=== PATIENT | male | born 1950 ===

== ENCOUNTER 2024-07-11 11:02 | Inpatient (IN) | payer MEDICARE, SELFPAY ==
--- NOTE | ~2024-07-11 | CT_ITS ---
CLINICAL HISTORY: dysarthria, gait disturbance CT angiography head and neck with contrast. 3D Postprocessing. Comparison: CT/SR - CT HEAD FOR STROKE - 07/11/24 18:49 EDT Findings: Aortic arch and cervical great vessels are patent with no aneurysm, dissection, hemodynamically significant stenoses, or occlusion. Intracranial arteries are patent. No aneurysm, dissection, hemodynamically significant stenoses, or occlusion. Incidental note of origin of both posterior cerebral arteries. Incidental note of absence of the left A1 segment. No abnormal intracranial enhancement. The visualized thyroid gland is unremarkable. No cervical mass or fluid collection. Lung apices clear. No lytic or blastic bone lesions. IMPRESSION: Patent head and neck CTA. This document has been electronically signed by: Jean Carlos West MD on 07/11/2024 19:40:57
--- NOTE | ~2024-07-11 | XR_ITS ---
CLINICAL HISTORY: difficulty ambulating Radiographs of the Pelvis and bilateral hips, 5 views Comparison: None Findings: No fracture or dislocation. Kdnt-lq-mqekzpmt degenerative change of the hips, jzgnk-sngymkm-znaa-left. Pubic symphysis and sacroiliac joint spaces are preserved without osteophytosis. Moderate to severe lower lumbar degenerative change. Bone mineralization is normal. Trace vascular calcifications. Prominent amount of stool in the rectum. No soft tissue swelling. Impression: No acute osseous abnormality. Ykmb-gy-cmnqjlsn degenerative change of the hips. Moderate to severe lower lumbar degenerative change. This document has been electronically signed by: Leyda Mckee MD on 07/11/2024 18:57:44
--- NOTE | ~2024-07-11 | XR_ITS ---
EXAMINATION: XR LUMBOSACRAL SPINE CLINICAL INFORMATION: mid lower back pain COMPARISON: None available. TECHNIQUE: Three views of the lumbosacral spine. FINDINGS: Normal bone mineralization. No scoliosis. Straightening of the normal lordosis. Normal sagittal alignment. No fracture, compression deformity, or suspicious bone lesion. Mild to moderate disc degeneration present confined to L4-5 and L5-S1. Discs above L4 appear grossly preserved with minimal degenerative change. Normal facet alignment. Early facet degeneration L4-S1. Imaged SI joints and hip joints demonstrate mild arthritic changes. Sacrum appears intact. Soft tissues demonstrate mild to moderate vascular calcification. XR/XR lumbar spine 2-3V IMPRESSION: 1. No acute bony abnormalities. 2. Mild to moderate spondylosis relatively confined to L4-S1. Electronically signed by: Tino Vera MD 07/11/2024 11:54 AM EDT
--- NOTE | ~2024-07-11 | MR_ITS ---
EXAMINATION: MR BRAIN WITHOUT IV CONTRAST HISTORY: ?CVA TECHNIQUE: Sagittal T1, and axial T1, FLAIR, T2, gradient echo, and diffusion weighted MR images of the brain were obtained. COMPARISON: Correlation is made with an unenhanced head CT dated the . FINDINGS: There is diffuse prominence of the ventricular system and cortical sulci, consistent with atrophy. Periventricular and subcortical white matter hyperintensities are noted on the FLAIR and T2-weighted images which are nonspecific, but often seen in the setting of small vessel ischemic disease. There is a small focus of restricted diffusion in the left coley radiata extending inferiorly to the basal ganglia consistent with an acute infarct. An additional small focus of restricted diffusion is seen in the anteromedial left temporal lobe. There is no mass effect or midline shift. No intra or extra-axial fluid collections are identified. Normal vascular flow voids are noted in the basilar and carotid arteries. The visualized paranasal sinuses are clear. 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 Electronically signed by: Manuel Eubanks MD 07/12/2024 03:24 PM EDT
--- NOTE | ~2024-07-11 | CT_ITS ---
CLINICAL HISTORY: dysarthria, gait disturbance CT head without contrast Comparison: None Findings: No intra-axial mass, midline shift, hydrocephalus, or acute hemorrhage. Cortical banuelos-white differentiation is preserved. Mild cerebral atrophy. Low attenuation in the periventricular white matter consistent with chronic small-vessel ischemic gliosis. Punctate old lacunar infarct in the left basal ganglia. Incidental note of a cavum septum pellucidum. Mucosal thickening of the ethmoid air cells and right frontal sinus. Paranasal sinuses are otherwise clear. The orbits are within normal limits. No skull fracture. IMPRESSION: 1. No acute intracranial findings. This document has been electronically signed by: Jean Carlos West MD on 07/11/2024 19:08:48
[2024-07-11 11:09] VITALS: BP 148/82; PULSE 86; O2SAT 96
--- NOTE | 2024-07-11 11:10 | ED.LOWEXIN ---
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 Reports the pain has been increasing, making it difficult for him to stand up or ambulate. He was diagnosed with sciatica a few years ago and was told to take Tylenol as needed. Denies any new injury/ trauma/ falls. He denies any numbness/tingling of the LEs. Denies headache, dizziness, or vision changes. Denies bowel/ bladder incontinence or retention. Denies dysuria or hematuria. His sister and nephew are at bedside. Patient recently moved here from [place] 3-4 months ago. He is currently residing with his two sisters and his nephew. His sister, Regina, whom is at bedside states that patient is at his baseline mentation. He has been complaining of right lower back pain since arriving at their house a few months ago however it is becoming more constant over the past week. They have been assisting him to ambulate upstairs at home. He ambulates with some physical assistance at baseline however has never required a cane or walker. She also states he's had increased urinary frequency. His family adds that upon leaving [place], he was prescribed a 3 month supply of all of his medications. He has since run out of these medications. It is unclear how long he has been off of them. Related Data Home Medications ?Medication ?Instructions ?Recorded ?Confirmed glimepiride 2 mg tablet 2 mg PO DAILY 07/11/24 metformin 500 mg tablet 500 mg PO DAILY 07/11/24 metoprolol succinate 25 mg 25 mg PO DAILY 07/11/24 tablet,extended release 24 hr rosuvastatin 10 mg tablet 10 mg PO DAILY 07/11/24 Allergies Allergy/AdvReac Type Severity Reaction Status Date / Time No Known Allergies Allergy Verified 07/11/24 11:17 Review of Systems Review of Systems: Yes all other systems are reviewed and are negative PMFSH Past Medical History Attestation statement: The following information was validated with the patient. Source: old records reviewed, obtained from family (sister, nephew) and nursing notes reviewed Social History Social History Advance Directives: No Advance Directives Information Provided: No Do you have a plan to hurt others: No Plan Physical Exam Vital Signs: Vital Signs: Last Vital Signs Temp 98.3 F 07/11/24 19:36 Pulse 71 07/11/24 19:36 Resp 21 H 07/11/24 19:36 BP 143/59 H 07/11/24 19:36 Pulse Ox 97 07/11/24 19:36 O2 Del Method Room Air 07/11/24 19:36 BMI result Body Mass Index 25.6 hypertensive, vitals otherwise wnl General: no acute distress. Skin: Warm, dry, intact. No rashes or lesions. Head: Normocephalic, atraumatic. EENT: Hearing is intact b/l. Conjunctiva clear. PERRLA. EOM intact. Moist mucous membranes.? Neck: Supple without LAD Cardiac: Chest wall symmetric. RRR. Lungs: Normal respiratory effort without accessory muscle use. CTA bilaterally. Abdomen: Soft, non-tender, non-distended. No rebound tenderness or guarding. Positive BS x4. No CVAT. Back: No midline spinous tenderness or step-off deformity. No paraspinal muscle tenderness to palpation. Ext: Upper and lower extremities atraumatic, without tenderness, deformity, swelling or erythema. Full ROM throughout. Neuro: AOx3. 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 NIH 0. Strength 4/5 intact throughout. No saddle anesthesia. Sensation intact to light touch. NV intact distally. Psych: intermittently emotional/ tearful - states this is his basleine. Responds appropriately to questions. NIH Stroke Scale Internal: Initial- Upon Arrival Time: 11:20 Level of Consciousness: Alert Level of Consciousness Questions: Answers both questions correctly Level of Consciousness Commands: Performs both tasks correctly Best Gaze: Normal Visual: No visual loss Facial Palsy: Normal Motor Arm (Right): No drift Motor Arm (Left): No drift Motor Leg (Right): No drift Motor Leg (Left): No drift Limb Ataxia: Absent Sensory: Normal Best Language: No aphasia Dysarthia: Normal Extinction and Inattention: No abnormality Score: 0 Course Course Course Narrative: 1338 -- CBC without leukocytosis or left shift. Normocytic anemia, H&H .5. No priors to compare to. Chemistry without acute electrolyte abnormality requiring intervention. No KARINA. Random glucose 184. total ck mildly elevated to 211. 1L IVF given. no concern for rhabdo. urine infected - will treat UTI w/ ceftin. utox negative. negative covid, flu, and rsv. xr lumbar spine without acute fracture or subluxation. chronic degenerative changes noted. > after discussion with patient and his family, will place consultation for PT/CM as they do not feel patient is safe for discharge home given his pain and difficulty with ambulation. both patient and family confirm that he is full code. he is alert and oriented and capable of making his own decisions. > patient placed in physician observation at this time 1845 -- Patient's niece is now at bedside. she tells me that patient is not at his baseline. she noticed he began to mumble last night prior to him going to bed around 2300. he has also had difficulty with grasping objects since that time as well. On arrival, I noticed some degree of dysarthria. I asked patient and both family members at bedside (sister and nephew) whom patient lives with if this is patient's baseline speech and all three of them reassured myself, and Norma RN at bedside, that this is his baseline speech. his exam was otherwise nonfocal on arrival. on repeat exam, NIH now 1 (with dysarthria). his exam is otherwise nonfocal. > I spoke with my attending, Dr. Cueto regarding new information. We have decided to order CT/ CTA head/ neck to rule out stroke. anticipate admission. 1948 -- CT/CTA head/neck unremarkable. Given reported dysarthria, patient will likely require admission for further work up/ MRI. I spoke with hospitalist, Dr. Carrillo. Patient will be admitted to medicine for further stroke workup. Medications Administered Generic Name Dose Route Start Last Admin Trade Name Freq PRN Reason Stop Dose Admin Cefuroxime Axetil 250 mg 07/11/24 13:45 07/11/24 20:43 Cefuroxime Axetil 250 Mg Tablet PO 250 mg BID JACIEL Administration Discontinued Medications Generic Name Dose Route Start Last Admin Trade Name Jayson PRN Reason Stop Dose Admin Acetaminophen 975 mg 07/11/24 13:39 07/11/24 13:51 Acetaminophen 325 Mg Tablet PO 07/11/24 13:40 975 mg ONCE ONE Administration Sodium Chloride 1,000 mls @ 999 mls/hr 07/11/24 12:30 07/11/24 15:17 Ns IV 07/11/24 13:30 Infused .Q1H1M JACIEL Infusion Iohexol 100 ml 07/11/24 18:53 07/11/24 18:54 Iohexol 350 Mg/Ml 100 Ml Infus..Btl IV 07/11/24 18:54 70 ml ONCE ONE Administration Medical Decision Making Medical Decision Making [facility] Narrative: 73 year old male with pmhx significant for HTN and DM presents to the ED today via EMS from home for evaluation of right lower back pain radiating to right lower extremity x5 years. hypertensive, vitals otherwise wnl. he is nontoxic appearing. please refer to physical exam portion for findings. Differential diagnosis includes compression fracture, msk sprain/strain, contusion, sciatica, arthritis, urinary tract infection. Lower suspicion for renal colic, nephrolithiasis. Unlikely cauda equina, Guillain-[place], epidural abscess, cord compression. Plan for basic labs, UA, imaging, pain control, and re-evaluation. Anticipate PT/CM for disposition. Differential Diagnosis Differential Diagnoses: The differential diagnosis associated with the presentation includes As above Admission/Observation Consideration of admission/observation: Escalation of care including admission/observation considered patient admitted to medicine for dysarthria Consult Healthcare Provider Management of the patient was discussed with: Hospitalist (de. carrillo) Lab Data [facility] Lab Attestation statement: I reviewed the patient's lab results. As above 07/11/24 11:52 07/11/24 11:52 Labs: Lab Results 07/11/24 07/11/24 07/11/24 Range/Units 11:52 12:18 19:34 WBC 9.1 (4.8-10.8) X10*3/uL RBC 4.80 (4.60-5.80) X10*6/uL Hgb 13.0 L (14.0-18.0) g/dl Hct 38.5 L (42.0-52.0) % MCV 80.2 (80.0-98.0) fL MCH 27.1 (27.0-33.0) pg MCHC 33.8 (31.0-36.0) g/dl RDW 12.8 (11.0-16.0) % Plt Count 233 (160-400) X10*3/uL MPV 10.5 (9.4-12.4) fL Immature Gran % (Auto) 0.2 (0.0-0.4) % Neut % (Auto) 73.0 (45-73) % Lymph % (Auto) 19.8 L (20-40) % [place] % (Auto) 6.4 (2-11) % Eos % (Auto) 0.1 (0-4) % Baso % (Auto) 0.5 (0-2) % Lymph # (Auto) 1.8 (1.2-4.9) X10*3/uL [place] # (Auto) 0.6 (0.1-1.2) X10*3/uL Eos # (Auto) 0.0 (0.0-0.4) X10*3/uL Baso # (Auto) 0.1 (0.0-0.2) X10*3/uL Abs Immat Gran (auto) 0.02 (0.00-0.03) X10*3/uL Absolute Neuts (auto) 6.7 (2.0-8.3) x10*3/uL Absolute Nucleated RBC 0.000 (0.0-0.012) X10*3/uL Nucleated RBC % (auto) 0.0 (0.0-0.2) /100WBC PT 15.1 H (10.9-12.4) SEC INR 1.3 H (0.9-1.1) APTT 30.1 (26.0-36.8) SEC Sodium 138 (135-145) mmol/L Potassium 4.0 (3.3-5.1) mmol/L Chloride 105 (96-108) mmol/L Carbon Dioxide 28 (22-29) mmol/L Anion Gap 9 L (12-20) BUN 6 L (9-16) mg/dL Creatinine 0.70 (0.5-1.4) mg/dL Estim Creat Clear Calc 81.0 Estimated GFR > 60 Random Glucose 184 H (60-115) mg/dL Calcium 8.7 (8.4-10.2) mg/dL Magnesium 1.7 (1.6-2.6) mg/dL Total Bilirubin 0.4 (0.0-1.0) mg/dL AST 24 (5-37) U/L ALT 13 (0-40) U/L Alkaline Phosphatase 61 (39-117) U/L Total Creatine Kinase 211 H (38-174) U/L Troponin I High Sens 19.2 (<3.5-35.0) ng/L Total Protein 6.9 (6.5-8.0) g/dL Albumin 3.8 (3.5-5.0) g/dL Lipase 22 (8-78) U/L Urine Color Yellow Urine Appearance Cloudy Urine pH 7.0 (5.0-9.0) Ur Specific [place] >= 1.030 H (1.005-1.025) Urine Protein Trace (Neg-Trace) mg/dL Urine Glucose (UA) >=1000 H (Negative) mg/dL Urine Ketones 40 (Negative) mg/dL Urine Blood Negative (Negative) Urine Nitrite Negative (Negative) Ur Leukocyte Esterase Small (1+) H (Negative) Urine RBC 0-2 (0-2) /HPF Urine WBC >50 H (0-5) /HPF Ur Squamous Epith Cells 0-2 (0-2) /HPF Urine Bacteria 1+ (None Seen) Hyaline Casts 0-2 (0-2) /LPF Urine Opiates Screen Not Detected (Not Detect) Ur Buprenorphine Scrn Not Detected (Not Detect) ng/mL Ur Oxycodone Screen Not Detected (Not Detect) ng/mL Urine Methadone Screen Not Detected (Not Detect) ng/mL Urine Fentanyl Screen Not Detected (Not Detect) Ur Barbiturates Screen Not Detected (Not Detect) Ur Phencyclidine Scrn Not Detected (Not Detect) Ur Amphetamines Screen Not Detected (Not Detect) U Benzodiazepines Scrn Not Detected (Not Detect) Urine Cocaine Screen Not Detected (Not Detect) U Marijuana (THC) Screen Not Detected (Not Detect) Influenza Type A (PCR) NEGATIVE (Negative) Influenza Type B (PCR) NEGATIVE (Negative) RSV RNA Qual (PCR) NEGATIVE (Negative) SARS-CoV-2 RNA (RT-PCR) NEGATIVE (Negative) Independent Interpretation I performed an independent interpretation of an: Plain X-Ray Interpretation: X-ray lumbar spine without acute fracture ekg showing nsr, without acute ischemic changes or st elevations ct head/brain without bleed or mass Radiology Impression Discussion of test interpretation with radiology: I have reviewed the radiologist's reading. Radiologist Impression: Procedure(s): XR lumbar spine 2-3V Accession Number(s): [id number] cc: Georgia Turner~ EXAMINATION: XR LUMBOSACRAL SPINE CLINICAL INFORMATION: mid lower back pain COMPARISON: None available. TECHNIQUE: Three views of the lumbosacral spine. FINDINGS: Normal bone mineralization. No scoliosis. Straightening of the normal lordosis. Normal sagittal alignment. No fracture, compression deformity, or suspicious bone lesion. Mild to moderate disc degeneration present confined to L4-5 and L5-S1. Discs above L4 appear grossly preserved with minimal degenerative change. Normal facet alignment. Early facet degeneration L4-S1. Imaged SI joints and hip joints demonstrate mild arthritic changes. Sacrum appears intact. Soft tissues demonstrate mild to moderate vascular calcification. XR/XR lumbar spine 2-3V IMPRESSION: 1. No acute bony abnormalities. 2. Mild to moderate spondylosis relatively confined to L4-S1. Electronically signed by: Tino Vera MD 07/11/2024 11:54 AM EDT RP Procedure(s): CT head for STROKE Accession Number(s): [id number] cc: Physician,None ; Georgia Turner~ Report Number: [id number]: Total DLP = 605.00 mGy-cm ADDENDUMThis document has been electronically signed by: Jean Carlos West MD on 07/11/2024 19:08:48 ADDENDUM: This report was discussed with Flor Cuevas RN on Jul 11, 2024 19:16:00 EDT. This document has been electronically signed by: Daija Angel on 07/11/2024 19:17:18 Addendum Dictated By: Jean Carlos West MD Addendum Signed By: <Electronically signed by Jean Carlos West MD in OV> 07/11/241917 Addendum Cosigned By: DD/ TD/TT: 07/11/24 CLINICAL HISTORY: dysarthria, gait disturbance CT head without contrast Comparison: None Findings: No intra-axial mass, midline shift, hydrocephalus, or acute hemorrhage. Cortical banuelos-white differentiation is preserved. Mild cerebral atrophy. Low attenuation in the periventricular white matter consistent with chronic small-vessel ischemic gliosis. Punctate old lacunar infarct in the left basal ganglia. Incidental note of a cavum septum pellucidum. Mucosal thickening of the ethmoid air cells and right frontal sinus. Paranasal sinuses are otherwise clear. The orbits are within normal limits. No skull fracture. IMPRESSION: 1. No acute intracranial findings. This document has been electronically signed by: Jean Carlos West MD on 07/11/2024 19:08:48 Procedure(s): CT angio head neck STROKE Accession Number(s): [id number] cc: Physician,None ; Georgia Turner~ Report Number: [id number]: Total DLP = 671.00 mGy-cm CLINICAL HISTORY: dysarthria, gait disturbance CT angiography head and neck with contrast. 3D Postprocessing. Comparison: CT/SR - CT HEAD FOR STROKE - 07/11/24 18:49 EDT Findings: Aortic arch and cervical great vessels are patent with no aneurysm, dissection, hemodynamically significant stenoses, or occlusion. Intracranial arteries are patent. No aneurysm, dissection, hemodynamically significant stenoses, or occlusion. Incidental note of origin of both posterior cerebral arteries. Incidental note of absence of the left A1 segment. No abnormal intracranial enhancement. The visualized thyroid gland is unremarkable. No cervical mass or fluid collection. Lung apices clear. No lytic or blastic bone lesions. IMPRESSION: Patent head and neck CTA. This document has been electronically signed by: Jean Carlos West MD on 07/11/2024 19:40:57 Independent Historian Clinical information obtained from an independent historian. History obtained from or confirmed by: Other (sister, nephew, niece) Prescription Management I considered prescription management with: Pain Medication and Antibiotic Chronic Conditions Patient?s care impacted by: Diabetes and Hypertension Social Determinants Patient?s care significantly limited by Social Determinants of Health including: Other Social Determinant of Health Critical Care Time Critical Care Time Critical Care Time: No Discharge Plan Discharge Clinical Impression: Urinary tract infection, Low back pain, Dysarthria Patient Disposition: Admitted As Inpatient Print Language: Micronesian
[2024-07-11 11:12] VITALS: BP 162/75; PULSE 74; RESP 16; TEMP 36.8; O2SAT 98
[2024-07-11 11:14] VITALS: BP 162/75; PULSE 74; RESP 14; TEMP 36.8; O2SAT 98; BMI 25.6
[2024-07-11 11:58] LABS: MANUAL DIFF FLAG NO
[2024-07-11 11:59] LABS: Basophils Absolute Auto 0.1 X10*3/uL (0.0-0.2); Basophils Percent Auto 0.5 % (0-2); Eosinophils Percent Auto 0.1 % (0-4); Hematocrit 38.5 % (42.0-52.0); Imm Gran Abs Auto 0.02 X10*3/uL (0.00-0.03); Imm Gran Pct Auto 0.2 % (0.0-0.4); Lymphocytes Absolute Auto 1.8 X10*3/uL (1.2-4.9); Lymphocytes Percent Auto 19.8 % (20-40); Mean Corpuscular HGB Conc 33.8 g/dl (31.0-36.0); Mean Corpuscular Hemoglobin 27.1 pg (27.0-33.0); Mean Corpuscular Volume 80.2 fL (80.0-98.0); Mean Platelet Volume 10.5 fL (9.4-12.4); Monocytes Absolute Auto 0.6 X10*3/uL (0.1-1.2); Monocytes Percent Auto 6.4 % (2-11); Neutrophils Absolute Auto 6.7 x10*3/uL (2.0-8.3); Platelet Count 233 X10*3/uL (160-400); Red Cell Distribution Width 12.8 % (11.0-16.0); White Blood Count 9.1 X10*3/uL (4.8-10.8)
[2024-07-11 12:15] LABS: Alanine Aminotransferase 13 U/L (0-40); Albumin Level 3.8 g/dL (3.5-5.0); Alkaline Phosphatase 61 U/L (39-117); Anion Gap 9 (12-20); Aspartate Amino Transferase 24 U/L (5-37); Bilirubin Total 0.4 mg/dL (0.0-1.0); Blood Urea Nitrogen 6 mg/dL (9-16); Calcium 8.7 mg/dL (8.4-10.2); Carbon Dioxide 28 mmol/L (22-29); Chloride 105 mmol/L (96-108); Estimated Glomerular Filt Rate > 60; Glucose Random 184 mg/dL (60-115); Lipase 22 U/L (8-78); Magnesium 1.7 mg/dL (1.6-2.6); Sodium 138 mmol/L (135-145); Total Protein 6.9 g/dL (6.5-8.0)
[2024-07-11 12:29] LABS: Appearance Urine Cloudy; Color Urine Yellow; Glucose Urine UA >=1000 mg/dL (Negative); Leukocyte Esterase Urine Small (1+) (Negative); Nitrite Urine Negative (Negative); Specific Gravity - Urine >= 1.030 (1.005-1.025); UMIC TRIGGER UACC YES; Urine Blood Negative (Negative); Urine Ketones 40 mg/dL (Negative); Urine Protein Trace mg/dL (Neg-Trace)
[2024-07-11 12:36] LABS: Influenza A PCR NEGATIVE (Negative); Influenza B PCR NEGATIVE (Negative); Resp Syncy Virus RNA Qual PCR NEGATIVE (Negative); SARS COV2 PCR INHOUSE NEGATIVE (Negative)
[2024-07-11 12:38] LABS: Amphetamine Screen Urine Not Detected (Not Detect); Barbiturates, Urine Not Detected (Not Detect); Benzodiazepines Screen Urine Not Detected (Not Detect); Buprenorphine Scr Not Detected (Not Detect); Cannabinoid Screen Urine Not Detected (Not Detect); Cocaine Screen Urine Not Detected (Not Detect); Fentanyl, urine Not Detected (Not Detect); Methadone Screen, Urine Not Detected (Not Detect); Opiate Screen Urine Not Detected (Not Detect); Oxycodone Screen Urine Not Detected (Not Detect); Phencyclidine Screen Urine Not Detected (Not Detect)
[2024-07-11] MEDS: 0.9 % Sodium Chloride 1,000 ML 999 ML IV (12:38)
[2024-07-11 12:41] LABS: Bacteria Urine 1+ (None Seen); Hyaline Casts Urine 0-2 /LPF (0-2); RBC Urine 0-2 /HPF (0-2); Squamous Epithelial Cell Urine 0-2 /HPF (0-2); UACC Culture Trigger YES; WBC Urine >50 /HPF (0-5)
[2024-07-11] MEDS: cefuroxime axetiL 250 MG TABLET PO ×2 (13:51→20:43)
[2024-07-11] MEDS: Acetaminophen 325 MG TABLET 975 MG PO (13:51)
[2024-07-11 14:21] VITALS: BP 162/75; PULSE 74; O2SAT 98
--- NOTE | 2024-07-11 14:23 | MHC.CM.ED ---
Received case management consult from Georgia PASCUAL. Patient came to the ER due to leg pain and difficulty ambulating. Physical therapy eval completed. Rehab is recommended. It does not appear patient has been inpatient any facility in the past 30 days. Referral will be made to all 3 acute rehab facilities. Continue to monitor for d/c needs.
--- NOTE | 2024-07-11 15:34 | MHC.CM.ED ---
Met with patient, 2 sisters and video specialist. Patient lives with 1 of his sisters, ambulates independently and had no services prior to coming to the ER. Patient does not have an established PCP yet Patient moved from [place] about 4 months ago. Patient's PCP provided 3 months worth of prescriptions. Patient ran out of those medications for DM and HTN. Patient and sisters aware [facility] unable to offer a bed. Waiting to hear if [facility] can offer a bed. If [facility] is not able to offer a bed, private pay SNF placement is not an option for patient and family. VNA will also not be able to be made because patient has not established care with a PCP. Patient has a new patient appointment on 07/30. Patient and sisters are aware patient will have to d/c home with family caring for patient. Continue to monitor for d/c needs.
--- NOTE | 2024-07-11 18:53 | ECG_ITS ---
Test Reason : stroke Blood Pressure : */* mmHG Vent. Rate : 69 BPM Atrial Rate : 69 BPM P-R Int : 136 ms QRS Dur : 74 ms QT Int : 394 ms P-R-T Axes : * 192 126 degrees QTcB Int : 422 ms Suspect limb lead reversal, interpretation assumes no reversal Normal sinus rhythm Right superior axis deviation Abnormal ECG No previous ECGs available Referred By: Georgia Turner Electronically Signed By: ALEKSANDAR BURNETT MD
[2024-07-11] MEDS: iohexoL 350 MG/ML 100 ML INFUS..BTL IV (18:54)
--- NOTE | 2024-07-11 19:16 | PC.NURSE ---
Phone call from [facility] notification from Daija Angel of No acute findings on CT SCAN w. contrast provider SAMARA Turner notified.
[2024-07-11 19:36] VITALS: BP 143/59; PULSE 71; RESP 21; TEMP 36.8; O2SAT 97
[2024-07-11 19:45] LABS: INTERNATIONAL NORM RATIO 1.3 (0.9-1.1); Prothrombin Time 15.1 SEC (10.9-12.4)
[2024-07-11 19:48] LABS: Partial Thromboplastin Time 30.1 SEC (26.0-36.8)
--- NOTE | 2024-07-11 19:49 | MHC.CM.ED ---
CM met with patient, sisters and niece. Pt and sisters are French speaking only. Niece speaks Romanian. language interpreter used. HCP reviewed, completed and signed. Uploaded into [facility]. Copies given to niece. HCP/niece Nick Pruett ). Family tells CM that patient uses a walker and furniture walks in the home . He can normally complete ADL's. Had great difficulty ambulating today, Could not get OOB. Had difficultly feeding himself and holding his utensils. Bedrooms are on the second floor. His sisters are unable to care for him at right now. They are requesting patient remain overnight. Provider aware. Pt was medically cleared. PT recommended rehab and acute referrals were made, as patient does not have a qualifying stay. Has Medicare. As noted, patient moved from [place] to be cared for by family. Pt has his first PCP appointment with Juan Alberto SINGH at [facility] adult Primary care on 07/30. Pt cannot have home services, as he does not have a PCP. There are also insurance concerns. Pt received no bed offers at acute rehab. Pt has a Medicare advantage program-[place]. He [place] medicaid, not [place]. Pt will have additional medical work up. Referral placed with [facility] financial for assistance with [employer] application. Pt will remain overnight, with possible admission. Daughter encouraged to complete application for (or convert [place] to [facility] [facility] [facility], as medicaid does not transfer from state to [facility]. CM will follow for safe discharge plan.
[2024-07-11 19:50] LABS: Troponin-I High Sensitivity 19.2 ng/L (<3.5-35.0)
--- NOTE | 2024-07-11 21:38 | PHA.MEDREC ---
Addendum entered by Nevaeh De Leon [facility] 07/12/24 14:41: Reviewed by [facility] Addendum entered by Namita Patel 07/12/24 14:21: Got list faxed from [facility] and Metformin and Glimperide that was filled over there vs what the family confirmed with us is. The patient family confirmed Metformin 500mg but on the list from [facility] it showed the patient had gotten a Metformin 850mg tab twice a day, the family also confirmed the Glimperide 2mg tab once a day and looking at the list faxed to us the patient had gotten Glimperide 4mg tab once daily 01/16; I called the patients family and they had bottles of Metformin 850mg tab twice a day and Glimperide 4mg tab once a day filled in January 2024 at home still. Original Note: Pharmacy Consult ? Medication Reconciliation Pharmacy has completed the medication reconciliation. Spoke with patient through an rn immunology, he was able to list some medication names but no directions. Called patients hermes [place]. She was able to get medication names from her mom reading his prescriptions at home: metoprolol 25 mg, glimepiride 2 mg, metformin 500 mg, and rosuvastatin 10 mg. Patient did list off more medications. Samanta gave me his pharmacy from [place]. Will have med [facility] call them tomorrow to follow up on med list. [facility] [phone].
[2024-07-11 22:31] VITALS: BP 163/71; PULSE 74; RESP 16; TEMP 36.9; O2SAT 97
[2024-07-12] VITALS (11 sets, daily range): BP systolic 138–163; BP diastolic 62–102; PULSE 66–99; RESP 15–20; TEMP 36.6–37.2; O2SAT 90–98
[2024-07-12 00:34] LABS: Cholesterol 92 mg/dL (<200); HDL Cholesterol 43 mg/dL (>40); LDL Cholesterol Calculated 39 mg/dL (<100); Triglycerides 54 mg/dL (<150)
[2024-07-12] MEDS: Aspirin 325 MG TABLET PO (00:42)
[2024-07-12] MEDS: Enoxaparin Sodium 40 MG/0.4 ML SYRINGE SUBCUT ×2 (00:43→22:32)
--- NOTE | 2024-07-12 02:32 | P.HPHOSP_ITS ---
History of Present Illness Date of Service: 07/11/24 Attending physician on admission: Darrel Carrillo Chief Complaint: back pain, weakness Patient is a 78-year-old Urdu-speaking male with a past medical history significant for HTN and type 2 diabetes, who presented to the ED due to chronic right lower back pain radiating to the lower extremities and weakness. Reports right-sided weakness today in inability to ambulate. He also reports dysarthria which was mentioned by a family member while in the ED, the patient agrees. Last known time prior to weakness and dysarthria is unknown. Patient also reports urinary frequency but denies any urgency, dysuria or hematuria. He denies any headache, fever, chills, numbness or tingling, change in vision, bowel or bladder incontinence. He recently moved here from [place], and has been without his medications for hypertension and diabetes for an unknown period of time. Review of Systems 2 Constitutional: Constitutional: Denies body ache(s), Denies chills, Denies fatigue, Denies fever(s) and Denies headache(s) Eyes: Eyes: Denies change in vision and Denies photophobia ENT: Denies dizziness, Denies headache(s), Denies nasal congestion, Denies nasal discharge and Denies sore throat Cardiovascular: Cardiovascular: Denies chest pain, Denies rapid heart rate, Denies leg edema, Denies lightheadedness and Denies dyspnea Respiratory: Respiratory: Denies chest congestion, Denies cough, Denies dyspnea and Denies wheezing Gastrointestinal: Gastrointestinal: Denies abdominal pain, Denies melena, Denies hematochezia, Denies diarrhea, Denies nausea and Denies vomiting Genitourinary: Genitourinary: Denies difficulty urinating, Denies dysuria, Reports urinary frequency and Denies urinary urgency Musculoskeletal: Musculoskeletal: Reports muscle weakness (right side), Denies numbness and Denies tingling Integumentary/Breasts: Skin/Breast: Denies rash Neurologic: Denies confusion, Denies dizziness, Denies headache(s), Reports focal weakness, Denies numbness and Denies tingling Psychiatric: Psychiatric: Denies confusion Endocrine: Endocrine: Denies fatigue Hematologic/Lymphatic: Hematologic/Lymphatic: Denies easy bleeding and Denies easy bruising Allergic/Immunologic: Allergic/Immunologic: Denies wheezing [facility] Medical History (Updated 07/12/24 @ 02:46 by Iraida Cardenas PA-C) Chronic back pain Type 2 diabetes mellitus without complications HTN (hypertension) Functional capacity: uses cane/walker Social History Advance Directives: No Advance Directives Information Provided: No Do you have a plan to hurt others: No Plan Narrative: History of smoking, no alcohol or drug use Meds Allergies Allergy/AdvReac Type Severity Reaction Status Date / Time No Known Allergies Allergy Verified 07/11/24 11:17 Active Medications: Current Medications Acetaminophen (Acetaminophen 325 Mg Tablet) 975 mg PO Q6H PRN PRN Reason: Pain, Mild 1-3,fever,headache Calcium Carbonate (Calcium Carbonate 750 Mg Tab.Chew) 750 mg PO Q4H PRN PRN Reason: Heartburn Cefuroxime Axetil (Cefuroxime Axetil 250 Mg Tablet) 250 mg PO BID [facility] Last Admin: 07/11/24 20:43 Dose: 250 mg Dextrose (Dextrose 50 % 25 Gm/50 Ml Syringe) 25 gm IVPUSH Q15M PRN; Protocol PRN Reason: per Hypoglycemia Standing Ord. Enoxaparin Sodium (Enoxaparin Sodium 40 Mg/0.4 Ml Syringe) 40 mg SUBCUT Q24H [facility] Last Admin: 07/12/24 00:43 Dose: 40 mg Glucose (Glucose Gel 15 Gm Gel..Gram.) 15 gm PO Q15M PRN; Protocol PRN Reason: per Hypoglycemia Standing Ord. Insulin Human Lispro (Insulin Lispro 100 Unit/Ml 3 Ml Vial) 0 unit SUBCUT QIDACHS [facility]; Protocol Magnesium Hydroxide (Milk Of Magnesia 30 Ml Oral.Susp) 30 ml PO DAILY PRN PRN Reason: Constipation Melatonin (Melatonin 3 Mg Tablet) 6 mg PO BEDTIME PRN PRN Reason: Insomnia Ondansetron HCl (Ondansetron Hcl 4 Mg/2 Ml Vial) 4 mg IVPUSH Q8H PRN PRN Reason: Nausea and Vomiting Oxycodone HCl (Oxycodone Hcl Immed Release 5 Mg Tablet) 5 mg PO Q6H PRN PRN Reason: Pain, Moderate(Pain Scale 4-6) Polyethylene Glycol (Polyethylene Glycol 3350 17 Gm Powd.Pack) 17 gm PO DAILY PRN PRN Reason: Constipation Sodium Chloride (0.9 % Sodium Chloride Flush 3 Ml Syringe) 3 ml IVFLUSH QSHIFT [facility] Last Admin: 07/12/24 00:43 Dose: Not Given Home Medications ?Medication ?Instructions ?Recorded ?Confirmed ?Last Taken ?Type glimepiride 2 mg tablet 2 mg PO DAILY 07/11/24 Unknown History metformin 500 mg tablet 500 mg PO DAILY 07/11/24 Unknown History metoprolol succinate 25 mg 25 mg PO DAILY 07/11/24 Unknown History tablet,extended release 24 hr rosuvastatin 10 mg tablet 10 mg PO DAILY 07/11/24 Unknown History Physical Exam 2 Vital Signs and Narrative: Vital Signs: Last Vital Signs Temp 98.9 F 07/12/24 01:42 Pulse 99 07/12/24 01:42 Resp 19 07/12/24 01:42 BP 147/76 H 07/12/24 01:42 Pulse Ox 95 07/12/24 01:42 O2 Del Method Room Air 07/12/24 01:42 BMI result Body Mass Index 25.6 General: AOx3, no acute distress. Seen with aerial photograph interpreter Resp: CTA bilaterally CVS: S1, S2, RRR GI: +BS, NT, no distention Skin: Warm, dry Neuro: Pupils equal round and reactive to light, EOMs intact, patient will sensation intact bilaterally. Tongue deviates to the left, slight facial droop to the left, dysarthria. Right upper extremity weakness, 3 to 4/5 right side, 4 to 5/5 left side. Mild asymmetry with strength in right lower extremity versus left lower extremity. Motor grossly intact bilaterally Extremities: No LE edema Psych: Appropriate affect Const: General: No confusion Orientation/consciousness: No confusion Eyes: Direct Ophthalmoscopy: No photophobia Neuro: General: No confusion Results Labs 07/11/24 11:52 07/11/24 11:52 Labs: Laboratory Results - last 24 hr 07/11/24 07/11/24 07/11/24 11:52 12:18 19:34 MCV 80.2 MCH 27.1 MCHC 33.8 RDW 12.8 Plt Count 233 MPV 10.5 Immature Gran % (Auto) 0.2 Neut % (Auto) 73.0 Lymph % (Auto) 19.8 L [place] % (Auto) 6.4 Eos % (Auto) 0.1 Baso % (Auto) 0.5 Lymph # (Auto) 1.8 [place] # (Auto) 0.6 Eos # (Auto) 0.0 Baso # (Auto) 0.1 Abs Immat Gran (auto) 0.02 Absolute Neuts (auto) 6.7 Absolute Nucleated RBC 0.000 Nucleated RBC % (auto) 0.0 PT 15.1 H INR 1.3 H APTT 30.1 Anion Gap 9 L Estim Creat Clear Calc 81.0 Estimated GFR > 60 Random Glucose 184 H Calcium 8.7 Magnesium 1.7 Total Bilirubin 0.4 AST 24 ALT 13 Alkaline Phosphatase 61 Total Creatine Kinase 211 H Total Protein 6.9 Albumin 3.8 Triglycerides 54 Cholesterol 92 LDL Cholesterol, Calc 39 HDL Cholesterol 43 Lipase 22 Urine Color Yellow Urine Appearance Cloudy Urine pH 7.0 Ur Specific [place] >= 1.030 H Urine Protein Trace Urine Glucose (UA) >=1000 H Urine Ketones 40 Urine Blood Negative Urine Nitrite Negative Ur Leukocyte Esterase Small (1+) H Urine RBC 0-2 Urine WBC >50 H Ur Squamous Epith Cells 0-2 Urine Bacteria 1+ Hyaline Casts 0-2 Urine Opiates Screen Not Detected Ur Buprenorphine Scrn Not Detected Ur Oxycodone Screen Not Detected Urine Methadone Screen Not Detected Urine Fentanyl Screen Not Detected Ur Barbiturates Screen Not Detected Ur Phencyclidine Scrn Not Detected Ur Amphetamines Screen Not Detected U Benzodiazepines Scrn Not Detected Urine Cocaine Screen Not Detected U Marijuana (THC) Screen Not Detected Influenza Type A (PCR) NEGATIVE Influenza Type B (PCR) NEGATIVE RSV RNA Qual (PCR) NEGATIVE SARS-CoV-2 RNA (RT-PCR) NEGATIVE Imaging Radiologist's Impressions: Impressions Lumbar Spine X-Ray 07/11/24 11:26 IMPRESSION: 1. No acute bony abnormalities. 2. Mild to moderate spondylosis relatively confined to L4-S1. Electronically signed by: Tino Vera MD 07/11/2024 11:54 AM EDT Assessment and Plan (1) Dysarthria: Status: Acute (2) Right sided weakness: Status: Acute (3) Urinary tract infection: Status: Acute (4) Chronic back pain: Status: Chronic Plan Patient is a 78-year-old male with a past medical history significant for HTN and type 2 diabetes, who presented to the ED due to chronic right lower back pain radiating to the lower extremities and weakness. Reports right-sided weakness today in inability to ambulate. Dysarthria and right-sided weakness, likely CVA - head CT and CTA head and neck negative - u tox negative - EKG with NSR - continued dysarthria and right upper extremity/right lower extremity weakness - last known prior to deficits unknown - MRI brain ordered - passed bedside swallow - PT/OT eval - neurology consult - monitor on telemetry - ASA 325 mg given - continue statin, await Neurology recommendation for possible increased dose - lipid panel within normal limits - neuro checks q.2h - stroke education Urinary tract infection - UA positive, culture pending - started on Ceftin in ED, continue pending culture Chronic back pain - lumbar spine x-ray with no acute bony abnormalities, [id number] spondylosis relatively confined to L4-S1 - bilateral hip/pelvis x-rays with no acute osseous abnormality. Mild to moderate degenerative change of the hips. Moderate to severe lower lumbar degenerative changes. HTN - BP okay at this time - resume metoprolol 25 mg daily when appropriate Type 2 diabetes - hold home glimepiride and metformin - sliding scale insulin - diabetic diet - A1C pending Full code VTE prophylaxis: Lovenox Patient with new onset dysarthria and right-sided weakness, likely CVA, complicated by urinary tract infection, requiring admission for at least 2 midnights stay for further neurologic evaluation and monitoring. Quality Stroke Does the patient have a stroke diagnosis?: Yes Reason for No Anti-thrombotic by Day Two: Drug treatment not indicated VTE Prior VTE?: No VTE Risk Level:: Medical - moderate - high VTE Device Contraindication: Treatment Not Indicated VTE Drug Contraindication: N/A - Med Ordered
[2024-07-12 04:23] LABS: Glucose, Whole Blood 158 mg/dL (60-115)
[2024-07-12 05:59] LABS: Estimated Average Glucose 203 mg/dL; Hemoglobin A1c % 8.7 % (<6.0); Total Hemoglobin (HGBA1C) 3447.9232 umol/L
[2024-07-12 06:12] LABS: Hematocrit 36.3 % (42.0-52.0); Hemoglobin 12.4 g/dl (14.0-18.0); Mean Corpuscular HGB Conc 34.2 g/dl (31.0-36.0); Mean Corpuscular Hemoglobin 27.5 pg (27.0-33.0); Mean Corpuscular Volume 80.5 fL (80.0-98.0); Platelet Count 200 X10*3/uL (160-400); Red Blood Count 4.51 X10*6/uL (4.60-5.80); White Blood Count 6.3 X10*3/uL (4.8-10.8)
[2024-07-12 06:29] LABS: Anion Gap 11 (12-20); Blood Urea Nitrogen 4 mg/dL (9-16); Calcium 8.3 mg/dL (8.4-10.2); Carbon Dioxide 26 mmol/L (22-29); Chloride 105 mmol/L (96-108); Creatinine Clr Calc Pharmacy 82.2; Estimated Glomerular Filt Rate > 60; Glucose Random 149 mg/dL (60-115); Potassium 3.9 mmol/L (3.3-5.1); Sodium 138 mmol/L (135-145)
[2024-07-12 08:10] LABS: Glucose, Whole Blood 152 mg/dL (60-115)
[2024-07-12] MEDS: cefuroxime axetiL 250 MG TABLET PO ×2 (08:40→22:34)
[2024-07-12] MEDS: 0.9 % Sodium Chloride Flush 3 ML SYRINGE IVFLUSH ×3 (08:40→22:34)
[2024-07-12] MEDS: Insulin Lispro 100 UNIT/ML 3 ML VIAL SUBCUT ×3 (08:40→22:34)
--- NOTE | 2024-07-12 08:48 | PC.NURSE ---
MRI screening sheet completed and faxed. Pt continues with right sided weakness, right facial droop and some garbled speech. Pt tolerated am medication with water without any cough.
--- NOTE | 2024-07-12 12:28 | P.CNNE_ITS ---
History of Present Illness Data of Consult Service Date: 07/12/24 Primary Care Provider: None Physician HPI Reason for consult: Dysarthria 73 years old man with hypertension who came to hospital for back pain but also reported difficulty with speaking. Onset of difficulties with speaking was unclear and for possibility of stroke this consultation was requested. There was no complaint of associated arm or leg weakness or any visual symptom. Review of Systems 2 Review of Systems: No recent cold or flu-like illness. [facility] Past Medical History Medical History Chronic back pain Type 2 diabetes mellitus without complications HTN (hypertension) Social History Social History Household Members: Family Housing: House Do you presently have visiting nurse or other home services: No Patient Tobacco Use Status: Never used Tobacco Use of substances other than those prescribed or required for medical reasons: No Have you been hit, kicked, punched, or otherwise hurt by someone within the past year? If so, by whom?: No Do you feel safe in your current relationship?: No Current Relationship Is there a partner from a previous relationship who is making you feel unsafe now?: No Are you made to feel afraid or neglected: No Advance Directives: No Advance Directives Information Provided: No Do you have a plan to hurt others: No Plan Recently lost weight without trying: No How much weight loss: Not applicable Eating poorly because of decreased appetite: No Nutrition screen score: 0 Nutrition Risks: No Nutritional Risk Poor oral hygiene: No Meds Allergies Allergy/AdvReac Type Severity Reaction Status Date / Time No Known Allergies Allergy Verified 07/11/24 11:17 Active Medications: Current Medications Acetaminophen (Acetaminophen 325 Mg Tablet) 975 mg PO Q6H PRN PRN Reason: Pain, Mild 1-3,fever,headache Calcium Carbonate (Calcium Carbonate 750 Mg Tab.Chew) 750 mg PO Q4H PRN PRN Reason: Heartburn Cefuroxime Axetil (Cefuroxime Axetil 250 Mg Tablet) 250 mg PO BID [facility] Last Admin: 07/12/24 08:40 Dose: 250 mg Dextrose (Dextrose 50 % 25 Gm/50 Ml Syringe) 25 gm IVPUSH Q15M PRN; Protocol PRN Reason: per Hypoglycemia Standing Ord. Enoxaparin Sodium (Enoxaparin Sodium 40 Mg/0.4 Ml Syringe) 40 mg SUBCUT Q24H [facility] Last Admin: 07/12/24 00:43 Dose: 40 mg Glucose (Glucose Gel 15 Gm Gel..Gram.) 15 gm PO Q15M PRN; Protocol PRN Reason: per Hypoglycemia Standing Ord. Insulin Human Lispro (Insulin Lispro 100 Unit/Ml 3 Ml Vial) 0 unit SUBCUT QIDACHS [facility]; Protocol Last Admin: 07/12/24 11:10 Dose: Not Given Magnesium Hydroxide (Milk Of Magnesia 30 Ml Oral.Susp) 30 ml PO DAILY PRN PRN Reason: Constipation Melatonin (Melatonin 3 Mg Tablet) 6 mg PO BEDTIME PRN PRN Reason: Insomnia Ondansetron HCl (Ondansetron Hcl 4 Mg/2 Ml Vial) 4 mg IVPUSH Q8H PRN PRN Reason: Nausea and Vomiting Oxycodone HCl (Oxycodone Hcl Immed Release 5 Mg Tablet) 5 mg PO Q6H PRN PRN Reason: Pain, Moderate(Pain Scale 4-6) Polyethylene Glycol (Polyethylene Glycol 3350 17 Gm Powd.Pack) 17 gm PO DAILY PRN PRN Reason: Constipation Sodium Chloride (0.9 % Sodium Chloride Flush 3 Ml Syringe) 3 ml IVFLUSH QSHIFT [facility] Last Admin: 07/12/24 08:40 Dose: 3 ml Home Medications ?Medication ?Instructions ?Recorded ?Confirmed ?Last Taken ?Type glimepiride 2 mg tablet 2 mg PO DAILY 07/11/24 Unknown History metformin 500 mg tablet 500 mg PO DAILY 07/11/24 Unknown History metoprolol succinate 25 mg 25 mg PO DAILY 07/11/24 Unknown History tablet,extended release 24 hr rosuvastatin 10 mg tablet 10 mg PO DAILY 07/11/24 Unknown History Physical Exam 2 Vital Signs: Vital Signs: Last Vital Signs Temp 98.0 F 07/12/24 11:20 Pulse 72 07/12/24 11:20 Resp 20 07/12/24 11:20 BP 154/79 H 07/12/24 11:20 Pulse Ox 98 07/12/24 11:20 O2 Del Method Room Air 07/12/24 11:20 O2 Flow Rate 2 07/12/24 04:54 BMI result Body Mass Index 25.6 Neuro: Other: He is alert and awake with normal spontaneity and fluency of speech. He is able to name and repeat. Speech is moderately slurred. There is moderate left-sided tongue deviation. Otherwise face is symmetrical. Visual galarza are full. There was mild bilateral [id number] tremor. No definite drift is noted. Right plantars extensor in left is equivocal. Deep tendon reflexes are trace to absent. There was no neglect. Results Labs 07/12/24 05:41 07/12/24 05:41 Labs: Short CBC 07/12/24 Range/Units 05:41 WBC 6.3 (4.8-10.8) X10*3/uL Hgb 12.4 L (14.0-18.0) g/dl Hct 36.3 L (42.0-52.0) % Plt Count 200 (160-400) X10*3/uL BMP 07/12/24 05:41 Sodium 138 Potassium 3.9 Chloride 105 Carbon Dioxide 26 BUN 4 L Creatinine 0.69 Calcium 8.3 L Urine 07/11/24 Range/Units 12:18 Urine Color Yellow Urine Appearance Cloudy Urine pH 7.0 (5.0-9.0) Ur Specific [place] >= 1.030 H (1.005-1.025) Urine Protein Trace (Neg-Trace) mg/dL Urine Glucose (UA) >=1000 H (Negative) mg/dL Head CT did not reveal any obvious acute abnormality. Moderate chronic microvascular disease and mild cerebral atrophy was noted. CTA of brain and neck did not reveal any stenosis. EKG was okay. Microbiology Microbiology Results: Microbiology 07/11/24 Unknown Urine Catheterized - Straight Catheter Urine Culture - Preliminary Enterococcus/Streptococcus sp Assessment and Plan (1) Dysarthria: Status: Acute 73 years old man with moderate dysarthria and left-sided tongue deviation. I recommend noncontrast MRI of brain to rule out brainstem infarct. Procedures Date of Service Date of Service: 07/12/24
[2024-07-12 12:51] LABS: Glucose, Whole Blood 156 mg/dL (60-115)
--- NOTE | 2024-07-12 13:22 | MHC.CM.PN ---
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 HCP is his niece, Nick, was confirmed. He does not have home health services or use DME. Family to can transport home at [place], although DCP may be to [place] or [place]. CM to follow for DC needs.
--- NOTE | 2024-07-12 13:42 | HO.PM.IMPN ---
Subjective Subjective Date of Service: 07/12/24 Interval History: seen and examined this morning follow up for weakness, difficulty with speech, concern for stroke pt awake alert no other complaints Review of Systems Review of Systems: Yes all other systems are reviewed and are negative Constitutional Constitutional: Denies chills and Denies fever(s) Cardiovascular Cardiovascular: Denies chest pain Gastrointestinal Gastrointestinal: Denies abdominal pain Physical Exam Vital Signs: Vital Signs: Last Vital Signs Temp 98.0 F 07/12/24 11:20 Pulse 72 07/12/24 11:20 Resp 20 07/12/24 11:20 BP 154/79 H 07/12/24 11:20 Pulse Ox 98 07/12/24 11:20 O2 Del Method Room Air 07/12/24 11:20 O2 Flow Rate 2 07/12/24 04:54 BMI result Body Mass Index 25.6 Const: Other: Tearful General: comfortable, alert and awake Nutritional Appearance: average body habitus Orientation/consciousness: oriented to person and oriented to place Resp: Effort & Inspection: normal respiratory effort, able to speak in complete sentences, no respiratory distress and no use of accessory muscles Cardio: Rate: regular rate GI: Inspection: No distended Palpation (GI): Soft to palpation Neuro: Other: left side tongue deviation, strength equal b/l; able to move all 4 extremities General: oriented to person and oriented to place Objective Data Active Medications Acetaminophen (Acetaminophen 325 Mg Tablet) 975 mg PO Q6H PRN PRN Reason: Pain, Mild 1-3,fever,headache Calcium Carbonate (Calcium Carbonate 750 Mg Tab.Chew) 750 mg PO Q4H PRN PRN Reason: Heartburn Cefuroxime Axetil (Cefuroxime Axetil 250 Mg Tablet) 250 mg PO BID [facility] Last Admin: 07/12/24 08:40 Dose: 250 mg Documented By: PABLO Dextrose (Dextrose 50 % 25 Gm/50 Ml Syringe) 25 gm IVPUSH Q15M PRN; Protocol PRN Reason: per Hypoglycemia Standing Ord. Enoxaparin Sodium (Enoxaparin Sodium 40 Mg/0.4 Ml Syringe) 40 mg SUBCUT Q24H [facility] Last Admin: 07/12/24 00:43 Dose: 40 mg Documented By: GENESIS Glucose (Glucose Gel 15 Gm Gel..Gram.) 15 gm PO Q15M PRN; Protocol PRN Reason: per Hypoglycemia Standing Ord. Insulin Human Lispro (Insulin Lispro 100 Unit/Ml 3 Ml Vial) 0 unit SUBCUT QIDACHPhil [facility]; Protocol Last Admin: 07/12/24 11:10 Dose: Not Given Documented By: BOBBY Non-Admin Reason: NPO Magnesium Hydroxide (Milk Of Magnesia 30 Ml Oral.Susp) 30 ml PO DAILY PRN PRN Reason: Constipation Melatonin (Melatonin 3 Mg Tablet) 6 mg PO BEDTIME PRN PRN Reason: Insomnia Ondansetron HCl (Ondansetron Hcl 4 Mg/2 Ml Vial) 4 mg IVPUSH Q8H PRN PRN Reason: Nausea and Vomiting Oxycodone HCl (Oxycodone Hcl Immed Release 5 Mg Tablet) 5 mg PO Q6H PRN PRN Reason: Pain, Moderate(Pain Scale 4-6) Polyethylene Glycol (Polyethylene Glycol 3350 17 Gm Powd.Pack) 17 gm PO DAILY PRN PRN Reason: Constipation Sodium Chloride (0.9 % Sodium Chloride Flush 3 Ml Syringe) 3 ml IVFLUSH [facility] Last Admin: 07/12/24 08:40 Dose: 3 ml Documented By: PABLO Labs 07/12/24 05:41 07/12/24 05:41 Labs: Laboratory Results - last 24 hr 07/11/24 07/11/24 07/11/24 11:52 18:12 19:34 MCV MCH MCHC RDW Plt Count MPV Absolute Nucleated RBC Nucleated RBC % (auto) PT 15.1 H INR 1.3 H APTT 30.1 Anion Gap Estim Creat Clear Calc Estimated GFR POC Glucose 158 H Random Glucose Estimat Average Glucose 203 Hemoglobin A1c % 8.7 H Calcium Triglycerides 54 Cholesterol 92 LDL Cholesterol, Calc 39 HDL Cholesterol 43 07/12/24 07/12/24 07/12/24 05:41 07:25 11:07 MCV 80.5 MCH 27.5 MCHC 34.2 RDW 13.0 Plt Count 200 MPV 11.0 Absolute Nucleated RBC 0.000 Nucleated RBC % (auto) 0.0 PT INR APTT Anion Gap 11 L Estim Creat Clear Calc 82.2 Estimated GFR > 60 POC Glucose 152 H 156 H Random Glucose 149 H Estimat Average Glucose Hemoglobin A1c % Calcium 8.3 L Triglycerides Cholesterol LDL Cholesterol, Calc HDL Cholesterol Microbiology Microbiology Results: Microbiology 07/11/24 Unknown Urine Culture - Preliminary Urine Catheterized - Straight Catheter Enterococcus/Streptococcus sp Assessment and Plan (1) Right sided weakness: Status: Acute Plan Patient is a 78-year-old male with a past medical history significant for HTN and type 2 diabetes, who presented to the ED due to chronic right lower back pain radiating to the lower extremities and weakness. Reports right-sided weakness today in inability to ambulate. Dysarthria and right-sided weakness, concern for acute CVA head CT and CTA head and neck negative last known prior to deficits unknown MRI brain pending passed bedside swallow PT/OT eval - rec STR/acute reahb seen by neurology recommend brain MRI Continue aspirin, start Lipitor 40 mg lipid panel within normal limits stroke education Urinary tract infection UA positive, culture pending started on Ceftin in ED, continue pending culture Chronic back pain lumbar spine x-ray with no acute bony abnormalities, [id number] spondylosis relatively confined to L4-S1 bilateral hip/pelvis x-rays with no acute osseous abnormality. Mild to moderate degenerative change of the hips. Moderate to severe lower lumbar degenerative changes. HTN BP okay at this time resume metoprolol 25 mg daily when appropriate Type 2 diabetes hold home glimepiride and metformin sliding scale insulin diabetic diet A1C 8.7 Full code VTE prophylaxis: Lovenox me drec pending Patient with new onset dysarthria and right-sided weakness, likely CVA, complicated by urinary tract infection, requiring admission for at least 2 midnights stay for further neurologic evaluation and monitoring. Quality Stroke Does the patient have a stroke diagnosis?: Yes Reason for No Anti-thrombotic by Day Two: Drug treatment not indicated VTE Prior VTE?: No VTE Risk Level:: Medical - moderate - high VTE Device Contraindication: Treatment Not Indicated VTE Drug Contraindication: N/A - Med Ordered
[2024-07-12 17:07] LABS: Glucose, Whole Blood 247 mg/dL (60-115)
--- NOTE | 2024-07-12 17:44 | MHC.SL.SWA ---
Speech Pathologist Impression: Risk of Aspiration Due to: Neurological Condition Dysphasia Diet Status: Liquid Consistency and Strategies for Safe Swallow: Liquid Intake Recommendation: [place] Thick Liquid Intake Strategies: Small Sips No Straws Solid Food Consistency: Dietary Recommendations: Chopped/Advanced (NDD3) Additional Modifications to Solid Foods: Patient was able to do some independent self feeding during this evaluation, however will need initially direct supervision with assistance as needed at meals. Oral Medication Intake: Crushed with Puree Please contact the pharmacy regarding appropriate crushable or liquid drug formulations that are available whenever modified delivery is recommended. Compensatory Strategies and Precautions to be Taken for Safe Swallow: Sitting Upright (90 deg) No Straw Liquids from Cup Liquids from Spoon Small Bites and Sips Alternate Liquids/Solids Supervision While Eating and Drinking for Safe Swallow: Total Supervision (1:1) Foods to Avoid: Tough, difficult to chew solids, mixed consistencies. Swallowing Recommended Treatments: Compens. Strategy Educat. Recommendation for Speech: Inpatient Speech Therapy Speech Therapy through A Speech Therapy through Rehab Facility Comment: Patient presents with mild oral pharyngeal dysphagia, unilateral right oral facial weakness, moderate dysarthria. Recommend START diet of Chopped/Advanced with NECTAR THICK liquids, pills crushed in puree. Patient will require full supervision at meals with assistance at meals as needed, monitor for aspiration signs/aspiration precautions. Recommend follow up Speech/Language/Cognitive assessment, ? mild baseline cognitive issues. MD notified of recommendation by secure text, RN in person. DIGITAL RETOUCHER will continue to follow. Frequency/Duration: Date Range for Service Req: Timeline to reassess: Public Health Microbiologist Clinican/Clinical Fellow: No Supervisory Statement: I have reviewed and agree with the student/clinical fellow's documentation: N/A Speech Language Pathologist: Kriss Judge M.A., [facility]DIGITAL RETOUCHER
[2024-07-12 21:58] LABS: Glucose, Whole Blood 240 mg/dL (60-115)
[2024-07-12] MEDS: Atorvastatin Calcium 40 MG TABLET PO (22:34)
[2024-07-13] VITALS (7 sets, daily range): BP systolic 131–168; BP diastolic 74–82; PULSE 67–82; RESP 14–20; TEMP 36–37.5; O2SAT 96–100
[2024-07-13 07:56] LABS: Hematocrit 40.7 % (42.0-52.0); Hemoglobin 13.6 g/dl (14.0-18.0); Mean Corpuscular HGB Conc 33.4 g/dl (31.0-36.0); Mean Corpuscular Hemoglobin 27.1 pg (27.0-33.0); Mean Corpuscular Volume 81.2 fL (80.0-98.0); Mean Platelet Volume 10.9 fL (9.4-12.4); Platelet Count 207 X10*3/uL (160-400); Red Blood Count 5.01 X10*6/uL (4.60-5.80); Red Cell Distribution Width 13.2 % (11.0-16.0); White Blood Count 8.1 X10*3/uL (4.8-10.8)
[2024-07-13 08:10] LABS: Anion Gap 13 (12-20); Blood Urea Nitrogen 7 mg/dL (9-16); Calcium 8.9 mg/dL (8.4-10.2); Carbon Dioxide 26 mmol/L (22-29); Chloride 103 mmol/L (96-108); Creatinine Clr Calc Pharmacy 73.6; Estimated Glomerular Filt Rate > 60; Glucose Random 175 mg/dL (60-115); Potassium 3.8 mmol/L (3.3-5.1); Sodium 138 mmol/L (135-145)
[2024-07-13 08:16] LABS: Glucose, Whole Blood 160 mg/dL (60-115)
[2024-07-13] MEDS: Insulin Lispro 100 UNIT/ML 3 ML VIAL SUBCUT ×4 (08:42→21:21)
[2024-07-13] MEDS: cefuroxime axetiL 250 MG TABLET PO (08:43)
[2024-07-13] MEDS: Aspirin Enteric Coated 81 MG TABLET.DR PO (08:43)
[2024-07-13] MEDS: Metoprolol Succinate ER 25 MG TAB.ER.24H PO (08:43)
[2024-07-13] MEDS: 0.9 % Sodium Chloride Flush 3 ML SYRINGE IVFLUSH ×2 (08:47→18:00)
--- NOTE | 2024-07-13 10:00 | CA_ITS ---
Transthoracic Echocardiogram Patient (Last, First, Middle): Mason Macario, Gender: Male Date of : 1950 Age: 73 Procedure Date: 07/13/2024 Procedure Type: Transthoracic Echocardiogram Location: [facility] [place] Height: 162.56 cm Weight: 67.59 kg BSA: 1.73 m2 Heart Rate: bpm BP: 150 / 80 mmHg Jointer Operator: TO Referring MD: Ysabel PASCUAL In Home Aide: Don Christiansen MD Symptoms: stroke protocol Study Quality: Fair/Contrast ECG Rhythm: Sinus Conclusions: - 1. Mildly reduced LV ejection fraction 45-50% with impaired relaxation filling pattern 2. No significant abnormalities of cardiac valvular Dopplers 3. No gross pericardial effusion Findings Procedure Information Contrast agent, definity, is being given per protocol without apparent complications. Left Ventricle Normal left ventricular cavity size. There is normal left ventricular wall thickness. The left ventricular systolic function is mildly decreased. The visually estimated ejection fraction is between 45-50%. Spectral Doppler is indicative of an impaired relaxation filling pattern. E/E prime ratio is between 8 and 15 consistent with indeterminate filling pressures. There is no evidence of a thrombus in the left ventricle. Right Ventricle The right ventricle was not well visualized. Atria The left atrium is normal in size. Interatrial shunt cannot be excluded. The right atrium was not well visualized. Aortic Valve There is mild calcification of the aortic valve. There is no aortic valve stenosis. There is no aortic valve regurgitation. Mitral Valve There is mild anterior and posterior mitral leaflet thickening. There is trace mitral valve regurgitation. There is no mitral valve stenosis. Pulmonic Valve The pulmonic valve was not well visualized. Tricuspid Valve The tricuspid valve was not well visualized. Tricuspid regurgitation envelope is inadequate for calculation of right ventricular systolic pressure. Normal right atrial pressure. Great Vessels All visible segments of the aorta are normal in size. The pulmonary artery was not well visualized. There is no dilatation of the ascending aorta measuring 3.10 cm. Small plaque is seen in the sino tubular ridge. Venous The inferior vena cava is normal in size and collapses greater than 50% with inspiration. Pericardium/Pleural There is no evidence of pericardial effusion. Prior Study Comparison No prior study available for comparison. Measurements 2D Linear Measurements IVSd: 0.95 0.6-0.9/0.6-1.0 cm LVIDd: 4.53 3.9-5.3/4.2-5.9 cm LVIDd Index: 2.62 2.4-3.2/2.2-3.1 cm/m2 LVIDs: 2.94 2.0-3.6 cm LVPWd: 0.80 0.7-1.1 cm LA Diam: 2.20 2.7-3.8/3.0-4.0 cm LAIDs Index: 1.27 1.5-2.3 cm/m2 LV Mass: 161.76 67-162/88-224 g LV Mass Index: 93.51 43-95/49-115 g/m2 LVOT Diam: 2.00 3.0+(-)1.3 cm 2D Systolic Function EF 4C: 49.60 >55% EF 2C: 42.80 >55% EF BiP: 46.40 >55% Mitral Valve MV Pk E: 0.45 MV PK A: 0.71 MV Decel Time: 183.00 E/A: 0.60 E'Lateral: 4.90 E'Medial: 3.81 E/E' Med: 11.70 E/E' Lat: 9.10 PHT: 54.00 MVA PHT: 4.07 Decel [place]: 2.43 Aortic Valve AoV Pk Blade: 0.99 AoV Mn Blade: 0.70 AoV VTI: 0.19 AoV Pk Grad: 4.00 Aov Mn Grad: 2.00 QUENTIN Cont.VTI: 2.28 LVOT LVOT Pk Blade: 0.65 LVOT Mn Blade: 0.41 LVOT VTI: 0.14 LVOT Pk Grad: 2.00 LVOT Mn Grad: 1.00 LVOT Diam: 2.00 LVOT Area: 3.14 Diastolic Function MV Pk E: 0.45 MV Pk A: 0.71 E/A: 0.60 E'Medial: 3.81 E/E' Med: 11.70 E' Laterial: 4.90 E/E' Lat: 9.10 Right Ventricle TAPSE (mm): 18.90 TVS' Blade: 10.60 Tricuspid Valve RA Press: 3.00 Great Vessels Aorta Sinus of Valsalva: 3.53 2.0-3.5 cm Ao Asc: 3.10 2.1-3.4 cm Updated in Other Vendor System with Status of Final Don Christiansen MD electronically signed on 07/13/2024 4:47:25 PM with status of Final
[2024-07-13 10:59] LABS: Glucose, Whole Blood 272 mg/dL (60-115)
[2024-07-13 12:47] LABS: Glucose, Whole Blood 158 mg/dL (60-115)
--- NOTE | 2024-07-13 14:44 | HO.PM.IMPN ---
Subjective Subjective Date of Service: 07/13/24 Interval History: Seen and examined this morning Follow-up for speech change, weakness. MRI positive for acute stroke History obtained with the assistance of a house shorer no overnight events Review of Systems Review of Systems: Yes all other systems are reviewed and are negative Constitutional Constitutional: Denies chills and Denies fever(s) Physical Exam Vital Signs: Vital Signs: Last Vital Signs Temp 96.8 F 07/13/24 11:09 Pulse 82 07/13/24 11:09 Resp 18 07/13/24 11:09 BP 131/79 07/13/24 11:09 Pulse Ox 96 07/13/24 11:09 O2 Del Method Room Air 07/13/24 11:09 O2 Flow Rate 2 07/12/24 04:54 BMI result Body Mass Index 25.6 Const: General: comfortable, alert and awake Nutritional Appearance: average body habitus Orientation/consciousness: oriented to person and oriented to place Resp: Effort & Inspection: normal respiratory effort, able to speak in complete sentences, no respiratory distress and no use of accessory muscles Cardio: Rate: regular rate GI: Inspection: No distended Palpation (GI): Soft to palpation Neuro: Other: left side tongue deviation, strength equal b/l; able to move all 4 extremities General: oriented to person and oriented to place Objective Data Active Medications Acetaminophen (Acetaminophen 325 Mg Tablet) 975 mg PO Q6H PRN PRN Reason: Pain, Mild 1-3,fever,headache Aspirin (Aspirin Enteric Coated 81 Mg Tablet.) 81 mg PO DAILY COUNTS INCLUDE 234 BEDS AT THE [facility] Last Admin: 07/13/24 08:43 Dose: 81 mg Documented By: CHAIM Atorvastatin Calcium (Atorvastatin Calcium 40 Mg Tablet) 40 mg PO BEDTIME COUNTS INCLUDE 234 BEDS AT THE [facility] Last Admin: 07/12/24 22:34 Dose: 40 mg Documented By: MARCELLA Calcium Carbonate (Calcium Carbonate 750 Mg Tab.Chew) 750 mg PO Q4H PRN PRN Reason: Heartburn Dextrose (Dextrose 50 % 25 Gm/50 Ml Syringe) 25 gm IVPUSH Q15M PRN; Protocol PRN Reason: per Hypoglycemia Standing Ord. Enoxaparin Sodium (Enoxaparin Sodium 40 Mg/0.4 Ml Syringe) 40 mg SUBCUT Q24H COUNTS INCLUDE 234 BEDS AT THE [facility] Last Admin: 07/12/24 22:32 Dose: 40 mg Documented By: MARCELLA Glucose (Glucose Gel 15 Gm Gel..Gram.) 15 gm PO Q15M PRN; Protocol PRN Reason: per Hypoglycemia Standing Ord. Insulin Human Lispro (Insulin Lispro 100 Unit/Ml 3 Ml Vial) 0 unit SUBCUT QIDACHS COUNTS INCLUDE 234 BEDS AT THE [facility]; Protocol Last Admin: 07/13/24 12:27 Dose: 6 unit Documented By: CATRACHO Levofloxacin (Levofloxacin 250 Mg Tablet) 250 mg PO Q24H COUNTS INCLUDE 234 BEDS AT THE [facility] Magnesium Hydroxide (Milk Of Magnesia 30 Ml Oral.Susp) 30 ml PO DAILY PRN PRN Reason: Constipation Melatonin (Melatonin 3 Mg Tablet) 6 mg PO BEDTIME PRN PRN Reason: Insomnia Metoprolol Succinate (Metoprolol Succinate Er 25 Mg Tab.Er.24h) 25 mg PO DAILY COUNTS INCLUDE 234 BEDS AT THE [facility]; Protocol Last Admin: 07/13/24 08:43 Dose: 25 mg Documented By: CHAIM Ondansetron HCl (Ondansetron Hcl 4 Mg/2 Ml Vial) 4 mg IVPUSH Q8H PRN PRN Reason: Nausea and Vomiting Oxycodone HCl (Oxycodone Hcl Immed Release 5 Mg Tablet) 5 mg PO Q6H PRN PRN Reason: Pain, Moderate(Pain Scale 4-6) Polyethylene Glycol (Polyethylene Glycol 3350 17 Gm Powd.Pack) 17 gm PO DAILY PRN PRN Reason: Constipation Sodium Chloride (0.9 % Sodium Chloride Flush 3 Ml Syringe) 3 ml IVFLUSH QSHIFT COUNTS INCLUDE 234 BEDS AT THE [facility] Last Admin: 07/13/24 08:47 Dose: 3 ml Documented By: CHAIM Labs 07/13/24 07:06 07/13/24 07:06 Labs: Laboratory Results - last 24 hr 07/11/24 07/12/24 07/12/24 19:05 16:50 21:24 MCV MCH MCHC RDW Plt Count MPV Absolute Nucleated RBC Nucleated RBC % (auto) Anion Gap Estim Creat Clear Calc Estimated GFR POC Glucose 158 H 247 H 240 H Random Glucose Calcium 07/13/24 07/13/24 07/13/24 06:55 07:06 10:43 MCV 81.2 MCH 27.1 MCHC 33.4 RDW 13.2 Plt Count 207 MPV 10.9 Absolute Nucleated RBC 0.000 Nucleated RBC % (auto) 0.0 Anion Gap 13 Estim Creat Clear Calc 73.6 Estimated GFR > 60 POC Glucose 160 H 272 H Random Glucose 175 H Calcium 8.9 D Microbiology Microbiology Results: Microbiology 07/11/24 Unknown Urine Culture - Final Urine Catheterized - Straight Catheter Enterococcus faecalis Assessment and Plan (1) Acute stroke due to ischemia: Status: Acute Plan Patient is a 78-year-old male with a past medical history significant for HTN and type 2 diabetes, who presented to the ED due to chronic right lower back pain radiating to the lower extremities and weakness. Reports right-sided weakness today in inability to ambulate. Dysarthria and right-sided weakness, concern for acute CVA head CT and CTA head and neck negative last known prior to deficits unknown MRI + for small acute infarcts of the left coley radiata/basal ganglia and anteromedial left temporal lobe speech therapy rec NDD3 diet , with supervision PT/OT eval - rec STR/acute rehab seen by neurology Continue aspirin, start Lipitor 40 mg lipid panel within normal limits stroke education echo pending Urinary tract infection UCx growing Enterococcus faecalis will change antibiotics to levofloxacin 07/13 Chronic back pain lumbar spine x-ray with no acute bony abnormalities, [id number] spondylosis relatively confined to L4-S1 bilateral hip/pelvis x-rays with no acute osseous abnormality. Mild to moderate degenerative change of the hips. Moderate to severe lower lumbar degenerative changes. HTN BP okay at this time resumed metoprolol Type 2 diabetes hold home glimepiride and metformin sliding scale insulin diabetic diet A1C 8.7 Full code VTE prophylaxis: Jaskaran attempted to call emergency contact to update - no answer dispo - STR vs acute rehab Patient with new onset dysarthria and right-sided weakness, likely CVA, complicated by urinary tract infection, requiring admission for at least 2 midnights stay for further neurologic evaluation and monitoring. Quality Stroke Does the patient have a stroke diagnosis?: Yes Reason for No Anti-thrombotic by Day Two: Drug treatment not indicated VTE Prior VTE?: No VTE Risk Level:: Medical - moderate - high VTE Device Contraindication: Treatment Not Indicated VTE Drug Contraindication: N/A - Med Ordered
--- NOTE | 2024-07-13 14:56 | MHC.SL.SWA ---
Speech Pathologist Impression: Risk of Aspiration, Oropharyngeal Dysphagia Risk of Aspiration Due to: Neurological Condition Dysphasia Diet Status: No Change Liquid Consistency and Strategies for Safe Swallow: Liquid Intake Recommendation: [place] Thick Liquid Intake Strategies: Small Sips No Straws Solid Food Consistency: Dietary Recommendations: Chopped/Advanced (NDD3) Additional Modifications to Solid Foods: Patient was able to do some independent self feeding during this evaluation, however will need initially direct supervision with assistance as needed at meals. Oral Medication Intake: Crushed with Puree Please contact the pharmacy regarding appropriate crushable or liquid drug formulations that are available whenever modified delivery is recommended. Compensatory Strategies and Precautions to be Taken for Safe Swallow: Sitting Upright (90 deg) No Straw Small Bites and Sips Alternate Liquids/Solids Rate of Ingestion Change Avoid Specific Foods Supervision While Eating and Drinking for Safe Swallow: Total Assistance (1:1) Foods to Avoid: Tough, difficult to chew solids, mixed consistencies. Swallowing Recommended Treatments: Compens. Strategy Educat. Recommendation for Speech: Inpatient Speech Therapy Comment: Patient presents with mild oral pharyngeal dysphagia, unilateral right oral facial weakness, moderate dysarthria. Recommend diet of Chopped/Advanced with NECTAR THICK liquids, pills crushed in puree. Patient will require full supervision at meals with assistance at meals as needed, monitor for aspiration signs/aspiration precautions. Recommend follow up Speech/Language/Cognitive assessment, ? mild baseline cognitive issues. CASINO GAMING WORKER will continue to follow. Frequency/Duration: Date Range for Service Req: Timeline to reassess: Nursing Education Consultant Clinican/Clinical Fellow: No Supervisory Statement: I have reviewed and agree with the student/clinical fellow's documentation: N/A Speech Language Pathologist: Dixie Johnson M.A., CCC-CASINO GAMING WORKER
[2024-07-13 16:11] LABS: Prothrombin Time Whole Bld POC 15.9 sec (11.1-13.5); ~PT, ~INR - Anti Coag Clinic 1.3 (0.9-1.1)
--- NOTE | 2024-07-13 16:19 | MHC.CM.PN ---
Addendum entered by Conchis Genao 07/13/24 16:21: CORRECTION: RHONA [phone] Original Note: CM MET WITH PT AND NIECE THEY ARE AWARE PTS INSURANCE WILL NEED TO BE CHANGED TO GO TO REHAB HERE REFERRAL S[place] [facility] [place], THEY WILL CONTACT HELDER MELGOZA [phone]
--- NOTE | 2024-07-13 18:01 | PC.NURSE ---
this nurse called pharmacy approx [phone] on 07/13 , requested levaquin dose, not delivered by pharm as of 1800
[2024-07-13] MEDS: Atorvastatin Calcium 40 MG TABLET PO (20:54)
[2024-07-14] VITALS (7 sets, daily range): BP systolic 137–152; BP diastolic 73–82; PULSE 68–83; RESP 14–19; TEMP 36.1–37.1; O2SAT 94–96
[2024-07-14] MEDS: Enoxaparin Sodium 40 MG/0.4 ML SYRINGE SUBCUT (00:30)
[2024-07-14] MEDS: 0.9 % Sodium Chloride Flush 3 ML SYRINGE IVFLUSH ×4 (00:31→21:19)
[2024-07-14 02:01] LABS: Glucose, Whole Blood 215 mg/dL (60-115)
[2024-07-14 02:02] LABS: Glucose, Whole Blood 163 mg/dL (60-115)
[2024-07-14 08:03] LABS: Hematocrit 41.3 % (42.0-52.0); Hemoglobin 13.7 g/dl (14.0-18.0); Mean Corpuscular HGB Conc 33.2 g/dl (31.0-36.0); Mean Corpuscular Hemoglobin 27.1 pg (27.0-33.0); Mean Corpuscular Volume 81.6 fL (80.0-98.0); Mean Platelet Volume 11.1 fL (9.4-12.4); Platelet Count 205 X10*3/uL (160-400); Red Blood Count 5.06 X10*6/uL (4.60-5.80); Red Cell Distribution Width 13.4 % (11.0-16.0); White Blood Count 6.2 X10*3/uL (4.8-10.8)
[2024-07-14 08:14] LABS: Anion Gap 11 (12-20); Blood Urea Nitrogen 4 mg/dL (9-16); Calcium 8.7 mg/dL (8.4-10.2); Carbon Dioxide 29 mmol/L (22-29); Chloride 102 mmol/L (96-108); Creatinine Clr Calc Pharmacy 74.6; Estimated Glomerular Filt Rate > 60; Glucose Random 164 mg/dL (60-115); Potassium 3.8 mmol/L (3.3-5.1); Sodium 138 mmol/L (135-145)
[2024-07-14 08:36] LABS: Glucose, Whole Blood 170 mg/dL (60-115)
[2024-07-14] MEDS: Metoprolol Succinate ER 25 MG TAB.ER.24H PO (09:52)
[2024-07-14] MEDS: Aspirin Enteric Coated 81 MG TABLET.DR PO (09:52)
[2024-07-14] MEDS: Insulin Lispro 100 UNIT/ML 3 ML VIAL SUBCUT ×4 (09:53→21:19)
[2024-07-14 11:39] LABS: Glucose, Whole Blood 218 mg/dL (60-115)
--- NOTE | 2024-07-14 11:41 | HO.PM.IMPN ---
Subjective Subjective Date of Service: 07/14/24 Interval History: Seen and examined this morning Follow-up for speech change, weakness. MRI positive for acute stroke no overnight events Review of Systems Review of Systems: Yes all other systems are reviewed and are negative Constitutional Constitutional: Denies chills and Denies fever(s) Physical Exam Vital Signs: Vital Signs: Last Vital Signs Temp 96.9 F 07/14/24 07:24 Pulse 69 07/14/24 11:28 Resp 18 07/14/24 07:24 BP 152/75 H 07/14/24 11:28 Pulse Ox 96 07/14/24 11:28 O2 Del Method Room Air 07/14/24 07:24 O2 Flow Rate 2 07/12/24 04:54 BMI result Body Mass Index 25.6 Appearing in no acute distress lung sounds are clear to auscultation heart regular rate rhythm, clear S1, S2 positive bowel sounds, abdomen is soft, nontender neuro patient is alert, mild right sided weakness with some mild thick speech Objective Data Active Medications Acetaminophen (Acetaminophen 325 Mg Tablet) 975 mg PO Q6H PRN PRN Reason: Pain, Mild 1-3,fever,headache Aspirin (Aspirin Enteric Coated 81 Mg Tablet.) 81 mg PO DAILY [facility] Last Admin: 07/14/24 09:52 Dose: 81 mg Documented By: LEATHA Atorvastatin Calcium (Atorvastatin Calcium 40 Mg Tablet) 40 mg PO BEDTIME [facility] Last Admin: 07/13/24 20:54 Dose: 40 mg Documented By: MARCELLA Calcium Carbonate (Calcium Carbonate 750 Mg Tab.Chew) 750 mg PO Q4H PRN PRN Reason: Heartburn Dextrose (Dextrose 50 % 25 Gm/50 Ml Syringe) 25 gm IVPUSH Q15M PRN; Protocol PRN Reason: per Hypoglycemia Standing Ord. Enoxaparin Sodium (Enoxaparin Sodium 40 Mg/0.4 Ml Syringe) 40 mg SUBCUT Q24H [facility] Last Admin: 07/14/24 00:30 Dose: 40 mg Documented By: KITTY Glucose (Glucose Gel 15 Gm Gel..Gram.) 15 gm PO Q15M PRN; Protocol PRN Reason: per Hypoglycemia Standing Ord. Insulin Human Lispro (Insulin Lispro 100 Unit/Ml 3 Ml Vial) 0 unit SUBCUT QIDACHS [facility]; Protocol Last Admin: 07/14/24 09:53 Dose: 2 unit Documented By: LEATHA Levofloxacin (Levofloxacin 250 Mg Tablet) 250 mg PO Q24H [facility] Last Admin: 07/13/24 18:01 Dose: Not Given Documented By: CATRACHO Non-Admin Reason: Med Not Available Magnesium Hydroxide (Milk Of Magnesia 30 Ml Oral.Susp) 30 ml PO DAILY PRN PRN Reason: Constipation Melatonin (Melatonin 3 Mg Tablet) 6 mg PO BEDTIME PRN PRN Reason: Insomnia Metoprolol Succinate (Metoprolol Succinate Er 25 Mg Tab.Er.24h) 25 mg PO DAILY [facility]; Protocol Last Admin: 07/14/24 09:52 Dose: 25 mg Documented By: LEATHA Ondansetron HCl (Ondansetron Hcl 4 Mg/2 Ml Vial) 4 mg IVPUSH Q8H PRN PRN Reason: Nausea and Vomiting Oxycodone HCl (Oxycodone Hcl Immed Release 5 Mg Tablet) 5 mg PO Q6H PRN PRN Reason: Pain, Moderate(Pain Scale 4-6) Polyethylene Glycol (Polyethylene Glycol 3350 17 Gm Powd.Pack) 17 gm PO DAILY PRN PRN Reason: Constipation Sodium Chloride (0.9 % Sodium Chloride Flush 3 Ml Syringe) 3 ml IVFLUSH QSHIFT [facility] Last Admin: 07/14/24 09:53 Dose: 3 ml Documented By: LEATHA Labs 07/14/24 07:32 07/14/24 07:32 Labs: Laboratory Results - last 24 hr 07/11/24 07/13/24 07/13/24 19:05 16:32 21:16 MCV MCH MCHC RDW Plt Count MPV Absolute Nucleated RBC Nucleated RBC % (auto) Whole Blood PT 15.9 H Whole Blood INR 1.3 H Anion Gap Estim Creat Clear Calc Estimated GFR POC Glucose 158 H 215 H 163 H Random Glucose Calcium 07/14/24 07/14/24 07/14/24 07:19 07:32 11:27 MCV 81.6 MCH 27.1 MCHC 33.2 RDW 13.4 Plt Count 205 MPV 11.1 Absolute Nucleated RBC 0.000 Nucleated RBC % (auto) 0.0 Whole Blood PT Whole Blood INR Anion Gap 11 L Estim Creat Clear Calc 74.6 Estimated GFR > 60 POC Glucose 170 H 218 H Random Glucose 164 H Calcium 8.7 Assessment and Plan (1) Acute stroke due to ischemia: Status: Acute Plan Patient is a 78-year-old male with a past medical history significant for HTN and type 2 diabetes, who presented to the ED due to chronic right lower back pain radiating to the lower extremities and weakness. Reports right-sided weakness today in inability to ambulate. Acute CVA Dysarthria and right-sided weakness head CT and CTA head and neck negative MRI + for small acute infarcts of the left coley radiata/basal ganglia and anteromedial left temporal lobe speech therapy rec NDD3 diet , with supervision PT/OT eval - rec STR/acute rehab seen by neurology Continue aspirin, Lipitor 40 mg lipid panel within normal limits stroke education echo EF 45-50%, no significant valvular abnormalities Enterococcus faecalis UTI Continue Levaquin Chronic back pain lumbar spine x-ray with no acute bony abnormalities, [id number] spondylosis relatively confined to L4-S1, Moderate to severe lower lumbar degenerative changes. HTN BP okay at this time Continue metoprolol Type 2 diabetes hold home glimepiride and metformin sliding scale insulin diabetic diet A1C 8.7 Full code VTE prophylaxis: Lovenox dispo - STR vs acute rehab Quality Stroke Does the patient have a stroke diagnosis?: Yes Reason for No Anti-thrombotic by Day Two: Drug treatment not indicated VTE Prior VTE?: No VTE Risk Level:: Medical - moderate - high VTE Device Contraindication: Treatment Not Indicated VTE Drug Contraindication: N/A - Med Ordered
--- NOTE | 2024-07-14 12:20 | MHC.CM.PN ---
PT is recommending Acute Rehab; all 3 area Acutes have denied. A broad SNF search has been initiated and CM will follow.
[2024-07-14 17:37] LABS: Glucose, Whole Blood 153 mg/dL (60-115)
[2024-07-14] MEDS: levoFLOXacin 250 MG TABLET PO (17:50)
[2024-07-14] MEDS: Atorvastatin Calcium 40 MG TABLET PO (21:19)
[2024-07-14 21:47] LABS: Glucose, Whole Blood 255 mg/dL (60-115)
[2024-07-15] MEDS: Enoxaparin Sodium 40 MG/0.4 ML SYRINGE SUBCUT (00:59)
[2024-07-15 03:30] VITALS: BP 128/78; PULSE 72; RESP 16; TEMP 36; O2SAT 95
[2024-07-15 07:19] VITALS: BP 140/76; PULSE 71; RESP 18; TEMP 36.2; O2SAT 96
[2024-07-15 07:39] LABS: Glucose, Whole Blood 150 mg/dL (60-115)
[2024-07-15] MEDS: Metoprolol Succinate ER 25 MG TAB.ER.24H PO (08:16)
[2024-07-15] MEDS: Aspirin Enteric Coated 81 MG TABLET.DR PO (08:16)
[2024-07-15] MEDS: 0.9 % Sodium Chloride Flush 3 ML SYRINGE IVFLUSH ×3 (08:16→20:45)
--- NOTE | 2024-07-15 10:29 | P.PNIM_ITS ---
Subjective Subjective Date of Service: 07/15/24 Interval History: Seen and examined this morning Follow-up for speech change, weakness. MRI positive for acute stroke no overnight events Review of Systems Review of Systems: Yes all other systems are reviewed and are negative Constitutional Constitutional: Denies chills and Denies fever(s) Physical Exam 2 Vital Signs: Vital Signs: Last Vital Signs Temp 97.2 F 07/15/24 07:19 Pulse 71 07/15/24 07:19 Resp 18 07/15/24 07:19 BP 140/76 H 07/15/24 07:19 Pulse Ox 96 07/15/24 07:19 O2 Del Method Room Air 07/15/24 07:19 O2 Flow Rate 2 07/12/24 04:54 BMI result Body Mass Index 25.6 Objective Data Active Medications Acetaminophen (Acetaminophen 325 Mg Tablet) 975 mg PO Q6H PRN PRN Reason: Pain, Mild 1-3,fever,headache Aspirin (Aspirin Enteric Coated 81 Mg Tablet.) 81 mg PO DAILY [facility] Last Admin: 07/15/24 08:16 Dose: 81 mg Documented By: LEATHA Atorvastatin Calcium (Atorvastatin Calcium 40 Mg Tablet) 40 mg PO BEDTIME [facility] Last Admin: 07/14/24 21:19 Dose: 40 mg Documented By: JOSELINE Calcium Carbonate (Calcium Carbonate 750 Mg Tab.Chew) 750 mg PO Q4H PRN PRN Reason: Heartburn Dextrose (Dextrose 50 % 25 Gm/50 Ml Syringe) 25 gm IVPUSH Q15M PRN; Protocol PRN Reason: per Hypoglycemia Standing Ord. Enoxaparin Sodium (Enoxaparin Sodium 40 Mg/0.4 Ml Syringe) 40 mg SUBCUT Q24H [facility] Last Admin: 07/15/24 00:59 Dose: 40 mg Documented By: JOSELINE Glucose (Glucose Gel 15 Gm Gel..Gram.) 15 gm PO Q15M PRN; Protocol PRN Reason: per Hypoglycemia Standing Ord. Insulin Human Lispro (Insulin Lispro 100 Unit/Ml 3 Ml Vial) 0 unit SUBCUT QIDACHS [facility]; Protocol Last Admin: 07/15/24 07:41 Dose: Not Given Documented By: LEATHA Non-Admin Reason: No Insulin Coverage Levofloxacin (Levofloxacin 250 Mg Tablet) 250 mg PO Q24H [facility] Last Admin: 07/14/24 17:50 Dose: 250 mg Documented By: LEATHA Magnesium Hydroxide (Milk Of Magnesia 30 Ml Oral.Susp) 30 ml PO DAILY PRN PRN Reason: Constipation Melatonin (Melatonin 3 Mg Tablet) 6 mg PO BEDTIME PRN PRN Reason: Insomnia Metoprolol Succinate (Metoprolol Succinate Er 25 Mg Tab.Er.24h) 25 mg PO DAILY [facility]; Protocol Last Admin: 07/15/24 08:16 Dose: 25 mg Documented By: LEATHA Ondansetron HCl (Ondansetron Hcl 4 Mg/2 Ml Vial) 4 mg IVPUSH Q8H PRN PRN Reason: Nausea and Vomiting Oxycodone HCl (Oxycodone Hcl Immed Release 5 Mg Tablet) 5 mg PO Q6H PRN PRN Reason: Pain, Moderate(Pain Scale 4-6) Polyethylene Glycol (Polyethylene Glycol 3350 17 Gm Powd.Pack) 17 gm PO DAILY PRN PRN Reason: Constipation Sodium Chloride (0.9 % Sodium Chloride Flush 3 Ml Syringe) 3 ml IVFLUSH QSHIFT [facility] Last Admin: 07/15/24 08:16 Dose: 3 ml Documented By: LEATHA Labs 07/14/24 07:32 07/14/24 07:32 Labs: Laboratory Results - last 24 hr 07/14/24 07/14/24 07/14/24 11:27 16:29 20:18 POC Glucose 218 H 153 H 255 H 07/15/24 07:21 POC Glucose 150 H Assessment and Plan (1) Acute stroke due to ischemia: Status: Acute Plan 78-year-old male with a past medical history significant for HTN and type 2 diabetes, who presented to the ED due to chronic right lower back pain radiating to the lower extremities and weakness. Reports right-sided weakness today in inability to ambulate. Acute CVA Dysarthria and right-sided weakness head CT and CTA head and neck negative MRI + for small acute infarcts of the left coley radiata/basal ganglia and anteromedial left temporal lobe speech therapy rec NDD3 diet , with supervision PT/OT eval - rec STR/acute rehab seen by neurology Continue aspirin, Lipitor 40 mg lipid panel within normal limits stroke education echo EF 45-50%, no significant valvular abnormalities Enterococcus faecalis UTI Continue Levaquin Chronic back pain lumbar spine x-ray with no acute bony abnormalities, [id number] spondylosis relatively confined to L4-S1, Moderate to severe lower lumbar degenerative changes. HTN BP okay at this time Continue metoprolol Type 2 diabetes hold home glimepiride and metformin sliding scale insulin diabetic diet A1C 8.7 Full code VTE prophylaxis: Lovenox dispo - STR vs acute rehab Quality Stroke Does the patient have a stroke diagnosis?: Yes Reason for No Anti-thrombotic by Day Two: Drug treatment not indicated VTE Prior VTE?: No VTE Risk Level:: Medical - moderate - high VTE Device Contraindication: Treatment Not Indicated VTE Drug Contraindication: N/A - Med Ordered
[2024-07-15 11:37] VITALS: BP 150/75; PULSE 71; RESP 19; TEMP 36.4; O2SAT 97
[2024-07-15 11:38] LABS: Glucose, Whole Blood 279 mg/dL (60-115)
[2024-07-15] MEDS: Milk of Magnesia 30 ML ORAL.SUSP PO (12:12)
[2024-07-15] MEDS: Insulin Lispro 100 UNIT/ML 3 ML VIAL SUBCUT ×3 (12:14→20:45)
[2024-07-15 15:22] VITALS: BP 140/67; PULSE 84; RESP 17; TEMP 36.5; O2SAT 96
[2024-07-15] MEDS: levoFLOXacin 250 MG TABLET PO (16:29)
[2024-07-15 20:00] VITALS: BP 143/68; PULSE 80; RESP 18; TEMP 37.1; O2SAT 97
[2024-07-15] MEDS: Atorvastatin Calcium 40 MG TABLET PO (20:45)
[2024-07-15] MEDS: Melatonin 3 MG TABLET 6 MG PO (20:45)
[2024-07-15 21:05] LABS: Glucose, Whole Blood 286 mg/dL (60-115)
[2024-07-15 21:06] LABS: Glucose, Whole Blood 212 mg/dL (60-115)
[2024-07-15 23:38] VITALS: BP 109/59; PULSE 75; RESP 18; TEMP 36.7; O2SAT 98
[2024-07-16] VITALS (7 sets, daily range): BP systolic 118–147; BP diastolic 63–71; PULSE 71–86; RESP 17–20; TEMP 36.4–37.2; O2SAT 94–98
[2024-07-16] MEDS: Enoxaparin Sodium 40 MG/0.4 ML SYRINGE SUBCUT (00:08)
[2024-07-16 08:12] LABS: Glucose, Whole Blood 169 mg/dL (60-115)
[2024-07-16] MEDS: Insulin Lispro 100 UNIT/ML 3 ML VIAL SUBCUT ×4 (08:34→21:38)
[2024-07-16] MEDS: Aspirin Enteric Coated 81 MG TABLET.DR PO (08:34)
[2024-07-16] MEDS: Metoprolol Succinate ER 25 MG TAB.ER.24H PO (08:34)
[2024-07-16] MEDS: 0.9 % Sodium Chloride Flush 3 ML SYRINGE IVFLUSH ×3 (08:36→21:38)
[2024-07-16 11:48] LABS: Glucose, Whole Blood 234 mg/dL (60-115)
--- NOTE | 2024-07-16 12:12 | P.PNIM_ITS ---
Subjective Subjective Date of Service: 07/16/24 Interval History: Seen and examined this morning Follow-up for speech change, weakness. MRI positive for acute stroke no overnight events Review of Systems Review of Systems: Yes all other systems are reviewed and are negative Constitutional Constitutional: Denies chills and Denies fever(s) Physical Exam 2 Vital Signs: Vital Signs: Last Vital Signs Temp 98.0 F 07/16/24 11:44 Pulse 75 07/16/24 11:44 Resp 17 07/16/24 11:44 BP 139/71 07/16/24 11:44 Pulse Ox 96 07/16/24 11:44 O2 Del Method Room Air 07/16/24 11:44 O2 Flow Rate 2 07/12/24 04:54 BMI result Body Mass Index 25.6 Objective Data Active Medications Acetaminophen (Acetaminophen 325 Mg Tablet) 975 mg PO Q6H PRN PRN Reason: Pain, Mild 1-3,fever,headache Aspirin (Aspirin Enteric Coated 81 Mg Tablet.) 81 mg PO DAILY [facility] Last Admin: 07/16/24 08:34 Dose: 81 mg Documented By: LEATHA Atorvastatin Calcium (Atorvastatin Calcium 40 Mg Tablet) 40 mg PO BEDTIME [facility] Last Admin: 07/15/24 20:45 Dose: 40 mg Documented By: JOSELINE Calcium Carbonate (Calcium Carbonate 750 Mg Tab.Chew) 750 mg PO Q4H PRN PRN Reason: Heartburn Dextrose (Dextrose 50 % 25 Gm/50 Ml Syringe) 25 gm IVPUSH Q15M PRN; Protocol PRN Reason: per Hypoglycemia Standing Ord. Enoxaparin Sodium (Enoxaparin Sodium 40 Mg/0.4 Ml Syringe) 40 mg SUBCUT Q24H [facility] Last Admin: 07/16/24 00:08 Dose: 40 mg Documented By: JOSELINE Glucose (Glucose Gel 15 Gm Gel..Gram.) 15 gm PO Q15M PRN; Protocol PRN Reason: per Hypoglycemia Standing Ord. Insulin Human Lispro (Insulin Lispro 100 Unit/Ml 3 Ml Vial) 0 unit SUBCUT QIDACHS [facility]; Protocol Last Admin: 07/16/24 11:51 Dose: 4 unit Documented By: LEATHA Levofloxacin (Levofloxacin 250 Mg Tablet) 250 mg PO Q24H [facility] Last Admin: 07/15/24 16:29 Dose: 250 mg Documented By: LEATHA Magnesium Hydroxide (Milk Of Magnesia 30 Ml Oral.Susp) 30 ml PO DAILY PRN PRN Reason: Constipation Last Admin: 07/15/24 12:12 Dose: 30 ml Documented By: LEATHA Melatonin (Melatonin 3 Mg Tablet) 6 mg PO BEDTIME PRN PRN Reason: Insomnia Last Admin: 07/15/24 20:45 Dose: 6 mg Documented By: JOSELINE Metoprolol Succinate (Metoprolol Succinate Er 25 Mg Tab.Er.24h) 25 mg PO DAILY [facility]; Protocol Last Admin: 07/16/24 08:34 Dose: 25 mg Documented By: LEATHA Ondansetron HCl (Ondansetron Hcl 4 Mg/2 Ml Vial) 4 mg IVPUSH Q8H PRN PRN Reason: Nausea and Vomiting Oxycodone HCl (Oxycodone Hcl Immed Release 5 Mg Tablet) 5 mg PO Q6H PRN PRN Reason: Pain, Moderate(Pain Scale 4-6) Polyethylene Glycol (Polyethylene Glycol 3350 17 Gm Powd.Pack) 17 gm PO DAILY PRN PRN Reason: Constipation Sodium Chloride (0.9 % Sodium Chloride Flush 3 Ml Syringe) 3 ml IVFLUSH QSHIFT [facility] Last Admin: 07/16/24 08:36 Dose: 3 ml Documented By: LEATHA Labs 07/14/24 07:32 07/14/24 07:32 Labs: Laboratory Results - last 24 hr 07/15/24 07/15/24 07/16/24 16:02 20:12 06:59 POC Glucose 286 H 212 H 169 H 07/16/24 11:17 POC Glucose 234 H Assessment and Plan (1) Acute stroke due to ischemia: Status: Acute Plan 78-year-old male with a past medical history significant for HTN and type 2 diabetes, who presented to the ED due to chronic right lower back pain radiating to the lower extremities and weakness. Reports right-sided weakness today in inability to ambulate. Acute CVA Dysarthria and right-sided weakness head CT and CTA head and neck negative MRI + for small acute infarcts of the left coley radiata/basal ganglia and anteromedial left temporal lobe speech therapy rec NDD3 diet , with supervision PT/OT eval - rec STR/acute rehab seen by neurology Continue aspirin, Lipitor 40 mg lipid panel within normal limits stroke education echo EF 45-50%, no significant valvular abnormalities Enterococcus faecalis UTI Continue Levaquin Chronic back pain lumbar spine x-ray with no acute bony abnormalities, [id number] spondylosis relatively confined to L4-S1, Moderate to severe lower lumbar degenerative changes. HTN BP okay at this time Continue metoprolol Type 2 diabetes hold home glimepiride and metformin sliding scale insulin diabetic diet A1C 8.7 DISPO plan for STR, [employer] application in process Full code VTE prophylaxis: Lovenox dispo - STR vs acute rehab Quality Stroke Does the patient have a stroke diagnosis?: Yes Reason for No Anti-thrombotic by Day Two: Drug treatment not indicated VTE Prior VTE?: No VTE Risk Level:: Medical - moderate - high VTE Device Contraindication: Treatment Not Indicated VTE Drug Contraindication: N/A - Med Ordered
--- NOTE | 2024-07-16 13:17 | MHC.CM.PN ---
Per rounds and EMR record review, Pt. has not been medically cleared. PT rec rehab, none accepting due to insurance from [place]. Referral into [facility] to assist with changing ins. to [place] [employer]. CM to follow for DC needs.
--- NOTE | 2024-07-16 15:25 | MHC.SLORD ---
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
[2024-07-16] MEDS: levoFLOXacin 250 MG TABLET PO (17:39)
[2024-07-16 18:01] LABS: Glucose, Whole Blood 232 mg/dL (60-115)
[2024-07-16 21:22] LABS: Glucose, Whole Blood 228 mg/dL (60-115)
[2024-07-16] MEDS: Atorvastatin Calcium 40 MG TABLET PO (21:38)
[2024-07-17] VITALS (7 sets, daily range): BP systolic 114–142; BP diastolic 60–72; PULSE 74–89; RESP 16–18; TEMP 36.3–36.7; O2SAT 95–97
[2024-07-17] MEDS: Enoxaparin Sodium 40 MG/0.4 ML SYRINGE SUBCUT ×2 (01:09→21:47)
[2024-07-17 07:57] LABS: Glucose, Whole Blood 190 mg/dL (60-115)
--- NOTE | 2024-07-17 09:56 | P.PNIM_ITS ---
Subjective Subjective Date of Service: 07/17/24 Interval History: Follow-up for Stroke, speech change, weakness. no overnight events Review of Systems Review of Systems: Yes all other systems are reviewed and are negative Constitutional Constitutional: Denies chills and Denies fever(s) Physical Exam 2 Vital Signs: Vital Signs: Last Vital Signs Temp 97.6 F 07/17/24 07:47 Pulse 74 07/17/24 09:18 Resp 17 07/17/24 07:47 BP 141/72 H 07/17/24 09:18 Pulse Ox 95 07/17/24 09:18 O2 Del Method Room Air 07/17/24 07:47 O2 Flow Rate 2 07/12/24 04:54 BMI result Body Mass Index 25.6 Appearing in no acute distress, speech abnormal lung sounds are clear to auscultation heart regular rate rhythm, clear S1, S2 positive bowel sounds, abdomen is soft, nontender neuro patient is alert x3, no focal deficits 4/5 strength to upper and lower extremities Objective Data Active Medications Acetaminophen (Acetaminophen 325 Mg Tablet) 975 mg PO Q6H PRN PRN Reason: Pain, Mild 1-3,fever,headache Aspirin (Aspirin Enteric Coated 81 Mg Tablet.) 81 mg PO DAILY [facility] Last Admin: 07/16/24 08:34 Dose: 81 mg Documented By: LEATHA Atorvastatin Calcium (Atorvastatin Calcium 40 Mg Tablet) 40 mg PO BEDTIME [facility] Last Admin: 07/16/24 21:38 Dose: 40 mg Documented By: ELLIE Calcium Carbonate (Calcium Carbonate 750 Mg Tab.Chew) 750 mg PO Q4H PRN PRN Reason: Heartburn Dextrose (Dextrose 50 % 25 Gm/50 Ml Syringe) 25 gm IVPUSH Q15M PRN; Protocol PRN Reason: per Hypoglycemia Standing Ord. Enoxaparin Sodium (Enoxaparin Sodium 40 Mg/0.4 Ml Syringe) 40 mg SUBCUT Q24H [facility] Last Admin: 07/17/24 01:09 Dose: 40 mg Documented By: ELLIE Glucose (Glucose Gel 15 Gm Gel..Gram.) 15 gm PO Q15M PRN; Protocol PRN Reason: per Hypoglycemia Standing Ord. Insulin Human Lispro (Insulin Lispro 100 Unit/Ml 3 Ml Vial) 0 unit SUBCUT QIDACHS [facility]; Protocol Last Admin: 07/16/24 21:38 Dose: 4 unit Documented By: ELLIE Levofloxacin (Levofloxacin 250 Mg Tablet) 250 mg PO Q24H [facility] Last Admin: 07/16/24 17:39 Dose: 250 mg Documented By: LEATHA Magnesium Hydroxide (Milk Of Magnesia 30 Ml Oral.Susp) 30 ml PO DAILY PRN PRN Reason: Constipation Last Admin: 07/15/24 12:12 Dose: 30 ml Documented By: LEATHA Melatonin (Melatonin 3 Mg Tablet) 6 mg PO BEDTIME PRN PRN Reason: Insomnia Last Admin: 07/15/24 20:45 Dose: 6 mg Documented By: KENTRELLTYALEXANDRA Metoprolol Succinate (Metoprolol Succinate Er 25 Mg Tab.Er.24h) 25 mg PO DAILY [facility]; Protocol Last Admin: 07/16/24 08:34 Dose: 25 mg Documented By: LEATHA Ondansetron HCl (Ondansetron Hcl 4 Mg/2 Ml Vial) 4 mg IVPUSH Q8H PRN PRN Reason: Nausea and Vomiting Polyethylene Glycol (Polyethylene Glycol 3350 17 Gm Powd.Pack) 17 gm PO DAILY PRN PRN Reason: Constipation Sodium Chloride (0.9 % Sodium Chloride Flush 3 Ml Syringe) 3 ml IVFLUSH QSHIFT [facility] Last Admin: 07/16/24 21:38 Dose: 3 ml Documented By: ELLIE Labs 07/14/24 07:32 07/14/24 07:32 Labs: Laboratory Results - last 24 hr 07/16/24 07/16/24 07/16/24 11:17 16:14 20:45 POC Glucose 234 H 232 H 228 H 07/17/24 07:12 POC Glucose 190 H Assessment and Plan (1) Acute stroke due to ischemia: Status: Acute Plan 78-year-old male with a past medical history significant for HTN and type 2 diabetes, who presented to the ED due to chronic right lower back pain radiating to the lower extremities and weakness. Reports right-sided weakness today in inability to ambulate. Acute CVA Dysarthria and right-sided weakness head CT and CTA head and neck negative MRI + for small acute infarcts of the left coley radiata/basal ganglia and anteromedial left temporal lobe speech therapy rec NDD3 diet , with supervision PT/OT eval - rec STR/acute rehab seen by neurology Continue aspirin, Lipitor 40 mg lipid panel within normal limits stroke education echo EF 45-50%, no significant valvular abnormalities Enterococcus faecalis UTI Continue Levaquin (day 4) Chronic back pain lumbar spine x-ray with no acute bony abnormalities, [id number] spondylosis relatively confined to L4-S1, Moderate to severe lower lumbar degenerative changes. HTN BP okay at this time Continue metoprolol Type 2 diabetes hold home glimepiride and metformin sliding scale insulin diabetic diet A1C 8.7 DISPO plan for STR, [employer] application in process Full code VTE prophylaxis: Lovenox dispo - STR vs acute rehab Quality Stroke Does the patient have a stroke diagnosis?: Yes Reason for No Anti-thrombotic by Day Two: Drug treatment not indicated VTE Prior VTE?: No VTE Risk Level:: Medical - moderate - high VTE Device Contraindication: Treatment Not Indicated VTE Drug Contraindication: N/A - Med Ordered
[2024-07-17] MEDS: Aspirin Enteric Coated 81 MG TABLET.DR PO (10:36)
[2024-07-17] MEDS: Insulin Lispro 100 UNIT/ML 3 ML VIAL SUBCUT ×4 (10:36→21:44)
[2024-07-17] MEDS: 0.9 % Sodium Chloride Flush 3 ML SYRINGE IVFLUSH ×3 (10:36→21:45)
[2024-07-17] MEDS: Metoprolol Succinate ER 25 MG TAB.ER.24H PO (10:36)
[2024-07-17 11:22] LABS: Glucose, Whole Blood 333 mg/dL (60-115)
--- NOTE | 2024-07-17 13:46 | P.DS_ITS ---
DS: Providers Provider Date of Service: 07/17/24 Date of admission: 07/11/24 23:48 Date of discharge: 07/17/24 Primary care physician: None Physician Consults: 07/11/24 13:38 Consult to Case Management Stat Comment: 07/11/24 23:51 Consult to Neurology Routine Consulting Provider: [facility] Reason for consultation: ?CVA Has provider been notified: No DS: Diagnosis Discharge Diagnosis (1) Acute stroke due to ischemia: Status: Acute DS: Summary Hospital Course Hospital Course: History and physical as per admitting provider. Patient is a 78-year-old Citizen Of [place]-speaking male with a past medical history significant for HTN and type 2 diabetes, who presented to the ED due to chronic right lower back pain radiating to the lower extremities and weakness. Reports right-sided weakness today in inability to ambulate. He also reports dysarthria which was mentioned by a family member while in the ED, the patient agrees. Last known time prior to wea kness and dysarthria is unknown. Patient also reports urinary frequency but denies any urgency, dysuria or hematuria. He denies any headache, fever, chills, numbness or tingling, change in vision, bowel or bladder incontinence. He recently moved here from [place], and has been without his medications for hypertension and diabetes for an unknown period of time. 73-year-old man treated for acute CVA with dysarthria and right-sided weakness. Head and neck CTA negative, MRI showing small acute infarcts of the left coley radiata/basal ganglia and anteromedial left temporal lobe. Echocardiogram with EF of 45-50% with no significant valvular abnormalities. Speech therapy recommended NDD 3 diet with supervision. PT OT recommended acute rehab, plan is to transfer to [facility]. Patient is to continue aspirin, statin. He was noted to have UTI with culture showing Enterococcus faecalis. He was treated with po Levaquin. Patient lives with family at home and goal is home after acute rehab. Chronic back pain. Chronic findings on lumbar x-ray. Hypertension. Stable blood pressure during hospitalization. Continue metoprolol Diabetes mellitus. Continue home glimepiride and metformin. A1c 8.7 Time Attestation Discharge Coordination Time (in mins): 42 Quality: Safe Use of Opioids Does Pt have an Active Cancer Diagnosis on the Problem List?: No Quality: Stroke Does the patient have a stroke diagnosis?: No Physical Exam Vital Signs: Vital Signs: Last Vital Signs Temp 97.7 F 07/17/24 11:39 Pulse 74 07/17/24 11:39 Resp 17 07/17/24 11:39 BP 124/60 07/17/24 11:39 Pulse Ox 97 07/17/24 11:39 O2 Del Method Room Air 07/17/24 11:39 O2 Flow Rate 2 07/12/24 04:54 BMI result Body Mass Index 25.6 Appearing in no acute distress head is normocephalic atraumatic eyes pupils are PERRLA sclera is anicteric mouth throat mucous membranes are intact and moist neck is supple no lymphadenopathy, no JVD noted lung sounds are clear to auscultation heart regular rate rhythm, clear S1, S2 positive bowel sounds, abdomen is soft, nontender neuro patient is alert x3, no focal deficits DS: Data Data Completed and Pending Labs on day of discharge: Laboratory Results - last 24 hr 07/16/24 07/16/24 07/17/24 16:14 20:45 07:12 POC Glucose 232 H 228 H 190 H 07/17/24 11:08 POC Glucose 333 H Discharge Plan Discharge Anticipated Discharge Date/Time: 07/17/24 13:37 Patient Disposition: Xfer Inpatient Rehab Fac Discharge Diagnosis: Acute CVA Enterococcus faecalis UTI Discharge Medications: New atorvastatin 40 mg Tablet 40 mg PO BEDTIME Qty: 30 0RF levofloxacin 250 mg Tablet 250 mg PO Q24H Qty: 1 0RF aspirin 81 mg Tablet,Delayed Release (Dr/Ec) 81 mg PO DAILY Qty: 30 0RF Continued metoprolol succinate 25 mg Tablet Extended Release 24 Hr 25 mg PO DAILY rosuvastatin 10 mg Tablet 10 mg PO DAILY metformin 850 mg Tablet 850 mg PO BID valsartan 80 mg Tablet 80 mg PO DAILY glimepiride 4 mg Tablet 4 mg PO DAILY Januvia 25 mg Tablet 25 mg PO DAILY Jardiance 10 mg Tablet 10 mg PO DAILY Diet: Advance to usual diet Activity on Discharge: As tolerated Stand Alone Forms: Patient Portal Discharge page Print Language: Citizen Of [place] Care Plan Goals: Transfer to acute rehab for physical therapy Health Concerns: Acute CVA Enterococcus faecalis UTI Plan of Treatment: Follow up with primary care provider as needed Take all medications as prescribed Assessment: See discharge summary
--- NOTE | 2024-07-17 14:02 | MHC.SL.SWA ---
Risk of Aspiration Due to: Neurological Condition s/p CVA Dysphasia Diet Status: UPGRADE Liquid Consistency and Strategies for Safe Swallow: Liquid Intake Recommendation: Thin Liquid Intake Strategies: Small Sips Solid Food Consistency: Dietary Recommendations: Chopped/Advanced (NDD3) Oral Medication Intake: Whole with Puree Please contact the pharmacy regarding appropriate crushable or liquid drug formulations that are available whenever modified delivery is recommended. Compensatory Strategies and Precautions to be Taken for Safe Swallow: Sitting Upright (90 deg) Small Bites and Sips Alternate Liquids/Solids Rate of Ingestion Change Avoid Specific Foods Supervision While Eating and Drinking for Safe Swallow: Total Supervision (1:1) Foods to Avoid: Tough, difficult to chew solids, mixed consistencies. Swallowing Recommended Treatments: Compens. Strategy Educat. Recommendation for Speech: Inpatient Speech Therapy Speech Therapy through [facility] Speech Therapy through Rehab Facility Pt seen for re-evaluation of swallow. Recommend UPGRADE to thin liquids. Continue w/ pills whole in puree and chopped solids d/t decreased lingual function. SUPPORT ENGINEER to continue to monitor swallow and speech. Dry Cell Battery Assembler Clinican/Clinical Fellow: No Supervisory Statement: I have reviewed and agree with the student/clinical fellow's documentation: N/A Speech Language Pathologist: Rabia Abrams M.A., [facility]-SUPPORT ENGINEER
[2024-07-17 15:34] LABS: Glucose, Whole Blood 243 mg/dL (60-115)
[2024-07-17] MEDS: levoFLOXacin 250 MG TABLET PO (16:56)
[2024-07-17 20:36] LABS: Glucose, Whole Blood 206 mg/dL (60-115)
[2024-07-17] MEDS: Atorvastatin Calcium 40 MG TABLET PO (21:44)
[2024-07-18] VITALS: BP 142/75; PULSE 77; RESP 16; TEMP 36.6; O2SAT 97
[2024-07-18 04:00] VITALS: BP 130/67; PULSE 67; RESP 16; TEMP 36.3; O2SAT 95
[2024-07-18 07:09] VITALS: BP 152/82; PULSE 87; RESP 18; TEMP 36.8; O2SAT 97
[2024-07-18 07:37] LABS: Glucose, Whole Blood 159 mg/dL (60-115)
[2024-07-18 08:30] VITALS: BP 152/82; PULSE 87
[2024-07-18] MEDS: Aspirin Enteric Coated 81 MG TABLET.DR PO (08:30)
[2024-07-18] MEDS: Metoprolol Succinate ER 25 MG TAB.ER.24H PO (08:30)
[2024-07-18] MEDS: Insulin Lispro 100 UNIT/ML 3 ML VIAL SUBCUT ×2 (08:30→12:48)
[2024-07-18] MEDS: 0.9 % Sodium Chloride Flush 3 ML SYRINGE IVFLUSH (08:31)
[2024-07-18 08:56] VITALS: BP 152/82; PULSE 87
[2024-07-18 11:09] VITALS: BP 119/65; PULSE 83; RESP 18; TEMP 36.8; O2SAT 97
[2024-07-18 11:20] LABS: Glucose, Whole Blood 290 mg/dL (60-115)
--- NOTE | 2024-07-18 13:54 | MHC.SL.SWA ---
Speech Pathologist Impression: Mild oropharyngeal dysphagia d/t R sided facial droop/weakness Risk of Aspiration Due to: Neurological Condition R sided weakness of orofacial musculature Dysphasia Diet Status: Pt seen for re-evaluation of swallow. Recommend UPGRADE to thin liquids. Continue w/ pills whole in puree and chopped solids d/t decreased lingual function. WOODWORK TEACHER to continue to monitor swallow and speech. Liquid Consistency and Strategies for Safe Swallow: Liquid Intake Recommendation: Thin Liquid Intake Strategies: Small Sips No Straws Solid Food Consistency: Dietary Recommendations: Chopped/Advanced (NDD3) Additional Modifications to Solid Foods: Patient was able to do some independent self feeding during this evaluation, however will need initially direct supervision with assistance as needed at meals. WOODWORK TEACHER reviewed POC with pt niece, who noted pt was coughing with straws. WOODWORK TEACHER recc no straws d/t nature of orofacial deficits s/p CVA. Oral Medication Intake: Whole with Puree Please contact the pharmacy regarding appropriate crushable or liquid drug formulations that are available whenever modified delivery is recommended. Compensatory Strategies and Precautions to be Taken for Safe Swallow: Sitting Upright (90 deg) Small Bites and Sips Alternate Liquids/Solids Rate of Ingestion Change Avoid Specific Foods Supervision While Eating and Drinking for Safe Swallow: Total Supervision (1:1) Foods to Avoid: Hard to chew solids (pt experiencing moderate oral phase dysphgia secondary to chewing his R cheek) Swallowing Recommended Treatments: Compens. Strategy Educat. Recommendation for Speech: Inpatient Speech Therapy Speech Therapy through [facility] Speech Therapy through Rehab Facility Comment: Pt recently upgraded to thin liquids, recc NO STRAWS. Continue w/ pills whole in puree and chopped solids d/t decreased lingual ROM to R side. Pt remains mildly dysarthric, recc direct tx at post acute setting to address motor speech production. WOODWORK TEACHER reviewed recommendations with pt and pt HCP re swallow safety, diet modification and characteristics/prognosis for improved motor speech upon formal assessment and tx of dysarthria at rehab. Frequency/Duration: Date Range for Service Req: Timeline to reassess: Mortgage Accounting Clerk Clinican/Clinical Fellow: No Supervisory Statement: I have reviewed and agree with the student/clinical fellow's documentation: N/A Speech Language Pathologist: Jacque Buenrostro M.S., [facility]-WOODWORK TEACHER
--- NOTE | 2024-07-18 14:57 | MHC.CM.PN ---
Pt has been medically cleared to go to Acute rehab at [place], he will go this afternoon via BLS.
== END 2024-07-18 15:30 | DRG 65 ==
LOC: HO.ED 21:43 → HO.EDOVER 07-12 00:08 → HO.IMC 07-12 07:54
PROVIDERS: Physician Assistant Medical; Admitting Provider Physician Assistant; Emergency Provider Emergency Medicine; Visit Provider Nurse Practitioner Acute Care
DX: I63.9 Cerebral infarction, unspecified (principal); G81.91 Hemiplegia, unspecified affecting right dominant side; N39.0 Urinary tract infection, site not specified; R47.1 Dysarthria and anarthria; M47.817 Spondylosis without myelopathy or radiculopathy, lumbosacral region; E11.9 Type 2 diabetes mellitus without complications; I10 Essential (primary) hypertension; G31.9 Degenerative disease of nervous system, unspecified; M54.9 Dorsalgia, unspecified; G89.29 Other chronic pain; B95.2 Enterococcus as the cause of diseases classified elsewhere; R29.700 NIHSS score 0; Z20.822 Contact with and (suspected) exposure to COVID-19; Z79.84 Long term (current) use of oral hypoglycemic drugs; Z79.899 Other long term (current) drug therapy
CPT/HCPCS: 0241U; 36415; 70450; 70496; 70498; 70551; 72100; 73521; 80048; 80053; 80061; 80307; 81001; 82550; 82947; 83036; 83690; 83735; 84484; 85025; 85027; 85610; 85730; 87086; 87088; 87186; 92526; 92610; 93005; 93306; 97110; 97116; 97162; 97166; 97530; 97535; 99285; J1650; Q9957; Q9967

== ENCOUNTER → 2024-07-11 11:26 | Outpatient (BNV) | payer MEDICARE, SELFPAY | PROVIDERS: Emergency Provider Emergency Medicine; Visit Provider Radiology Diagnostic Radiology | DX: R47.1 Dysarthria and anarthria (principal); R26.0 Ataxic gait; M54.50 Low back pain, unspecified; M16.0 Bilateral primary osteoarthritis of hip; M51.369 Other intervertebral disc degeneration, lumbar region without mention of lumbar back pain or lower extremity pain | CPT/HCPCS: 72100 ==

== ENCOUNTER → 2024-07-11 18:53 | Outpatient (BNV) | payer MEDICARE, SELFPAY | PROVIDERS: Admitting Provider Physician Assistant; Emergency Provider Emergency Medicine; Visit Provider Internal Medicine Cardiovascular Disease | DX: R94.31 Abnormal electrocardiogram [ECG] [EKG] (principal); I63.9 Cerebral infarction, unspecified | CPT/HCPCS: 93010 ==

== ENCOUNTER 2024-07-11 23:48 | Outpatient (BNV) | payer MEDICARE, SELFPAY | END 2024-07-13 10:00 | PROVIDERS: Admitting Provider Physician Assistant; Emergency Provider Emergency Medicine; Visit Provider Internal Medicine Cardiovascular Disease | DX: I35.8 Other nonrheumatic aortic valve disorders (principal); I70.0 Atherosclerosis of aorta | CPT/HCPCS: 93306 ==

== ENCOUNTER 2024-07-11 23:48 | Outpatient (BNV) | payer MEDICARE, SELFPAY | END 2024-07-12 14:51 | PROVIDERS: Admitting Provider Physician Assistant; Emergency Provider Emergency Medicine; Visit Provider Radiology Diagnostic Radiology | DX: I63.9 Cerebral infarction, unspecified (principal) | CPT/HCPCS: 70551 ==

== ENCOUNTER → 2024-07-11 23:48 | Outpatient (BNV) | payer MEDICARE, SELFPAY | PROVIDERS: Admitting Provider Physician Assistant; Emergency Provider Emergency Medicine; Visit Provider Psychiatry & Neurology Neurology | DX: R47.1 Dysarthria and anarthria (principal) | CPT/HCPCS: 99222 ==

== ENCOUNTER → 2024-07-11 23:48 | Outpatient (BNV) | payer MEDICARE, SELFPAY | PROVIDERS: Admitting Provider Physician Assistant; Emergency Provider Emergency Medicine; Visit Provider Physician Assistant Medical | DX: I63.9 Cerebral infarction, unspecified (principal) | CPT/HCPCS: 99232; 99233 ==

== ENCOUNTER 2024-08-06 05:53 | Outpatient (REF) | payer MEDICARE, SELFPAY ==
[2024-08-06 05:56] LABS: MANUAL DIFF FLAG NO
[2024-08-06 06:24] LABS: Basophils Percent Auto 0.5 % (0-2); Eosinophils Absolute Auto 0.1 X10*3/uL (0.0-0.4); Hematocrit 34.4 % (42.0-52.0); Hemoglobin 11.1 g/dl (14.0-18.0); Imm Gran Abs Auto 0.02 X10*3/uL (0.00-0.03); Imm Gran Pct Auto 0.4 % (0.0-0.4); Lymphocytes Percent Auto 34.9 % (20-40); Mean Corpuscular HGB Conc 32.3 g/dl (31.0-36.0); Mean Corpuscular Hemoglobin 27.3 pg (27.0-33.0); Mean Corpuscular Volume 84.7 fL (80.0-98.0); Mean Platelet Volume 11.3 fL (9.4-12.4); Monocytes Absolute Auto 0.6 X10*3/uL (0.1-1.2); Monocytes Percent Auto 9.8 % (2-11); Neutrophils Percent Auto 52.4 % (45-73); Platelet Count 168 X10*3/uL (160-400); Red Blood Count 4.06 X10*6/uL (4.60-5.80); Red Cell Distribution Width 13.2 % (11.0-16.0); White Blood Count 5.6 X10*3/uL (4.8-10.8)
[2024-08-06 06:32] LABS: Alanine Aminotransferase 11 U/L (0-40); Albumin Level 3.5 g/dL (3.5-5.0); Alkaline Phosphatase 44 U/L (39-117); Anion Gap 13 (12-20); Aspartate Amino Transferase 19 U/L (5-37); Bilirubin Total 0.4 mg/dL (0.0-1.0); Blood Urea Nitrogen 11 mg/dL (9-16); Calcium 8.5 mg/dL (8.4-10.2); Carbon Dioxide 26 mmol/L (22-29); Chloride 107 mmol/L (96-108); Estimated Glomerular Filt Rate > 60; Glucose Random 116 mg/dL (60-115); Potassium 3.8 mmol/L (3.3-5.1); Sodium 142 mmol/L (135-145); Total Protein 5.9 g/dL (6.5-8.0)
== END 2024-08-06 05:54 | disposition home or self-care (01) ==
LOC: HO.MMNH1L 05:53
PROVIDERS: Visit Provider Student in an Organized Health Care Education/Training Program
DX: I10 Essential (primary) hypertension (principal); E11.9 Type 2 diabetes mellitus without complications; M54.30 Sciatica, unspecified side
CPT/HCPCS: 36415; 80053; 85025

== ENCOUNTER 2024-08-13 05:49 | Outpatient (REF) | payer MEDICARE, SELFPAY ==
[2024-08-13 05:48] LABS: MANUAL DIFF FLAG NO
[2024-08-13 06:10] LABS: Basophils Percent Auto 0.6 % (0-2); Eosinophils Absolute Auto 0.1 X10*3/uL (0.0-0.4); Eosinophils Percent Auto 2.1 % (0-4); Hematocrit 35.6 % (42.0-52.0); Hemoglobin 11.4 g/dl (14.0-18.0); Imm Gran Abs Auto 0.02 X10*3/uL (0.00-0.03); Imm Gran Pct Auto 0.3 % (0.0-0.4); Lymphocytes Absolute Auto 2.5 X10*3/uL (1.2-4.9); Lymphocytes Percent Auto 41.2 % (20-40); Mean Corpuscular Volume 84.2 fL (80.0-98.0); Mean Platelet Volume 10.9 fL (9.4-12.4); Monocytes Absolute Auto 0.6 X10*3/uL (0.1-1.2); Monocytes Percent Auto 10.2 % (2-11); Neutrophils Absolute Auto 2.8 x10*3/uL (2.0-8.3); Neutrophils Percent Auto 45.6 % (45-73); Platelet Count 167 X10*3/uL (160-400); Red Blood Count 4.23 X10*6/uL (4.60-5.80); Red Cell Distribution Width 13.3 % (11.0-16.0); White Blood Count 6.2 X10*3/uL (4.8-10.8)
[2024-08-13 06:37] LABS: Anion Gap 14 (12-20); Blood Urea Nitrogen 7 mg/dL (9-16); Calcium 8.5 mg/dL (8.4-10.2); Carbon Dioxide 25 mmol/L (22-29); Chloride 106 mmol/L (96-108); Estimated Glomerular Filt Rate > 60; Glucose Random 107 mg/dL (60-115); Potassium 3.8 mmol/L (3.3-5.1); Sodium 141 mmol/L (135-145)
== END 2024-08-13 05:50 | disposition home or self-care (01) ==
LOC: HO.MMNH1L 05:49
PROVIDERS: Visit Provider Student in an Organized Health Care Education/Training Program
DX: I10 Essential (primary) hypertension (principal); E11.9 Type 2 diabetes mellitus without complications; M54.30 Sciatica, unspecified side
CPT/HCPCS: 36415; 80048; 85025

== ENCOUNTER 2024-08-20 06:42 | Outpatient (REF) | payer MEDICARE, SELFPAY ==
[2024-08-20 06:04] LABS: MANUAL DIFF FLAG NO
[2024-08-20 06:47] LABS: Anion Gap 13 (12-20); Blood Urea Nitrogen 9 mg/dL (9-16); Calcium 8.7 mg/dL (8.4-10.2); Carbon Dioxide 29 mmol/L (22-29); Chloride 103 mmol/L (96-108); Estimated Glomerular Filt Rate > 60; Glucose Random 128 mg/dL (60-115); Potassium 3.5 mmol/L (3.3-5.1); Sodium 141 mmol/L (135-145)
[2024-08-20 07:08] LABS: Basophils Percent Auto 0.3 % (0-2); Eosinophils Absolute Auto 0.1 X10*3/uL (0.0-0.4); Eosinophils Percent Auto 1.6 % (0-4); Hematocrit 37.7 % (42.0-52.0); Hemoglobin 12.3 g/dl (14.0-18.0); Imm Gran Abs Auto 0.03 X10*3/uL (0.00-0.03); Imm Gran Pct Auto 0.5 % (0.0-0.4); Lymphocytes Absolute Auto 2.2 X10*3/uL (1.2-4.9); Lymphocytes Percent Auto 36.2 % (20-40); Mean Corpuscular HGB Conc 32.6 g/dl (31.0-36.0); Mean Corpuscular Hemoglobin 27.3 pg (27.0-33.0); Mean Corpuscular Volume 83.6 fL (80.0-98.0); Mean Platelet Volume 10.5 fL (9.4-12.4); Monocytes Absolute Auto 0.7 X10*3/uL (0.1-1.2); Monocytes Percent Auto 11.1 % (2-11); NRBC Pct Auto 0.5 /100WBC (0.0-0.2); Neutrophils Absolute Auto 3.1 x10*3/uL (2.0-8.3); Neutrophils Percent Auto 50.3 % (45-73); Platelet Count 153 X10*3/uL (160-400); Red Blood Count 4.51 X10*6/uL (4.60-5.80); Red Cell Distribution Width 13.6 % (11.0-16.0); White Blood Count 6.1 X10*3/uL (4.8-10.8)
== END 2024-08-20 06:43 | disposition home or self-care (01) ==
LOC: HO.MMNH1L 06:42
PROVIDERS: Visit Provider Student in an Organized Health Care Education/Training Program
DX: I10 Essential (primary) hypertension (principal); E11.9 Type 2 diabetes mellitus without complications; M54.30 Sciatica, unspecified side
CPT/HCPCS: 36415; 80048; 85025

== ENCOUNTER 2024-08-27 06:12 | Outpatient (REF) | payer SELFPAY ==
[2024-08-27 06:11] LABS: MANUAL DIFF FLAG NO
[2024-08-27 06:56] LABS: Basophils Percent Auto 0.6 % (0-2); Eosinophils Absolute Auto 0.1 X10*3/uL (0.0-0.4); Eosinophils Percent Auto 1.9 % (0-4); Hematocrit 35.5 % (42.0-52.0); Hemoglobin 11.5 g/dl (14.0-18.0); Imm Gran Abs Auto 0.02 X10*3/uL (0.00-0.03); Imm Gran Pct Auto 0.3 % (0.0-0.4); Lymphocytes Absolute Auto 2.6 X10*3/uL (1.2-4.9); Lymphocytes Percent Auto 38.7 % (20-40); Mean Corpuscular HGB Conc 32.4 g/dl (31.0-36.0); Mean Corpuscular Hemoglobin 27.3 pg (27.0-33.0); Mean Corpuscular Volume 84.3 fL (80.0-98.0); Mean Platelet Volume 10.8 fL (9.4-12.4); Monocytes Absolute Auto 0.7 X10*3/uL (0.1-1.2); Monocytes Percent Auto 10.1 % (2-11); Neutrophils Absolute Auto 3.3 x10*3/uL (2.0-8.3); Neutrophils Percent Auto 48.4 % (45-73); Platelet Count 160 X10*3/uL (160-400); Red Blood Count 4.21 X10*6/uL (4.60-5.80); Red Cell Distribution Width 13.7 % (11.0-16.0); White Blood Count 6.8 X10*3/uL (4.8-10.8)
[2024-08-27 07:08] LABS: Anion Gap 12 (12-20); Blood Urea Nitrogen 11 mg/dL (9-16); Calcium 8.7 mg/dL (8.4-10.2); Carbon Dioxide 27 mmol/L (22-29); Chloride 106 mmol/L (96-108); Estimated Glomerular Filt Rate > 60; Glucose Random 126 mg/dL (60-115); Potassium 3.8 mmol/L (3.3-5.1); Sodium 141 mmol/L (135-145)
== END 2024-08-27 06:13 | disposition home or self-care (01) ==
LOC: HO.MMNH1L 06:12
PROVIDERS: Visit Provider Student in an Organized Health Care Education/Training Program
DX: I10 Essential (primary) hypertension (principal); E11.9 Type 2 diabetes mellitus without complications; M54.30 Sciatica, unspecified side
CPT/HCPCS: 36415; 80048; 85025

== ENCOUNTER 2024-09-03 05:37 | Outpatient (REF) | payer MEDICARE, SELFPAY ==
[2024-09-03 05:33] LABS: MANUAL DIFF FLAG NO
[2024-09-03 06:22] LABS: Basophils Percent Auto 0.4 % (0-2); Eosinophils Absolute Auto 0.1 X10*3/uL (0.0-0.4); Eosinophils Percent Auto 1.7 % (0-4); Hematocrit 34.5 % (42.0-52.0); Hemoglobin 11.3 g/dl (14.0-18.0); Imm Gran Abs Auto 0.01 X10*3/uL (0.00-0.03); Imm Gran Pct Auto 0.1 % (0.0-0.4); Lymphocytes Absolute Auto 2.5 X10*3/uL (1.2-4.9); Lymphocytes Percent Auto 35.4 % (20-40); Mean Corpuscular HGB Conc 32.8 g/dl (31.0-36.0); Mean Corpuscular Hemoglobin 27.5 pg (27.0-33.0); Mean Corpuscular Volume 83.9 fL (80.0-98.0); Mean Platelet Volume 10.6 fL (9.4-12.4); Monocytes Absolute Auto 0.7 X10*3/uL (0.1-1.2); Monocytes Percent Auto 9.7 % (2-11); Neutrophils Absolute Auto 3.7 x10*3/uL (2.0-8.3); Neutrophils Percent Auto 52.7 % (45-73); Platelet Count 171 X10*3/uL (160-400); Red Blood Count 4.11 X10*6/uL (4.60-5.80); Red Cell Distribution Width 13.7 % (11.0-16.0); White Blood Count 6.9 X10*3/uL (4.8-10.8)
[2024-09-03 06:33] LABS: Anion Gap 12 (12-20); Blood Urea Nitrogen 11 mg/dL (9-16); Calcium 8.5 mg/dL (8.4-10.2); Carbon Dioxide 26 mmol/L (22-29); Chloride 105 mmol/L (96-108); Estimated Glomerular Filt Rate > 60; Glucose Random 143 mg/dL (60-115); Potassium 3.8 mmol/L (3.3-5.1); Sodium 139 mmol/L (135-145)
== END 2024-09-03 05:38 | disposition home or self-care (01) ==
LOC: HO.MMNH1L 05:37
PROVIDERS: Visit Provider Student in an Organized Health Care Education/Training Program
DX: I10 Essential (primary) hypertension (principal); E11.9 Type 2 diabetes mellitus without complications; M54.30 Sciatica, unspecified side
CPT/HCPCS: 36415; 80048; 85025

== ENCOUNTER 2024-09-11 06:41 | Outpatient (REF) | payer MEDICARE, SELFPAY ==
[2024-09-11 05:59] LABS: MANUAL DIFF FLAG NO
[2024-09-11 06:29] LABS: Basophils Absolute Auto 0.1 X10*3/uL (0.0-0.2); Basophils Percent Auto 0.8 % (0-2); Eosinophils Absolute Auto 0.2 X10*3/uL (0.0-0.4); Eosinophils Percent Auto 2.9 % (0-4); Hematocrit 33.4 % (42.0-52.0); Hemoglobin 11.2 g/dl (14.0-18.0); Imm Gran Abs Auto 0.02 X10*3/uL (0.00-0.03); Imm Gran Pct Auto 0.3 % (0.0-0.4); Lymphocytes Absolute Auto 2.5 X10*3/uL (1.2-4.9); Lymphocytes Percent Auto 39.2 % (20-40); Mean Corpuscular HGB Conc 33.5 g/dl (31.0-36.0); Mean Corpuscular Hemoglobin 27.6 pg (27.0-33.0); Mean Corpuscular Volume 82.3 fL (80.0-98.0); Mean Platelet Volume 10.5 fL (9.4-12.4); Monocytes Absolute Auto 0.7 X10*3/uL (0.1-1.2); Monocytes Percent Auto 11.1 % (2-11); Neutrophils Absolute Auto 2.9 x10*3/uL (2.0-8.3); Neutrophils Percent Auto 45.7 % (45-73); Platelet Count 165 X10*3/uL (160-400); Red Blood Count 4.06 X10*6/uL (4.60-5.80); Red Cell Distribution Width 13.9 % (11.0-16.0); White Blood Count 6.3 X10*3/uL (4.8-10.8)
[2024-09-11 06:57] LABS: Anion Gap 12 (12-20); Blood Urea Nitrogen 11 mg/dL (9-16); Calcium 8.5 mg/dL (8.4-10.2); Carbon Dioxide 26 mmol/L (22-29); Chloride 107 mmol/L (96-108); Estimated Glomerular Filt Rate > 60; Glucose Random 135 mg/dL (60-115); Potassium 4.2 mmol/L (3.3-5.1); Sodium 141 mmol/L (135-145)
== END 2024-09-11 06:42 | disposition home or self-care (01) ==
LOC: HO.MMNH1L 06:41
PROVIDERS: Visit Provider Student in an Organized Health Care Education/Training Program
DX: I10 Essential (primary) hypertension (principal); E11.9 Type 2 diabetes mellitus without complications; M54.30 Sciatica, unspecified side
CPT/HCPCS: 36415; 80048; 85025

== ENCOUNTER 2024-10-26 11:22 | Inpatient (IN) | payer MEDICARE, OTHER, SELFPAY ==
[2024-10-26] VITALS (8 sets, daily range): BP systolic 111–156; BP diastolic 48–83; PULSE 76–115; RESP 15–23; TEMP 36.4–39.3; O2SAT 92–98; BMI 25.2
--- NOTE | 2024-10-26 | ECG_ITS ---
Test Reason : abdominal pain/stroke Blood Pressure : */* mmHG Vent. Rate : 76 BPM Atrial Rate : 76 BPM P-R Int : 130 ms QRS Dur : 72 ms QT Int : 380 ms P-R-T Axes : 42 2 43 degrees QTcB Int : 427 ms Normal sinus rhythm Normal ECG When compared with ECG of 11-Jul-2024 19:16, QRS axis Shifted right Referred By: Quentin Mesa Electronically Signed By: Amos Dickey
--- NOTE | ~2024-10-26 | CT_ITS ---
CLINICAL HISTORY: diverticulitis, worsening pain, anorexia- bandemia CT abdomen and pelvis with contrast Comparison: CT/SR - CT ABDOMEN PELVIS W IV CON - 10/26/24 20:07 EDT Findings: Trace bilateral pleural effusions with adjacent compressive atelectasis, increased. Motion versus wall thickening of the gallbladder. No gallstones visible on CT. Dependent increased attenuation in the gallbladder could be vicarious excretion of previously administered contrast or sludge. There is contrast in the bladder. The bladder is thick-walled, unchanged calcifications in the left renal pelvis are vascular. No hydronephrosis or nephrolithiasis. No focal decreased enhancement of the kidneys the other solid organs are unremarkable. Small hiatal hernia. Wall thickening versus underdistention of portions of the small bowel and colon. The rectum is distended with stool, measuring 6.4 cm in transverse dimension. A normal appendix is identified. Colonic diverticulosis. No definitive inflamed diverticula or focal pericolonic stranding. No aneurysm. Moderate calcified atherosclerotic disease. No lymphadenopathy. Trace ascites, new. No acute osseous abnormality. Impression: Erosion versus wall thickening of the gallbladder. No gallstones visible on CT. If there is clinical concern for acute cholecystitis consider further evaluation with right upper quadrant ultrasound. Gallbladder wall thickening may also be secondary to systemic pathology such as liver pathology. There is periportal edema which can be seen in the setting of acute liver pathology or be secondary to hydration status. Trace bilateral pleural effusions and ascites, increased. No definitive acute diverticulitis. Wall thickening versus underdistention of portions of the small bowel and colon. Enterocolitis of an infectious or inflammatory etiology could be considered. Distention of the rectum with stool may indicate fecal impaction. This document has been electronically signed by: Leyda Mckee MD on 10/27/2024 13:07:49
--- NOTE | ~2024-10-26 | XR_ITS ---
CLINICAL HISTORY: Fever 1 view chest x-ray Comparison: 10/26/2024 Findings: Lung inflation is normal. Cardiac and mediastinal silhouettes are normal. Pulmonary venous vasculature is prominent. Bilateral peribronchovascular opacities are present. There is no pneumothorax. There is no pleural effusion. No consolidative opacities. Osseous structures are normal. IMPRESSION: 1. Mild pulmonary interstitial edema, sequelae of inflammation, or viral or atypical infection This document has been electronically signed by: Robert Virk III, MD PHD on 10/26/2024 21:37:10
--- NOTE | ~2024-10-26 | MR_ITS ---
CLINICAL HISTORY: Poss worsening stroke sympt, rob speech MR of the brain without contrast Comparison: CT/SR - CT HEAD FOR ICH - 10/26/24 11:55 EDT MR/FL/SR - MR HEAD/BRAIN WO CON - 07/12/24 14:[address]/SR - CT ANGIO HEAD NECK STROKE - 07/11/24 18:[address] - CT HEAD FOR STROKE - 07/11/24 18:[address]/SR - CT HEAD FOR STROKE - 07/11/24 18:49 EDT Findings: No acute infarction, hemorrhage, mass-effect or herniation. There is susceptibility on the SWI images within of the globus pallidus bilaterally, greater on the right, also present on the prior study. On the right there is associated decreased signal on the FLAIR/T2 weighted and T1 weighted images, which was also present on the prior study and indicates chronic hemorrhage. 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 Cavum septum pellucidum et vergae, a normal variant. Increased signal intensity is seen in the deep and periventricular white matter on the T2/FLAIR sequences, which most likely represents the sequela of moderate chronic small vessel ischemic disease. Chronic lacunar infarctions in the per, midbrain and in the bilateral basal ganglia, thalami and coley radiata. No extra-axial fluid collection or mass. Unremarkable sella. Intact flow voids. Normal orbits. Mild mucosal thickening in the right frontal sinus and ethmoid air cells. Otherwise clear paranasal sinuses and mastoid air cells. Unremarkable osseous structures. Impression: No acute infarction or other findings to explain the patient's presentation. This document has been electronically signed by: Leyda Mckee MD on 10/26/2024 17:52:27
--- NOTE | ~2024-10-26 | CT_ITS ---
EXAMINATION: CT HEAD WITHOUT CONTRAST CLINICAL INFORMATION: dizziness, worsening speech difficulty COMPARISON: July 11, 2024. Correlated to MRI dated July 12, 2024 demonstrated acute stroke/ischemia. TECHNIQUE: Contiguous axial imaging was performed from the skull base to vertex without intravenous administration of contrast. This CT examination was performed using dose optimization techniques as appropriate, variously including the following: *Automated exposure control *Adjustment of mA and/or kV according to patient size (this includes techniques or standardized protocols for targeted exams where dose is matched to indication/reason for exam; i.e. extremities or head) *Use of iterative reconstruction technique DLP: 550 mGy-cm FINDINGS: No acute intracranial hemorrhage, mass effect, midline shift, hydrocephalus or herniation. Bilateral multifocal patchy and confluent deep periventricular white matter hypodensities involving centrum semiovale and coley radiata. Old lacunar infarct, posterior limb left internal capsule. Old lacunar infarcts, basal ganglia and extracapsular. Posterior cranial fossa contents demonstrated no acute hemorrhage or gross mass effect. Calcified plaques in the cavernous supracavernous segments both ICAs. Prominence of the extra-axial CSF spaces cerebral sulci and ventricles. Cavum septum pellucidum and cavum vergae, congenital. CT/CT Head for ICH IMPRESSION: No acute hemorrhage. Small vessel occlusive disease. Electronically signed by: Codey Lindsay MD 10/26/2024 12:25 PM EDT
--- NOTE | ~2024-10-26 | CT_ITS ---
CLINICAL HISTORY: vomiting CT abdomen and pelvis with contrast Comparison: CT - CT ABDOMEN PELVIS W IV CON - 10/26/24 20:05 EDT Findings: The lung bases are clear. No pleural effusion. Mild cardiomegaly. No pericardial effusion. Hepatic parenchyma is normal. The gallbladder is normal. Portal venous enhancement is normal. Pancreas is normal. No pancreatic ductal dilatation. Spleen is normal. The stomach is partially distended. There is a small amount of fat stranding adjacent to the stomach without evidence for free air. Duodenum is normal. Adrenal glands are normal. Kidneys demonstrate nonobstructing renal lithiasis. Perinephric fat stranding is present. No hydroureter or ureteral lithiasis ureterovesicular junctions are normal. Bladder is partially distended. There is prostatic hypertrophy. Small bowel is normal. No focal small bowel dilatation or wall thickening is present. Terminal ileum is normal. Cecum is normal. The partially gas-filled appendix is retrocecal and normal. The transverse colon demonstrates a moderate stool burden at the splenic flexure. Descending colon is decompressed. There is fat stranding adjacent to decompressed proximal sigmoid colon with scattered sigmoid diverticuli and wall thickening. The distal sigmoid colon and rectum demonstrate a profuse stool burden extending to the rectum. No mesenteric adenopathy. No pneumoperitoneum, or pneumatosis. Vascular calcifications are present in the abdominal aorta and at the origins of the mesenteric vessels and renal arteries. Vascular calcifications are present within the bilateral internal iliac arteries. There is at least moderate stenosis at the origin of the SMA. Atherosclerotic plaque results in 30% stenosis of the infrarenal abdominal aorta. Multilevel degenerative disc disease is present throughout the thoracic and lumbar spine. Bridging syndesmophytes results in fusion at T8 through T11. Bilateral sacroiliac degenerative changes with left partial ankylosis. No acute lumbar vertebral body height loss. Articular facets are normally aligned. Spinous processes are intact. Transverse processes are intact. There is mild spinal canal narrowing at L3/L4. Moderate spinal canal stenosis at L4/L5 secondary to symmetric disc bulge, facet hypertrophy, ligamentum flavum. Mild spinal canal stenosis at L5/S1. No displaced rib fractures. No acute fracture. IMPRESSION: Proximal sigmoid diverticulitis without free air or peridiverticular abscess. Wall thickening and adjacent fat stranding of the proximal sigmoid. Profuse stool burden in the rectum and distal sigmoid. No evidence of appendicitis. This document has been electronically signed by: Robert Virk III, MD PHD on 10/26/2024 21:49:43
--- NOTE | 2024-10-26 11:24 | ED.GENADULT ---
HPI - General Adult General Chief complaint: Abdominal Pain Stated complaint: Abdominal pain and dizziness Time Seen by Provider: 10/26/24 11:24 History of Present Illness ED Provider: Bonita ARMSTRONG narrative: The patient is a 74-year-old male. He has a history of type 2 diabetes and hypertension. He was recently hospitalized in June 2024. On MRI he had small acute infarcts in his left coley radiata/basal ganglia and in the anterior medial left temporal lobe. He was briefly hospitalized and was discharged on a baby aspirin daily and atorvastatin. He was continued on metoprolol, rosuvastatin, metformin, valsartan, glimepiride, Januvia, and Jardiance. He was also discharged on levofloxacin because his urine had grown Enterococcus faecalis. At discharge she went to the [facility] rehab facility for acute rehab. He then went to the [facility] for awhile after that and returned home about 6 weeks ago. He has been receiving at home physical therapy. According to his niece who was his power of state attorney his speech has never recovered that well since the stroke. He is often hard to understand. The patient presents by ambulance today because yesterday afternoon at around 04:00 he experienced dizziness, nausea, and vomiting. Possibly also some mild abdominal discomfort. He vomited a few times yesterday. He says he slept well during the night last night but this morning he again felt dizzy and nauseated. He did not eat anything and ultimately his family felt something was wrong and called an ambulance and he was brought to the hospital. Here in the emergency room the patient says he may have some minimal abdominal pain but no severe abdominal pain. He has some nausea and some dizziness. No significant headache. He has not had a fever. Related Data Home Medications ?Medication ?Instructions ?Recorded ?Confirmed metoprolol succinate 25 mg 25 mg PO DAILY 07/11/24 07/12/24 tablet,extended release 24 hr rosuvastatin 10 mg tablet 10 mg PO DAILY 07/11/24 07/12/24 empagliflozin 10 mg tablet 10 mg PO DAILY 07/12/24 07/12/24 (Jardiance) glimepiride 4 mg tablet 4 mg PO DAILY 07/12/24 07/12/24 metformin 850 mg tablet 850 mg PO BID 07/12/24 07/12/24 sitagliptin phosphate 25 mg tablet 25 mg PO DAILY 07/12/24 07/12/24 (Januvia) valsartan 80 mg tablet 80 mg PO DAILY 07/12/24 07/12/24 Previous Rx's ?Medication ?Instructions ?Recorded aspirin 81 mg tablet,delayed 81 mg PO DAILY #30 tabs 07/17/24 release atorvastatin 40 mg tablet 40 mg PO BEDTIME #30 tabs 07/17/24 levofloxacin 250 mg tablet 250 mg PO Q24H #1 tab 07/17/24 Allergies Allergy/AdvReac Type Severity Reaction Status Date / Time No Known Allergies Allergy Verified 10/26/24 11:34 Review of Systems Review of Systems: Yes all other systems are reviewed and are negative [facility] Past Medical History Medical History Acute stroke due to ischemia Chronic back pain Type 2 diabetes mellitus without complications HTN (hypertension) Social History Social History Household Members: Family Housing: House Do you presently have visiting nurse or other home services: No Patient Tobacco Use Status: Never used Tobacco Advance Directives: No Advance Directives Information Provided: Yes Do you have a plan to hurt others: No Plan service: No Physical Exam ED Vital Signs: Vital Signs - 24 hr 10/26/24 11:29 10/26/24 14:06 10/26/24 16:09 Temperature 97.6 F 97.5 F Pulse Rate 79 76 78 Respiratory Rate 17 18 18 Blood Pressure 156/75 H 134/48 L 143/71 H Pulse Oximetry 96 98 98 Oxygen Delivery Method Room Air Room Air Room Air 10/26/24 18:32 10/26/24 20:36 Temperature 102.8 F H Pulse Rate 91 115 H Respiratory Rate 16 20 Blood Pressure 147/52 H 130/53 L Pulse Oximetry 96 92 Oxygen Delivery Method Room Air Room Air BMI result Body Mass Index 25.2 Const Other: The patient is a somewhat chronically ill-appearing 74-year-old male. He is awake and alert. He has a pleasant demeanor. He did not seem in distress. His speech was difficult to understand. HENMT Other: The face is symmetrical. The tongue deviates to the left. Mucous membranes are moist. Eyes Other: Pupils are round equal, conjunctivae are clear, extraocular movements intact. Lateral gaze is intact bilaterally. Visual galarza are intact to confrontation. General: appearance normal, both eyes and all related structures Neck Neck: Yes normal visual inspection, Yes full ROM, Yes no lymphadenopathy and Yes no JVD Resp Effort & Inspection: normal respiratory effort Auscultation: clear to auscultation bilaterally Cardio Rate: regular rate Rhythm: regular rhythm Heart sounds: S1 normal heart sound present and S2 normal heart sound present GI Other: Abdomen was soft and nontender Skin Other: The skin is dry and unremarkable General skin exam: no rashes or lesions noted Neuro Other: The patient is awake and alert. He seems reasonably well oriented. His speech is difficult to understand and I believe this is a consequence of his stroke in June. However he does not seem to have emma dysarthria or aphasia. Pupils are round equal and eye movements are intact. Visual galarza are intact to confrontation. His tongue deviates to the left when he protrudes his tongue. He has symmetrical strength in his extremities. No focal weakness. Cerebellar testing is normal. Sensation is intact. His NIH stroke scale is 0. Extrem Other: There is no calf swelling or tenderness. No asymmetry. No peripheral edema. Medications Administered Generic Name Dose Route Start Last Admin Trade Name Freq PRN Reason Stop Dose Admin Piperacillin Sod/Tazobactam 100 mls @ 200 mls/hr 10/26/24 23:00 10/27/24 00:14 Sod 4.5 gm/ Sodium Chloride IV Infused Q6H JACIEL Infusion Lactated Ringer's 1,000 mls @ 125 mls/hr 10/26/24 23:00 10/26/24 23:29 Lr IVCONT 10/27/24 06:59 125 mls/hr .Q8H JACIEL Administration Insulin Human Lispro 0 unit 10/27/24 00:00 10/26/24 23:59 Insulin Lispro 100 Unit/Ml 3 Ml Vial SUBCUT 4 unit Q6H JACIEL Administration Protocol Sodium Chloride 3 ml 10/27/24 00:00 10/27/24 01:23 0.9 % Sodium Chloride Flush 3 Ml Syringe IVFLUSH Not Given QSHIFT JACIEL Discontinued Medications Generic Name Dose Route Start Last Admin Trade Name Freq PRN Reason Stop Dose Admin Sodium Chloride 1,000 mls @ 999 mls/hr 10/26/24 12:45 10/26/24 15:30 Ns IV 07/11/25 13:45 Infused .Q1H1M JACIEL Infusion Lactated Ringer's 1,000 mls @ 999 mls/hr 10/26/24 20:45 10/26/24 22:08 Lr IV 10/26/24 21:45 Infused .Q1H1M JACIEL Infusion Acetaminophen 1,000 mg in 100 mls @ 400 mls/hr 10/26/24 20:43 10/26/24 21:21 Ofirmev IV 10/26/24 20:57 Infused ONCE ONE Infusion Metronidazole 500 mg in 100 mls @ 100 mls/hr 10/26/24 22:02 10/26/24 23:13 Flagyl IV 10/26/24 23:01 Infused ONCE ONE Infusion Lactated Ringer's 1,000 mls @ 999 mls/hr 10/26/24 22:15 10/26/24 23:21 Lr IV 10/26/24 23:15 Infused .Q1H1M JACIEL Infusion Magnesium Sulfate 2 gm in 50 mls @ 25 mls/hr 10/26/24 22:55 10/26/24 23:27 Magnesium Sulfate/H2o IV 10/27/24 00:54 25 mls/hr ONCE ONE Administration Vancomycin HCl 1,250 mg/ 250 mls @ 166.667 mls/hr 10/26/24 22:56 10/27/24 01:22 Sodium Chloride IV 10/27/24 00:25 Not Given ONCE ONE Vancomycin HCl 1,000 mg/ 535 mls @ 267.5 mls/hr 10/26/24 23:15 10/27/24 01:08 Vancomycin HCl 750 mg/ Sodium IV 10/27/24 01:14 267.5 mls/hr Chloride ONCE ONE Administration Iohexol 100 ml 10/26/24 20:21 10/26/24 20:22 Iohexol 350 Mg/Ml 100 Ml Infus..Btl IV 10/26/24 20:22 85 ml ONCE ONE Administration Levofloxacin 250 mg 10/26/24 18:28 10/26/24 18:46 Levofloxacin 250 Mg Tablet PO 10/26/24 18:29 250 mg ONCE ONE Administration Ondansetron HCl 4 mg 10/26/24 19:33 10/26/24 19:40 Ondansetron Hcl 4 Mg/2 Ml Vial IVPUSH 10/26/24 19:34 4 mg ONCE ONE Administration Medical Decision Making Medical Decision Making [facility] Narrative: The patient is a 74-year-old male who had strokes in his left brain 4 months ago. He has been left with some difficulty ambulating and his speech has been harder to understand since the stroke. He has been living at home with his family since returning from rehab about 6 weeks ago. He comes to the emergency room today because he started to feel unwell yesterday at around 16:00. He had some mild abdominal discomfort, nausea, and vomiting. He also complained of feeling dizzy. On arrival in the emergency room the patient was not having any significant abdominal pain. He complained primarily of dizziness. He did not seem obviously toxic. Vital signs were unremarkable. I found his speech difficult to understand although he did not have emma aphasia or dysarthria. My initial impression was that perhaps he was having additional stroke symptoms rather than an acute intra-abdominal process. He was not febrile or tachycardic initially. He has a normal white count. Only a slight left shift. CRP was normal at 0.46. The patient is niece arrived and felt that the patient's speech might has been worse than it has been a few days ago. This raised my concern about the possibility of a recurrent or worsening stroke syndrome. An initial head CT has been negative. An MRI was repeated. There are no new MRI findings. Given that the patient has MRI findings were unremarkable and his laboratory testing was unremarkable in his clinical appearance seems fairly benign and since he did not have significant ongoing symptoms in the emergency room my impression was we could probably discharge him. He had tolerated food well and seemed happy and cheerful. He had an abnormal urinalysis. Previous urine culture from June had grown Enterococcus faecalis. He was given a dose of oral Levaquin. Again it was my impression he could probably be discharged. However before he was discharged he had another episode of vomiting so a CT scan of the abdomen and pelvis was ordered. While waiting for the results of the CT scan of the abdomen and pelvis he was found to have a temperature of 102.8 degrees with a heart rate of 115. Therefore blood cultures and a lactate were ordered. An IV dose of levofloxacin was ordered as well. The patient's lactate came back surprisingly elevated at 4.8. This does not seem consistent with the entirety of the patient's clinical presentation. At no point has been hypotensive or seemed acutely ill. The CT scan of the abdomen and pelvis came back positive for acute diverticulitis without abscess or other complication. With this result I also ordered a dose of 500 mg of IV metronidazole. I discussed the case with the hospitalist and the patient will be admitted to the hospitalist service. The patient was given additional IV fluids. In total I had ordered 3 L of crystalloid, 1 L of normal saline and 2 L of lactated Ringer's. These IV fluids had been initiated before the patient was found to be febrile but I believe these are sufficient fluids for the patient. A repeat lactate was done 2 hours after the initial lactate. The lactate remains significantly elevated at 4.3. The patient remains normotensive and not tachycardic. It is my clinical impression therefore the the patient is not in septic shock of any kind. I suspect that his elevated lactates are more likely related to his use of metformin than severe sepsis. In any event I performed a focused sepsis exam at 23:59 10/26/2024. as the patient has a remained hemodynamically stable I think he may continue with the plan to be admitted to the hospitalist service. Lab Data 10/26/24 11:55 10/26/24 11:55 Labs: Lab Results 10/26/24 10/26/24 10/26/24 Range/Units 11:55 12:49 15:12 WBC 9.0 (4.8-10.8) X10*3/uL RBC 4.24 L (4.60-5.80) X10*6/uL Hgb 11.6 L (14.0-18.0) g/dl Hct 34.5 L (42.0-52.0) % MCV 81.4 (80.0-98.0) fL MCH 27.4 (27.0-33.0) pg MCHC 33.6 (31.0-36.0) g/dl RDW 13.7 (11.0-16.0) % Plt Count 204 (160-400) X10*3/uL MPV 10.6 (9.4-12.4) fL Immature Gran % (Auto) 0.3 (0.0-0.4) % Neut % (Auto) 79.1 H (45-73) % Lymph % (Auto) 14.2 L (20-40) % [place]ill % (Auto) 6.1 (2-11) % Eos % (Auto) 0.1 (0-4) % Baso % (Auto) 0.2 (0-2) % Lymph # (Auto) 1.3 (1.2-4.9) X10*3/uL [place] # (Auto) 0.6 (0.1-1.2) X10*3/uL Eos # (Auto) 0.0 (0.0-0.4) X10*3/uL Baso # (Auto) 0.0 (0.0-0.2) X10*3/uL Abs Immat Gran (auto) 0.03 (0.00-0.03) X10*3/uL Absolute Neuts (auto) 7.2 (2.0-8.3) x10*3/uL Absolute Nucleated RBC 0.000 (0.0-0.012) X10*3/uL Nucleated RBC % (auto) 0.0 (0.0-0.2) /100WBC PT 14.8 H (10.9-12.4) SEC INR 1.3 H (0.9-1.1) Sodium 142 (135-145) mmol/L Potassium 3.6 (3.3-5.1) mmol/L Chloride 102 (96-108) mmol/L Carbon Dioxide 30 H (22-29) mmol/L Anion Gap 14 (12-20) BUN 11 (9-16) mg/dL Creatinine 0.63 (0.5-1.4) mg/dL Estim Creat Clear Calc 88.7 Estimated GFR > 60 Random Glucose 201 H (60-115) mg/dL Lactic Acid (0.5-2.0) mmol/L Calcium 8.5 (8.4-10.2) mg/dL Magnesium 1.5 L (1.6-2.6) mg/dL Total Bilirubin 0.5 (0.0-1.0) mg/dL Direct Bilirubin 0.2 (0.0-0.5) mg/dL AST 18 (5-37) U/L ALT < 6 (0-40) U/L Alkaline Phosphatase 57 (39-117) U/L Troponin I High Sens < 2.7 D (<3.5-35.0) ng/L C-Reactive Protein 0.46 (< or = 0.50) mg/dL B-Natriuretic Peptide 94 (<100) pg/mL Total Protein 6.8 (6.5-8.0) g/dL Albumin 4.1 (3.5-5.0) g/dL Procalcitonin 0.02 ng/mL Urine Color Yellow Urine Appearance Cloudy Urine pH 7.5 (5.0-9.0) Ur Specific [place] 1.020 (1.005-1.025) Urine Protein 30 (1+) H (Neg-Trace) mg/dL Urine Glucose (UA) 100 H (Negative) mg/dL Urine Ketones 80 (Negative) mg/dL Urine Blood Large (3+) H (Negative) Urine Nitrite Negative (Negative) Ur Leukocyte Esterase Moderate (2+) H (Negative) Urine RBC >20 H (0-2) /HPF Urine WBC >50 H (0-5) /HPF Ur Squamous Epith Cells 0-2 (0-2) /HPF Urine Bacteria 4+ (None Seen) Hyaline Casts 0-2 (0-2) /LPF Ethyl Alcohol < 10 mg/dL Influenza Type A (PCR) NEGATIVE (Negative) Influenza Type B (PCR) NEGATIVE (Negative) RSV RNA Qual (PCR) NEGATIVE (Negative) SARS-CoV-2 RNA (RT-PCR) NEGATIVE (Negative) 10/26/24 Range/Units 20:59 WBC (4.8-10.8) X10*3/uL RBC (4.60-5.80) X10*6/uL Hgb (14.0-18.0) g/dl Hct (42.0-52.0) % MCV (80.0-98.0) fL MCH (27.0-33.0) pg MCHC (31.0-36.0) g/dl RDW (11.0-16.0) % Plt Count (160-400) X10*3/uL MPV (9.4-12.4) fL Immature Gran % (Auto) (0.0-0.4) % Neut % (Auto) (45-73) % Lymph % (Auto) (20-40) % [place] % (Auto) (2-11) % Eos % (Auto) (0-4) % Baso % (Auto) (0-2) % Lymph # (Auto) (1.2-4.9) X10*3/uL [place] # (Auto) (0.1-1.2) X10*3/uL Eos # (Auto) (0.0-0.4) X10*3/uL Baso # (Auto) (0.0-0.2) X10*3/uL Abs Immat Gran (auto) (0.00-0.03) X10*3/uL Absolute Neuts (auto) (2.0-8.3) x10*3/uL Absolute Nucleated RBC (0.0-0.012) X10*3/uL Nucleated RBC % (auto) (0.0-0.2) /100WBC PT (10.9-12.4) SEC INR (0.9-1.1) Sodium (135-145) mmol/L Potassium (3.3-5.1) mmol/L Chloride (96-108) mmol/L Carbon Dioxide (22-29) mmol/L Anion Gap (12-20) BUN (9-16) mg/dL Creatinine (0.5-1.4) mg/dL Estim Creat Clear Calc Estimated GFR Random Glucose (60-115) mg/dL Lactic Acid 4.8 H* (0.5-2.0) mmol/L Calcium (8.4-10.2) mg/dL Magnesium (1.6-2.6) mg/dL Total Bilirubin (0.0-1.0) mg/dL Direct Bilirubin (0.0-0.5) mg/dL AST (5-37) U/L ALT (0-40) U/L Alkaline Phosphatase (39-117) U/L Troponin I High Sens (<3.5-35.0) ng/L C-Reactive Protein (< or = 0.50) mg/dL B-Natriuretic Peptide (<100) pg/mL Total Protein (6.5-8.0) g/dL Albumin (3.5-5.0) g/dL Procalcitonin ng/mL Urine Color Urine Appearance Urine pH (5.0-9.0) Ur Specific [place] (1.005-1.025) Urine Protein (Neg-Trace) mg/dL Urine Glucose (UA) (Negative) mg/dL Urine Ketones (Negative) mg/dL Urine Blood (Negative) Urine Nitrite (Negative) Ur Leukocyte Esterase (Negative) Urine RBC (0-2) /HPF Urine WBC (0-5) /HPF Ur Squamous Epith Cells (0-2) /HPF Urine Bacteria (None Seen) Hyaline Casts (0-2) /LPF Ethyl Alcohol mg/dL Influenza Type A (PCR) (Negative) Influenza Type B (PCR) (Negative) RSV RNA Qual (PCR) (Negative) SARS-CoV-2 RNA (RT-PCR) (Negative) Critical Care Time Critical Care Time Critical Care Time: Yes Total Critical Care Time: 35 Attestation: The patient was critically ill with a high probability of imminent or life-threatening deterioration. I spent greater than 30 minutes of discontinuous time evaluating the patient, delivering critical care at the bedside, discussing evaluating data with consultants. Critical care time does not include time spent performing separately billable procedures or teaching. Time spent performing critical care with 35 minutes. Discharge Plan Discharge Clinical Impression: Diverticulitis, Vomiting Patient Disposition: Admitted As Inpatient
[2024-10-26 12:03] LABS: MANUAL DIFF FLAG NO
[2024-10-26 12:08] LABS: INTERNATIONAL NORM RATIO 1.3 (0.9-1.1); Prothrombin Time 14.8 SEC (10.9-12.4)
[2024-10-26 12:14] LABS: Hematocrit 34.5 % (42.0-52.0); Hemoglobin 11.6 g/dl (14.0-18.0); Imm Gran Abs Auto 0.03 X10*3/uL (0.00-0.03); Imm Gran Pct Auto 0.3 % (0.0-0.4); Lymphocytes Absolute Auto 1.3 X10*3/uL (1.2-4.9); Mean Corpuscular HGB Conc 33.6 g/dl (31.0-36.0); Mean Corpuscular Hemoglobin 27.4 pg (27.0-33.0); Mean Corpuscular Volume 81.4 fL (80.0-98.0); NRBC Abs Auto 0.000 X10*3/uL (0.0-0.012); NRBC Pct Auto 0.0 /100WBC (0.0-0.2); Platelet Count 204 X10*3/uL (160-400); Red Blood Count 4.24 X10*6/uL (4.60-5.80); White Blood Count 9.0 X10*3/uL (4.8-10.8)
[2024-10-26 12:22] LABS: Alanine Aminotransferase < 6 U/L (0-40); Albumin Level 4.1 g/dL (3.5-5.0); Alkaline Phosphatase 57 U/L (39-117); Anion Gap 14 (12-20); Aspartate Amino Transferase 18 U/L (5-37); Blood Urea Nitrogen 11 mg/dL (9-16); Calcium 8.5 mg/dL (8.4-10.2); Carbon Dioxide 30 mmol/L (22-29); Chloride 102 mmol/L (96-108); Creatinine Clr Calc Pharmacy 88.7; Estimated Glomerular Filt Rate > 60; Magnesium 1.5 mg/dL (1.6-2.6); Potassium 3.6 mmol/L (3.3-5.1); Sodium 142 mmol/L (135-145); Total Protein 6.8 g/dL (6.5-8.0)
[2024-10-26 12:23] LABS: B Type Natriuretic Peptide 94 pg/mL (<100)
[2024-10-26 12:26] LABS: Troponin-I High Sensitivity < 2.7 ng/L (<3.5-35.0)
[2024-10-26 13:31] LABS: Resp Syncy Virus RNA Qual PCR NEGATIVE (Negative); SARS COV2 PCR INHOUSE NEGATIVE (Negative)
--- NOTE | 2024-10-26 13:39 | MHC.EDTECH ---
Patient was changed and repositioned. Bladder scanned the pt and it was 187 RN aware
[2024-10-26 15:21] LABS: Appearance Urine Cloudy; Glucose Urine UA 100 mg/dL (Negative); PH 7.5 (5.0-9.0); Specific Gravity - Urine 1.020 (1.005-1.025); UMIC TRIGGER UACC YES
[2024-10-26 15:26] LABS: UACC Culture Trigger YES
--- NOTE | 2024-10-26 19:24 | PC.NURSE ---
Pt c/o of nausea and vomitted
[2024-10-26] MEDS: iohexoL 350 MG/ML 100 ML INFUS..BTL IV (20:22)
[2024-10-26] MEDS: Lactated Ringers 1,000 ML 999 ML IV ×2 (21:06→22:20)
[2024-10-26] MEDS: metroNIDAZOLE/NS 500 MG/100 ML PIGGYBACK 100 MG IV (22:13)
[2024-10-26 22:24] LABS: Procalcitonin 0.02 ng/mL
--- NOTE | 2024-10-26 22:58 | PM.IMHP ---
History of Present Illness Date of Service: 10/26/24 Chief Complaint: Abdominal pain, vomiting This has a 74-year-old male with pertinent history of CVA status post residual right-sided hemiparesis and dysarthria, hypertension, ymp-[id number] diabetes mellitus who was brought to the emergency department for evaluation of abdominal pain and vomiting. Limited history from the patient due to dysarthria and confusion. History obtained with the help of niece. Patient's speech has never recovered since the stroke and he is hard to understand as per the niece. He started having nausea and vomiting 1 day prior to presentation. This continued and progressed on the day of presentation. He was also found to be confused by family members on the day of presentation. Had associated dizziness and weakness. Poor p.o. intake. Unable to obtain complete review of systems. In the emergency department, patient was found to be febrile and septic. Urine concerning for UTI and imaging with sigmoid diverticulitis. Review of Systems Review of Systems: Yes Unobtainable due to mental condition and Unobtainable due to mental status PMFSH Medical History Acute stroke due to ischemia Chronic back pain Type 2 diabetes mellitus without complications HTN (hypertension) Pertinent family history: Unable to obtain Social History Household Members: Family Housing: House Do you presently have visiting nurse or other home services: No Patient Tobacco Use Status: Never used Tobacco Advance Directives: No Advance Directives Information Provided: Yes Do you have a plan to hurt others: No Plan service: No Meds Allergies Allergy/AdvReac Type Severity Reaction Status Date / Time No Known Allergies Allergy Verified 10/26/24 11:34 Active Medications: Current Medications Acetaminophen (Acetaminophen 325 Mg Tablet) 650 mg PO Q6H PRN PRN Reason: Pain, Mild 1-3,fever,headache Calcium Carbonate (Calcium Carbonate 750 Mg Tab.Chew) 750 mg PO Q4H PRN PRN Reason: Heartburn Enoxaparin Sodium (Enoxaparin Sodium 40 Mg/0.4 Ml Syringe) 40 mg SUBCUT Q24H JACIEL Metronidazole (Flagyl) 500 mg in 100 mls @ 100 mls/hr IV ONCE ONE Stop: 10/26/24 23:01 Last Admin: 10/26/24 22:13 Dose: 100 mls/hr Lactated Ringer's (Lr) 1,000 mls @ 999 mls/hr IV .Q1H1M [facility] Stop: 10/26/24 23:15 Last Admin: 10/26/24 22:20 Dose: 999 mls/hr Magnesium Sulfate (Magnesium Sulfate/H2o) 2 gm in 50 mls @ 25 mls/hr IV ONCE ONE Stop: 10/27/24 00:54 Magnesium Hydroxide (Milk Of Magnesia 30 Ml Oral.Susp) 30 ml PO DAILY PRN PRN Reason: Constipation Melatonin (Melatonin 3 Mg Tablet) 6 mg PO BEDTIME PRN PRN Reason: Insomnia Sodium Chloride (0.9 % Sodium Chloride Flush 3 Ml Syringe) [facility] Medications ?Medication ?Instructions ?Recorded ?Confirmed ?Last Taken ?Type metoprolol succinate 25 mg 25 mg PO DAILY 07/11/24 07/12/24 Unknown History tablet,extended release 24 hr rosuvastatin 10 mg tablet 10 mg PO DAILY 07/11/24 07/12/24 Unknown History empagliflozin 10 mg tablet 10 mg PO DAILY 07/12/24 07/12/24 Unknown History (Jardiance) glimepiride 4 mg tablet 4 mg PO DAILY 07/12/24 07/12/24 Unknown History metformin 850 mg tablet 850 mg PO BID 07/12/24 07/12/24 Unknown History sitagliptin phosphate 25 mg tablet 25 mg PO DAILY 07/12/24 07/12/24 Unknown History (Januvia) valsartan 80 mg tablet 80 mg PO DAILY 07/12/24 07/12/24 Unknown History Physical Exam Vital Signs and Narrative: Vital Signs: Last Vital Signs Temp 100.1 F 10/26/24 21:52 Pulse 89 10/26/24 22:29 Resp 20 10/26/24 22:29 BP 111/59 L 10/26/24 22:29 Pulse Ox 93 10/26/24 22:29 O2 Del Method Room Air 10/26/24 22:29 BMI result Body Mass Index 25.2 Elderly ill-appearing male lying in bed in no distress Neck supple, no JVD Regular rate and rhythm, S1-S2 heard Regular breath sounds bilaterally, no wheezing or crackles appreciated Abdomen with mild tenderness, no rigidity Patient is awake, alert and oriented x1, dysarthric speech Psych: Normal mood No pedal edema Results Labs 10/26/24 11:55 10/26/24 11:55 Labs: Laboratory Results - last 24 hr 10/26/24 10/26/24 10/26/24 11:55 12:49 15:12 MCV 81.4 MCH 27.4 MCHC 33.6 RDW 13.7 Plt Count 204 MPV 10.6 Immature Gran % (Auto) 0.3 Neut % (Auto) 79.1 H Lymph % (Auto) 14.2 L Hood % (Auto) 6.1 Eos % (Auto) 0.1 Baso % (Auto) 0.2 Lymph # (Auto) 1.3 Hood # (Auto) 0.6 Eos # (Auto) 0.0 Baso # (Auto) 0.0 Abs Immat Gran (auto) 0.03 Absolute Neuts (auto) 7.2 Absolute Nucleated RBC 0.000 Nucleated RBC % (auto) 0.0 PT 14.8 H INR 1.3 H Anion Gap 14 Estim Creat Clear Calc 88.7 Estimated GFR > 60 Random Glucose 201 H Lactic Acid Calcium 8.5 Magnesium 1.5 L Total Bilirubin 0.5 Direct Bilirubin 0.2 AST 18 ALT < 6 Alkaline Phosphatase 57 C-Reactive Protein 0.46 B-Natriuretic Peptide 94 Total Protein 6.8 Albumin 4.1 Procalcitonin 0.02 Urine Color Yellow Urine Appearance Cloudy Urine pH 7.5 Ur Specific [place] 1.020 Urine Protein 30 (1+) H Urine Glucose (UA) 100 H Urine Ketones 80 Urine Blood Large (3+) H Urine Nitrite Negative Ur Leukocyte Esterase Moderate (2+) H Urine RBC >20 H Urine WBC >50 H Ur Squamous Epith Cells 0-2 Urine Bacteria 4+ Hyaline Casts 0-2 Ethyl Alcohol < 10 Influenza Type A (PCR) NEGATIVE Influenza Type B (PCR) NEGATIVE RSV RNA Qual (PCR) NEGATIVE SARS-CoV-2 RNA (RT-PCR) NEGATIVE 10/26/24 20:59 MCV MCH MCHC RDW Plt Count MPV Immature Gran % (Auto) Neut % (Auto) Lymph % (Auto) Hood % (Auto) Eos % (Auto) Baso % (Auto) Lymph # (Auto) Hood # (Auto) Eos # (Auto) Baso # (Auto) Abs Immat Gran (auto) Absolute Neuts (auto) Absolute Nucleated RBC Nucleated RBC % (auto) PT INR Anion Gap Estim Creat Clear Calc Estimated GFR Random Glucose Lactic Acid 4.8 H* Calcium Magnesium Total Bilirubin Direct Bilirubin AST ALT Alkaline Phosphatase C-Reactive Protein B-Natriuretic Peptide Total Protein Albumin Procalcitonin Urine Color Urine Appearance Urine pH Ur Specific [place] Urine Protein Urine Glucose (UA) Urine Ketones Urine Blood Urine Nitrite Ur Leukocyte Esterase Urine RBC Urine WBC Ur Squamous Epith Cells Urine Bacteria Hyaline Casts Ethyl Alcohol Influenza Type A (PCR) Influenza Type B (PCR) RSV RNA Qual (PCR) SARS-CoV-2 RNA (RT-PCR) Imaging Radiologist's Impressions: Impressions Head CT 10/26/24 10:55 IMPRESSION: No acute hemorrhage. Small vessel occlusive disease. Electronically signed by: Codey Lindsay MD 10/26/2024 12:25 PM EDT RP Assessment and Plan (1) Sepsis: Status: Acute (2) Diverticulitis: Status: Acute (3) Acute UTI: Status: Acute Plan This has a 74-year-old male with pertinent history of CVA status post residual right-sided hemiparesis and dysarthria, hypertension, [id number]-vqlynwywm diabetes mellitus who was brought to the emergency department for evaluation of abdominal pain and vomiting. #. Severe sepsis due to sigmoid diverticulitis and UTI: Resuscitated with IV crystalloids. Lactic acid and blood culture obtained. Noted previous urine culture with Enterococcus. Initiating IV vancomycin and Zosyn. NPO for bowel rest. #. Acute metabolic encephalopathy in the setting of above: Monitor mentation #. Acute lactic acidosis in the setting of sepsis #. Hypomagnesemia: Repleted #. Spd-zhkdgrv-xofoyrljt type 2 diabetes mellitus with hyperglycemia: Initiating Accu-Cheks with sliding scale insulin every 6 hours #. History of CVA: On aspirin and statin. Does have residual dysarthria #. Hypertension: Hold home antihypertensives in the setting of sepsis Med rec pending DVT prophylaxis: Lovenox Full code. Discussed with Samanta (patient's niece) Admit as inpatient and will require two night minimum hospital stay for IV antibiotics (as above), which is not possible in a lesser acute setting. Quality Stroke Does the patient have a stroke diagnosis?: No VTE Prior VTE?: No VTE Risk Level:: Medical - moderate - high VTE Device Contraindication: Treatment Not Indicated VTE Drug Contraindication: N/A - Med Ordered
[2024-10-26 23:05] LABS: Reflex Lactate? Lactic Acid Added
[2024-10-26] MEDS: Magnesium Sulfate/H2O 2 GM/50 ML PIGGYBACK IV (23:27)
[2024-10-26] MEDS: Lactated Ringers 1,000 ML 125 ML IVCONT (23:29)
[2024-10-27] VITALS (8 sets, daily range): BP systolic 101–139; BP diastolic 53–87; PULSE 77–90; RESP 14–24; TEMP 36.4–37.1; O2SAT 94–97; BMI 25.7
[2024-10-27 00:01] LABS: Glucose, Whole Blood 222 mg/dL (60-115)
[2024-10-27 00:16] LABS: ~Lactic Acid-LAB USE ONLY 4.3 mmol/L (0.5-2.0)
--- NOTE | 2024-10-27 00:52 | MHC.EDTECH ---
@00:15 The patient was changed out of his brief and blood was found, RN aware. The patient was completely changed, washed up, bedding changed, bed pads x2 placed under the patient. Boosted into a comfortable position. Call saeed placed within arms reach. BP cuff placed on Left arm, monitor leads reattached, SPo2 placed on finger. Patient is all set at this time.
[2024-10-27] MEDS: vancomycin HCL 1,000 MG, vancomycin HCL 750 MG in 0.9 % Sodium Chloride 500 ML 267.5 MG IV (01:08)
[2024-10-27 01:27] LABS: Reflex Lactate? 2 Y
--- NOTE | 2024-10-27 02:20 | PC.NURSE ---
Pt resting comfortably on stretcher. Callbell in reach. Medications administered per JUN.
[2024-10-27 02:47] LABS: ~Lactic Acid-LAB USE ONLY 3.2 mmol/L (0.5-2.0)
[2024-10-27 06:29] LABS: Glucose, Whole Blood 160 mg/dL (60-115)
--- NOTE | 2024-10-27 06:43 | PC.NURSE ---
Notified Dr. Reed that bladder scan 331ml. Pt has [place] cath in place with no urine in bag at this time. Per Dr. Reed, bladder scan q6hrs and st cath if >400ml.
--- NOTE | 2024-10-27 06:45 | PHA.PROG ---
Admission Date/Time: October 26, 2024 21:10 Indication: Sepsis Weight in k.678 kg Serum Creatinine - Last 168 Hours 10/26/24 11:55 Creatinine 0.63 Estimated CrCl and GFR - Last 168 Hours 10/26/24 11:55 Estim Creat Clear Calc 88.7 Estimated GFR > 60 Vancomycin Loading Dose: 1,750mg Current Vancomycin Dosing Regimen: 750mg q8h Vancomycin Monitoring using AUC goal of 400 - 600 range with trough as surrogate marker: 574, predicted trough 19.2 Date and Time for next Vancomycin Level to be drawn: 10/28 @ 9am Pharmacist Comments on Vancomycin Plan: Pt has good renal function and a more significant indication. Starting dosing more aggressively and can reduced once at steady state Vancomycin dosing will take advantage of ? as a clinical decision support tool that uses Bayesian modeling to calculate individual patient's pharmacokinetic parameters and forecast the patient's drug concentration time course with the target goal AUC 24 range of 400 - 600 mg/L/hr.
--- NOTE | 2024-10-27 07:00 | PC.NURSE ---
Pt O2 had dropped down to 89% while asleep. O2 applied and pt O2 sat up to 95-95. Slowly turned down O2 and shut off at 0645am. Pt maintaining sats of 94%RA
[2024-10-27 07:05] LABS: Hematocrit 29.6 % (42.0-52.0); Hemoglobin 10.0 g/dl (14.0-18.0); Mean Corpuscular HGB Conc 33.8 g/dl (31.0-36.0); Mean Corpuscular Hemoglobin 27.7 pg (27.0-33.0); Mean Corpuscular Volume 82.0 fL (80.0-98.0); NRBC Abs Auto 0.000 X10*3/uL (0.0-0.012); NRBC Pct Auto 0.0 /100WBC (0.0-0.2); Red Blood Count 3.61 X10*6/uL (4.60-5.80); White Blood Count 22.6 X10*3/uL (4.8-10.8)
[2024-10-27 07:11] LABS: Anion Gap 13 (12-20); Blood Urea Nitrogen 8 mg/dL (9-16); Calcium 7.7 mg/dL (8.4-10.2); Carbon Dioxide 23 mmol/L (22-29); Chloride 106 mmol/L (96-108); Creatinine Clr Calc Pharmacy 86.0; Estimated Glomerular Filt Rate > 60; Magnesium 1.6 mg/dL (1.6-2.6); Potassium 2.9 mmol/L (3.3-5.1); Sodium 139 mmol/L (135-145)
[2024-10-27 07:28] LABS: Band Neutrophils Percent 22 % (3-5); Lymphocytes Absolute Manual 0.5 X10*3/uL (1.2-4.9); Lymphocytes Percent Manual 2 % (20-40); Myelocytes Absolute 0.7 X10*/uL; Myelocytes Percent 3 %; Neutrophils Absolute Manual 21.5 X10*3/uL (2.0-8.3); Neutrophils Percent Manual 73 % (45-73)
[2024-10-27 07:31] LABS: Burr Cells 1+ (0-2) /OIF; RBC Morphology NOTED
[2024-10-27 07:33] LABS: Toxic Vacuolation PRESENT
--- NOTE | 2024-10-27 07:33 | PC.NURSE ---
critical labs called from lab - K is 2.9. Messages Ysabel Kinsey who directed me to Shara Kim. PA is aware of labs. LR is DCed. pt is sleeping. On RA -Spo2 94%.
[2024-10-27 07:34] LABS: Schistocytes 1+ (0-2) /OIF
[2024-10-27 07:48] LABS: Platelet Count 113 X10*3/uL (160-400)
[2024-10-27] MEDS: Potassium Chloride/H20 10 MEQ/100 ML PIGGYBACK 100 MEQ IV ×2 (08:27→10:04)
--- NOTE | 2024-10-27 08:43 | HO.PM.IMPN ---
Subjective Subjective Date of Service: 10/27/24 Interval History: Seen and examined this morning Interval history: Patient reports some abdominal pain, nonradiating.. Has also had some reflux. Last bowel movement 3 days ago. Has had nausea, vomiting yesterday.. He does also have a cough, but states this is chronic. Afebrile. Significant increase in WBC to 22.6 with 22% bandemia. Review of Systems Review of Systems: Yes all other systems are reviewed and are negative Physical Exam Vital Signs: Vital Signs: Last Vital Signs Temp 98.3 F 10/27/24 06:29 Pulse 90 10/27/24 08:17 Resp 19 10/27/24 08:17 BP 107/54 L 10/27/24 08:17 Pulse Ox 96 10/27/24 08:17 O2 Del Method Nasal Cannula 10/27/24 08:17 O2 Flow Rate 1 10/27/24 08:17 BMI result Body Mass Index 25.2 Constitutional - Awake and Alert, No apparent distress Eyes - PERRLA, EOMI Cardiovascular - S1S2, RRR, No edema Respiratory - Normal lung expansion, Normal respiratory effort, No respiratory distress, CTA bilaterally Gastrointestinal - mild ttp LLQ. ND; +BS; No rebound or guarding Extremities - no calf tenderness bilaterally, no swelling Skin - Warm/Dry Neurological - Alert & oriented x3 Psychological - Appropriate affect Objective Data Active Medications Acetaminophen (Acetaminophen 325 Mg Tablet) 650 mg PO Q6H PRN PRN Reason: Pain, Mild 1-3,fever,headache Calcium Carbonate (Calcium Carbonate 750 Mg Tab.Chew) 750 mg PO Q4H PRN PRN Reason: Heartburn Dextrose (Dextrose 50 % 25 Gm/50 Ml Syringe) 25 gm IVPUSH Q15M PRN; Protocol PRN Reason: per Hypoglycemia Standing Ord. Enoxaparin Sodium (Enoxaparin Sodium 40 Mg/0.4 Ml Syringe) 40 mg SUBCUT Q24H [facility] Glucose (Glucose Gel 15 Gm Gel..Gram.) 15 gm PO Q15M PRN; Protocol PRN Reason: per Hypoglycemia Standing Ord. Piperacillin Sod/Tazobactam (Sod 4.5 gm/ Sodium Chloride) 100 mls @ 200 mls/hr IV Q6H [facility] Last Infusion: 10/27/24 05:48 Dose: Infused Documented By: WILLY Vancomycin HCl 750 mg/ Sodium (Chloride) 265 mls @ 265 mls/hr IV Q8H [facility] Last Admin: 10/27/24 08:20 Dose: 265 mls/hr Documented By: DENIA Potassium Chloride (Potassium Chloride/H20) 10 meq in 100 mls @ 100 mls/hr IV Q1H [facility] Stop: 10/27/24 09:44 Last Admin: 10/27/24 08:27 Dose: 100 mls/hr Documented By: DENIA Insulin Human Lispro (Insulin Lispro 100 Unit/Ml 3 Ml Vial) 0 unit SUBCUT Q6H [facility]; Protocol Last Admin: 10/27/24 06:31 Dose: 2 unit Documented By: WILLY Magnesium Hydroxide (Milk Of Magnesia 30 Ml Oral.Susp) 30 ml PO DAILY PRN PRN Reason: Constipation Melatonin (Melatonin 3 Mg Tablet) 6 mg PO BEDTIME PRN PRN Reason: Insomnia Ondansetron HCl (Ondansetron Hcl 4 Mg/2 Ml Vial) 4 mg IVPUSH Q8H PRN PRN Reason: Nausea and Vomiting Pharmacy Consult (Consult Rx Vancomycin Dosing) 1 each MISCELLANE DAILY PRN PRN Reason: Consult order Sodium Chloride (0.9 % Sodium Chloride Flush 3 Ml Syringe) 3 ml IVFLUSH QSHIFT [facility] Last Admin: 10/27/24 07:03 Dose: Not Given Documented By: DENIA Non-Admin Reason: IV Running Labs 10/27/24 06:17 10/27/24 06:17 Labs: Laboratory Results - last 24 hr 10/26/24 10/26/24 10/26/24 11:55 12:49 15:12 MCV 81.4 MCH 27.4 MCHC 33.6 RDW 13.7 Plt Count 204 MPV 10.6 Immature Gran % (Auto) 0.3 Neut % (Auto) 79.1 H Lymph % (Auto) 14.2 L [place] % (Auto) 6.1 Eos % (Auto) 0.1 Baso % (Auto) 0.2 Lymph # (Auto) 1.3 [place] # (Auto) 0.6 Eos # (Auto) 0.0 Baso # (Auto) 0.0 Abs Immat Gran (auto) 0.03 Absolute Neuts (auto) 7.2 Absolute Nucleated RBC 0.000 Nucleated RBC % (auto) 0.0 Neutrophils % (Manual) Band Neutrophils % Lymphocytes % (Manual) Myelocytes % Abs Neuts (Manual) Lymphocytes # (Manual) Myelocytes # Toxic Vacuolation Platelet Estimate Plt Morphology Comment RBC Morphology Sandra Cells Schistocytes PT 14.8 H INR 1.3 H Anion Gap 14 Estim Creat Clear Calc 88.7 Estimated GFR > 60 POC Glucose Random Glucose 201 H Lactic Acid Lactic Acid F/U @ 2Hr Lactic Acid F/U @ 4Hr Calcium 8.5 Magnesium 1.5 L Total Bilirubin 0.5 Direct Bilirubin 0.2 AST 18 ALT < 6 Alkaline Phosphatase 57 C-Reactive Protein 0.46 B-Natriuretic Peptide 94 Total Protein 6.8 Albumin 4.1 Procalcitonin 0.02 Urine Color Yellow Urine Appearance Cloudy Urine pH 7.5 Ur Specific [place] 1.020 Urine Protein 30 (1+) H Urine Glucose (UA) 100 H Urine Ketones 80 Urine Blood Large (3+) H Urine Nitrite Negative Ur Leukocyte Esterase Moderate (2+) H Urine RBC >20 H Urine WBC >50 H Ur Squamous Epith Cells 0-2 Urine Bacteria 4+ Hyaline Casts 0-2 Ethyl Alcohol < 10 Influenza Type A (PCR) NEGATIVE Influenza Type B (PCR) NEGATIVE RSV RNA Qual (PCR) NEGATIVE SARS-CoV-2 RNA (RT-PCR) NEGATIVE 10/26/24 10/26/24 10/26/24 20:59 23:25 23:55 MCV MCH MCHC RDW Plt Count MPV Immature Gran % (Auto) Neut % (Auto) Lymph % (Auto) [place] % (Auto) Eos % (Auto) Baso % (Auto) Lymph # (Auto) [place] # (Auto) Eos # (Auto) Baso # (Auto) Abs Immat Gran (auto) Absolute Neuts (auto) Absolute Nucleated RBC Nucleated RBC % (auto) Neutrophils % (Manual) Band Neutrophils % Lymphocytes % (Manual) Myelocytes % Abs Neuts (Manual) Lymphocytes # (Manual) Myelocytes # Toxic Vacuolation Platelet Estimate Plt Morphology Comment RBC Morphology [place] Cells Schistocytes PT INR Anion Gap Estim Creat Clear Calc Estimated GFR POC Glucose 222 H Random Glucose Lactic Acid 4.8 H* Lactic Acid F/U @ 2Hr 4.3 H* Lactic Acid F/U @ 4Hr Calcium Magnesium Total Bilirubin Direct Bilirubin AST ALT Alkaline Phosphatase C-Reactive Protein B-Natriuretic Peptide Total Protein Albumin Procalcitonin Urine Color Urine Appearance Urine pH Ur Specific [place] Urine Protein Urine Glucose (UA) Urine Ketones Urine Blood Urine Nitrite Ur Leukocyte Esterase Urine RBC Urine WBC Ur Squamous Epith Cells Urine Bacteria Hyaline Casts Ethyl Alcohol Influenza Type A (PCR) Influenza Type B (PCR) RSV RNA Qual (PCR) SARS-CoV-2 RNA (RT-PCR) 10/27/24 10/27/24 10/27/24 01:51 06:17 06:26 MCV 82.0 MCH 27.7 MCHC 33.8 RDW 14.2 Plt Count 113 L D MPV 10.7 Immature Gran % (Auto) Cancelled Neut % (Auto) Cancelled Lymph % (Auto) Cancelled [place] % (Auto) Cancelled Eos % (Auto) Cancelled Baso % (Auto) Cancelled Lymph # (Auto) Cancelled [place] # (Auto) Cancelled Eos # (Auto) Cancelled Baso # (Auto) Cancelled Abs Immat Gran (auto) Cancelled Absolute Neuts (auto) Cancelled Absolute Nucleated RBC 0.000 Nucleated RBC % (auto) 0.0 Neutrophils % (Manual) 73 Band Neutrophils % 22 H Lymphocytes % (Manual) 2 L Myelocytes % 3 Abs Neuts (Manual) 21.5 H Lymphocytes # (Manual) 0.5 L Myelocytes # 0.7 Toxic Vacuolation PRESENT Platelet Estimate DECREASED Plt Morphology Comment NORMAL RBC Morphology NOTED [place] Cells 1+ (0-2) Schistocytes 1+ (0-2) PT INR Anion Gap 13 Estim Creat Clear Calc 86.0 Estimated GFR > 60 POC Glucose 160 H Random Glucose 184 H Lactic Acid Lactic Acid F/U @ 2Hr Lactic Acid F/U @ 4Hr 3.2 H* Calcium 7.7 L D Magnesium 1.6 Total Bilirubin Direct Bilirubin AST ALT Alkaline Phosphatase C-Reactive Protein B-Natriuretic Peptide Total Protein Albumin Procalcitonin Urine Color Urine Appearance Urine pH Ur Specific [place] Urine Protein Urine Glucose (UA) Urine Ketones Urine Blood Urine Nitrite Ur Leukocyte Esterase Urine RBC Urine WBC Ur Squamous Epith Cells Urine Bacteria Hyaline Casts Ethyl Alcohol Influenza Type A (PCR) Influenza Type B (PCR) RSV RNA Qual (PCR) SARS-CoV-2 RNA (RT-PCR) Assessment and Plan (1) Diverticulitis: Status: Acute (2) Acute UTI: Status: Acute (3) Severe sepsis: Status: Acute (4) Bandemia: Status: Acute Plan 72-year-old male with 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, hypertension, [id number] type 2 diabetes admitted to the hospital for severe sepsis due to sigmoid diverticulitis and UTI Severe sepsis due to sigmoid diverticulitis and UTI Initially febrile with tachycardia and lactic acidosis improved following IV fluids This morning with significantly increased WBC of 22 with 22% bandemia General surgery consulted CT abdomen/pelvis with contrast ordered for re-evaluation IV vancomycin and Zosyn Advanced to clears per General surgery Follow CBC, cultures Acute metabolic encephalopathy Due to above, mentation improving Acute hypokalemia repleted, follow Acute hypomagnesemia Repleted [id number]-[id number] type 2 diabetes with hyperglycemia Advanced to diabetic diet as tolerated POC glucose, SSI Hypertension Blood pressure is soft, hold antihypertensives for now Fecal impaction Fleets If diarrhea, check c diff and gi panel DVT prophylaxis: lovenox Full code Requires ongoing inpatient stay due to severe sepsis due to sigmoid diverticulitis and UTI requiring IV antibiotics and close monitoring of hemodynamics as well as expert consultation Quality Stroke Does the patient have a stroke diagnosis?: No VTE Prior VTE?: No VTE Risk Level:: Medical - moderate - high VTE Device Contraindication: Treatment Not Indicated VTE Drug Contraindication: N/A - Med Ordered
[2024-10-27 09:07] LABS: Glucose, Whole Blood 165 mg/dL (60-115)
[2024-10-27] MEDS: iohexoL 350 MG/ML 100 ML INFUS..BTL IV (11:40)
--- NOTE | 2024-10-27 11:55 | PC.NURSE ---
300ml urine output in [place] cath bag
[2024-10-27 12:16] LABS: Glucose, Whole Blood 153 mg/dL (60-115)
--- NOTE | 2024-10-27 12:28 | P.CONGS_ITS ---
History of Present Illness Consult details Consult date: 10/27/24 Narrative: 72-year-old male with a history of CVA, and some right sided hemiparesis and dysarthria, diabetes, hypertension, admitted via the emergency room yesterday because of abdominal pain and vomiting. The patient really does not provide much with regards to history although he answers simple questions. He says he still has some pain in the abdomen although this is not bad today. His CAT scan yesterday showed findings suggestive of uncomplicated sigmoid diverticulitis. He also was diagnosed to have a urinary tract infection with large amounts of WBC and RBC. He ruled in for sepsis His WBC has increased to 22 this morning so I have been asked to evaluate. He does answer some questions although he has some slurring of speech. He admits to having abdominal pain although he says that this is not bad. He denies burning with urination. Review of Systems 2 Review of Systems: Difficult in view of patient's history of CVA, speech Constitutional: Constitutional: Denies chills and Denies fever(s) Gastrointestinal: Gastrointestinal: Reports abdominal pain PMFSH Past Medical History Medical History (Updated 10/28/24 @ 09:36 by Oz Tijerina MD) Leukocytosis Acute stroke due to ischemia Chronic back pain Type 2 diabetes mellitus without complications HTN (hypertension) Social History Social History Household Members: Family Housing: Apartment Do you presently have visiting nurse or other home services: Yes (PT) Patient Tobacco Use Status: Never used Tobacco service: No Meds Allergies Allergy/AdvReac Type Severity Reaction Status Date / Time No Known Allergies Allergy Verified 10/26/24 11:34 Active Medications: Current Medications Acetaminophen (Acetaminophen 325 Mg Tablet) 650 mg PO Q6H PRN PRN Reason: Pain, Mild 1-3,fever,headache Calcium Carbonate (Calcium Carbonate 750 Mg Tab.Chew) 750 mg PO Q4H PRN PRN Reason: Heartburn Dextrose (Dextrose 50 % 25 Gm/50 Ml Syringe) 25 gm IVPUSH Q15M PRN; Protocol PRN Reason: per Hypoglycemia Standing Ord. Enoxaparin Sodium (Enoxaparin Sodium 40 Mg/0.4 Ml Syringe) 40 mg SUBCUT Q24H [facility] Last Admin: 10/27/24 10:06 Dose: 40 mg Glucose (Glucose Gel 15 Gm Gel..Gram.) 15 gm PO Q15M PRN; Protocol PRN Reason: per Hypoglycemia Standing Ord. Piperacillin Sod/Tazobactam (Sod 4.5 gm/ Sodium Chloride) 100 mls @ 200 mls/hr IV Q6H [facility] Last Infusion: 10/27/24 10:37 Dose: Infused Vancomycin HCl 750 mg/ Sodium (Chloride) 265 mls @ 265 mls/hr IV Q8H [facility] Last Infusion: 10/27/24 09:28 Dose: Infused Insulin Human Lispro (Insulin Lispro 100 Unit/Ml 3 Ml Vial) 0 unit SUBCUT Q6H [facility]; Protocol Last Admin: 10/27/24 12:24 Dose: Not Given Magnesium Hydroxide (Milk Of Magnesia 30 Ml Oral.Susp) 30 ml PO DAILY PRN PRN Reason: Constipation Melatonin (Melatonin 3 Mg Tablet) 6 mg PO BEDTIME PRN PRN Reason: Insomnia Ondansetron HCl (Ondansetron Hcl 4 Mg/2 Ml Vial) 4 mg IVPUSH Q8H PRN PRN Reason: Nausea and Vomiting Pharmacy Consult (Consult Rx Vancomycin Dosing) 1 each MISCELLANE DAILY PRN PRN Reason: Consult order Sodium Chloride (0.9 % Sodium Chloride Flush 3 Ml Syringe) [facility] Last Admin: 10/27/24 07:03 Dose: Not Given Home Medications ?Medication ?Instructions ?Recorded ?Confirmed ?Last Taken ?Type metoprolol succinate 25 mg 25 mg PO DAILY 07/11/24 Unknown History tablet,extended release 24 hr acetaminophen 500 mg tablet 1,000 mg PO BID 10/28/24 0 10/28/24 Unknown History gabapentin 100 mg capsule 100 mg PO TID 10/28/2410/28 Unknown History insulin lispro 100 unit/mL See Protocol subcut TIDAC 0 10/28/24 10/28/24 Unknown History subcutaneous pen lidocaine 4 % topical patch 1 patch topical DAILY 10/1610/28/24 Unknown History metformin 1,000 mg tablet 1,000 mg PO BID 10/28/24 Unknown History polyvinyl alcohol 1.4 % eye drops 2 drp ophthalmic (ey e) QID 10/28/24 10/28/24 Unknown History (Artificial Tears (polyvinyl alcohol)) sennosides 8.6 mg-docusate sodium 1 tab PO BID constip ation 10/28/24 10/28/24 Unknown History 50 mg tablet (Stimulant Laxative Plus) sitagliptin phosphate 50 mg tablet 50 mg PO DAILY 10/1610/28/24 Unknown History (Januvia) Physical Exam 2 Vital Signs: Vital Signs: Last Vital Signs Temp 98.1 F 10/27/24 12:06 Pulse 88 10/27/24 12:06 Resp 18 10/27/24 12:06 BP 109/59 L 10/27/24 12:06 Pulse Ox 94 10/27/24 12:06 O2 Del Method Room Air 10/27/24 12:06 O2 Flow Rate 1 10/27/24 08:17 BMI result Body Mass Index 25.2 Const: General: comfortable and no acute distress Resp: Effort & Inspection: normal respiratory effort Cardio: Rate: regular rate GI: Other: Rectal exam shows stool in the rectal vault, not impacted, no palpable masses, amounts of air in the rectal vault, no tenderness, no blood Palpation (GI): Soft to palpation, not firm, Tenderness to palpation present (GI) (Seems to have mild tenderness on lower abdomen is), no guarding and not rigid Results Labs 10/29/24 05:57 10/29/24 05:57 Labs: Abnormal lab results 10/26/24 10/26/24 10/26/24 Range/Units 15:12 20:59 23:25 WBC (4.8-10.8) X10*3/uL RBC (4.60-5.80) X10*6/uL Hgb (14.0-18.0) g/dl Hct (42.0-52.0) % Plt Count (160-400) X10*3/uL Band Neutrophils % (3-5) % Lymphocytes % (Manual) (20-40) % Abs Neuts (Manual) (2.0-8.3) X10*3/uL Lymphocytes # (Manual) (1.2-4.9) X10*3/uL Potassium (3.3-5.1) mmol/L BUN (9-16) mg/dL POC Glucose (60-115) mg/dL Random Glucose (60-115) mg/dL Lactic Acid 4.8 H* (0.5-2.0) mmol/L Lactic Acid F/U @ 2Hr 4.3 H* (0.5-2.0) mmol/L Lactic Acid F/U @ 4Hr (0.5-2.0) mmol/L Calcium (8.4-10.2) mg/dL Urine Protein 30 (1+) H (Neg-Trace) mg/dL Urine Glucose (UA) 100 H (Negative) mg/dL Urine Blood Large (3+) H (Negative) Ur Leukocyte Esterase Moderate (2+) H (Negative) Urine RBC >20 H (0-2) /HPF Urine WBC >50 H (0-5) /HPF 10/26/24 10/27/24 10/27/24 Range/Units 23:55 01:51 06:17 WBC 22.6 H (4.8-10.8) X10*3/uL RBC 3.61 L (4.60-5.80) X10*6/uL Hgb 10.0 L (14.0-18.0) g/dl Hct 29.6 L (42.0-52.0) % Plt Count 113 L D (160-400) X10*3/uL Band Neutrophils % 22 H (3-5) % Lymphocytes % (Manual) 2 L (20-40) % Abs Neuts (Manual) 21.5 H (2.0-8.3) X10*3/uL Lymphocytes # (Manual) 0.5 L (1.2-4.9) X10*3/uL Potassium 2.9 L* (3.3-5.1) mmol/L BUN 8 L (9-16) mg/dL POC Glucose 222 H (60-115) mg/dL Random Glucose 184 H (60-115) mg/dL Lactic Acid (0.5-2.0) mmol/L Lactic Acid F/U @ 2Hr (0.5-2.0) mmol/L Lactic Acid F/U @ 4Hr 3.2 H* (0.5-2.0) mmol/L Calcium 7.7 L D (8.4-10.2) mg/dL Urine Protein (Neg-Trace) mg/dL Urine Glucose (UA) (Negative) mg/dL Urine Blood (Negative) Ur Leukocyte Esterase (Negative) Urine RBC (0-2) /HPF Urine WBC (0-5) /HPF 10/27/24 10/27/24 10/27/24 Range/Units 06:26 09:03 12:13 WBC (4.8-10.8) X10*3/uL RBC (4.60-5.80) X10*6/uL Hgb (14.0-18.0) g/dl Hct (42.0-52.0) % Plt Count (160-400) X10*3/uL Band Neutrophils % (3-5) % Lymphocytes % (Manual) (20-40) % Abs Neuts (Manual) (2.0-8.3) X10*3/uL Lymphocytes # (Manual) (1.2-4.9) X10*3/uL Potassium (3.3-5.1) mmol/L BUN (9-16) mg/dL POC Glucose 160 H 165 H 153 H (60-115) mg/dL Random Glucose (60-115) mg/dL Lactic Acid (0.5-2.0) mmol/L Lactic Acid F/U @ 2Hr (0.5-2.0) mmol/L Lactic Acid F/U @ 4Hr (0.5-2.0) mmol/L Calcium (8.4-10.2) mg/dL Urine Protein (Neg-Trace) mg/dL Urine Glucose (UA) (Negative) mg/dL Urine Blood (Negative) Ur Leukocyte Esterase (Negative) Urine RBC (0-2) /HPF Urine WBC (0-5) /HPF Short CBC 10/27/24 Range/Units 06:17 WBC 22.6 H (4.8-10.8) X10*3/uL Hgb 10.0 L (14.0-18.0) g/dl Hct 29.6 L (42.0-52.0) % Plt Count 113 L D (160-400) X10*3/uL BMP 10/27/24 06:17 Sodium 139 Potassium 2.9 L* Chloride 106 Carbon Dioxide 23 BUN 8 L Creatinine 0.65 Calcium 7.7 L D Urine 10/26/24 Range/Units 15:12 Urine Color Yellow Urine Appearance Cloudy Urine pH 7.5 (5.0-9.0) Ur Specific [place] 1.020 (1.005-1.025) Urine Protein 30 (1+) H (Neg-Trace) mg/dL Urine Glucose (UA) 100 H (Negative) mg/dL All other labs normal. Assessment and Plan (1) Diverticulitis: Status: Acute He presented with the abdominal pain yesterday. Abdominal exam is currently benign. He admits to mild tenderness. He has no guarding or rebound His white count however more elevated today. I have reviewed his CAT scan from yesterday and this shows some mild thickening of the proximal sigmoid with some stranding consistent with the acute diverticulitis. He had a repeat CAT scan just now because of his elevated WBC. There is no report yet but on review, this seems to be similar to yesterday I would recommend limiting his oral intake tube clear liquids for now. He is already on IV antibiotics with Zosyn and this should provide adequate coverage. He should also be continued to managed for his urinary tract infection. I will follow along while he is in the hospital. Procedures Date of Service Date of Service: 10/29/24
--- NOTE | 2024-10-27 14:20 | PM.EVENT ---
Event Note Date of Service: 10/28/24 Event Note: Seen and again on afternoon rounds He says he has minimal abdominal pain Cat scan report says about cholecystitis He does not have significant tenderness or Hall's sign on the right upper quadrant Abdomen remained soft and benign Leukocytosis may be multifactorial with different sources of infection Continue IV antibiotics Has multiple medical problems Hemodynamically stable and not septic looking We will continue to follow closely Time Spent With Patient Time: Total time managing care of this patient today ____ minutes.
[2024-10-27] MEDS: 0.9 % Sodium Chloride Flush 3 ML SYRINGE IVFLUSH ×2 (17:26→23:37)
[2024-10-27 17:29] LABS: Glucose, Whole Blood 174 mg/dL (60-115)
--- NOTE | 2024-10-27 19:01 | PC.NURSE ---
Fleets given per order. Had Large, soft, brown stool.
[2024-10-27] MEDS: Lactated Ringers 1,000 ML 100 ML IVCONT (19:13)
[2024-10-28 00:51] LABS: Glucose, Whole Blood 110 mg/dL (60-115)
[2024-10-28 04:00] VITALS: BP 132/66; PULSE 79; RESP 18; TEMP 36.3; O2SAT 95
[2024-10-28] MEDS: Lactated Ringers 1,000 ML 100 ML IVCONT ×2 (05:51→17:04)
[2024-10-28 06:19] LABS: Glucose, Whole Blood 78 mg/dL (60-115)
[2024-10-28 06:28] LABS: Creatinine Clr Calc Pharmacy 58.2; Estimated Glomerular Filt Rate > 60
[2024-10-28 07:26] VITALS: BP 138/65; PULSE 76; RESP 12; TEMP 37; O2SAT 95
--- NOTE | 2024-10-28 08:42 | HO.PM.IMPN ---
Subjective Subjective Date of Service: 10/29/24 Interval History: Seen and examined this morning Interval history:No abd pain, n/v, no fever, wbc is trending down Physical Exam Vital Signs: Vital Signs: Last Vital Signs Temp 98.6 F 10/28/24 07:26 Pulse 76 10/28/24 07:26 Resp 12 10/28/24 07:26 BP 138/65 10/28/24 07:26 Pulse Ox 95 10/28/24 07:26 O2 Del Method Room Air 10/28/24 07:26 O2 Flow Rate 1 10/27/24 08:17 BMI result Body Mass Index 25.7 Constitutional - Awake and Alert, No apparent distress Eyes - PERRLA, EOMI Cardiovascular - S1S2, RRR, No edema Respiratory - Normal lung expansion, Normal respiratory effort, No respiratory distress, CTA bilaterally Gastrointestinal - mild ttp LLQ. ND; +BS; No rebound or guarding Extremities - no calf tenderness bilaterally, no swelling Skin - Warm/Dry Neurological - Alert & oriented x3 Psychological - Appropriate affect Const: Other: Constitutional - Awake and Alert, No apparent distress , Alert & oriented x3 Eyes - PERRLA, EOMI Cardiovascular - S1S2, RRR, No edema Respiratory - Normal lung expansion, Normal respiratory effort, No respiratory distress, CTA bilaterally Gastrointestinal - mild ttp LLQ. ND; +BS; No rebound or guarding Extremities - no calf tenderness bilaterally, no swelling Skin - Warm/Dry Neurological - NF Psychological - Appropriate affect Objective Data Active Medications Acetaminophen (Acetaminophen 325 Mg Tablet) 650 mg PO Q6H PRN PRN Reason: Pain, Mild 1-3,fever,headache Calcium Carbonate (Calcium Carbonate 750 Mg Tab.Chew) 750 mg PO Q4H PRN PRN Reason: Heartburn Dextrose (Dextrose 50 % 25 Gm/50 Ml Syringe) 25 gm IVPUSH Q15M PRN; Protocol PRN Reason: per Hypoglycemia Standing Ord. Enoxaparin Sodium (Enoxaparin Sodium 40 Mg/0.4 Ml Syringe) 40 mg SUBCUT Q24H [facility] Last Admin: 10/27/24 10:06 Dose: 40 mg Documented By: DENIA Glucose (Glucose Gel 15 Gm Gel..Gram.) 15 gm PO Q15M PRN; Protocol PRN Reason: per Hypoglycemia Standing Ord. Piperacillin Sod/Tazobactam (Sod 4.5 gm/ Sodium Chloride) 100 mls @ 200 mls/hr IV Q6H [facility] Last Infusion: 10/28/24 05:10 Dose: Infused Documented By: DONNA Lactated Ringer's (Lr) 1,000 mls @ 100 mls/hr IVCONT .Q10H [facility] Last Admin: 10/28/24 05:51 Dose: 100 mls/hr Documented By: DONNA Vancomycin HCl 1,250 mg/ (Sodium Chloride) 250 mls @ 166.667 mls/hr IV Q24H [facility] Insulin Human Lispro (Insulin Lispro 100 Unit/Ml 3 Ml Vial) 0 unit SUBCUT Q6H [facility]; Protocol Last Admin: 10/28/24 06:12 Dose: Not Given Documented By: DONNA Non-Admin Reason: No Insulin Coverage Comments: poc 78 Magnesium Hydroxide (Milk Of Magnesia 30 Ml Oral.Susp) 30 ml PO DAILY PRN PRN Reason: Constipation Melatonin (Melatonin 3 Mg Tablet) 6 mg PO BEDTIME PRN PRN Reason: Insomnia Ondansetron HCl (Ondansetron Hcl 4 Mg/2 Ml Vial) 4 mg IVPUSH Q8H PRN PRN Reason: Nausea and Vomiting Last Admin: 10/27/24 18:05 Dose: 4 mg Documented By: RANDALL Pharmacy Consult (Consult Rx Vancomycin Dosing) 1 each MISCELLANE DAILY PRN PRN Reason: Consult order Sodium Biphosphate/Sodium Phosphate (Sodium Phosphate,[place]-Dibasic 133 Ml Enema) 133 ml AL ONCE PRN PRN Reason: fecal impaction Last Admin: 10/27/24 18:21 Dose: 133 ml Documented By: KATY Sodium Chloride (0.9 % Sodium Chloride Flush 3 Ml Syringe) 3 ml IVFLUSH QSHIFT [facility] Last Admin: 10/27/24 23:37 Dose: 3 ml Documented By: DONNA Labs 10/29/24 05:57 10/29/24 05:57 Labs: Laboratory Results - last 24 hr 10/27/24 10/27/24 10/27/24 09:03 12:13 17:23 Hold Purple Top Estim Creat Clear Calc Estimated GFR POC Glucose 165 H 153 H 174 H Vancomycin Trough 10/28/24 10/28/24 10/28/24 00:44 05:34 06:09 Hold Purple Top SEE NOTE Estim Creat Clear Calc 58.2 Estimated GFR > 60 POC Glucose 110 78 Vancomycin Trough 10/28/24 07:02 Hold Purple Top Estim Creat Clear Calc Estimated GFR POC Glucose Vancomycin Trough 23.3 H Microbiology Microbiology Results: Microbiology 10/26/24 20:59 Blood Culture - Preliminary Blood - Venous Prelim: GNR Gram Stain only 10/26/24 20:59 Blood Culture - Preliminary Blood - Venous Prelim: GNR Gram Stain only 10/26/24 Unknown Urine Culture - Preliminary Urine clean catch - Clean Catch Midstream Culture in progress. Assessment and Plan (1) Diverticulitis: Status: Acute (2) Acute UTI: Status: Acute (3) Severe sepsis: Status: Acute (4) Bandemia: Status: Acute Plan 72-year-old male with 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, hypertension, [id number] type 2 diabetes admitted to the hospital for severe sepsis due to sigmoid diverticulitis and UTI Severe sepsis due to sigmoid diverticulitis and UTI, spsis resolved Initially febrile with tachycardia and lactic acidosis improved following IV fluids WBC trending down now 23, Blood cultures = GNR CT suggest possible cholecystitis, but no other symptoms of cholecystitis ? need for HIDA General surgery following Continue IV vancomycin and Zosyn, consider d/c vanco Advance diet GNR bacteremia, likely GI source Continue Zosyn, and follow sensitivity Acute metabolic encephalopathy d/t above, improved Acute hypokalemia replete, check level Acute hypOmagnesemia Repleted, check Txh-kfrdqug-yngpkremd type 2 diabetes with hyperglycemia Advanced to diabetic diet as tolerated POC glucose, SSI Hypertension toprolol Fecal impaction Fleets DVT prophylaxis: lovenox Full code Requires ongoing inpatient stay due to severe sepsis due to sigmoid diverticulitis and UTI requiring IV antibiotics and close monitoring of hemodynamics as well as expert consultation Quality Stroke Does the patient have a stroke diagnosis?: No VTE Prior VTE?: No VTE Risk Level:: Medical - moderate - high VTE Device Contraindication: Treatment Not Indicated VTE Drug Contraindication: N/A - Med Ordered
[2024-10-28 08:49] LABS: Hematocrit 31.2 % (42.0-52.0); Hemoglobin 10.1 g/dl (14.0-18.0); Mean Corpuscular HGB Conc 32.4 g/dl (31.0-36.0); Mean Corpuscular Hemoglobin 27.4 pg (27.0-33.0); Mean Corpuscular Volume 84.6 fL (80.0-98.0); NRBC Abs Auto 0.000 X10*3/uL (0.0-0.012); NRBC Pct Auto 0.0 /100WBC (0.0-0.2); Platelet Count 127 X10*3/uL (160-400); Red Blood Count 3.69 X10*6/uL (4.60-5.80)
[2024-10-28 08:57] LABS: WBC ABN SCTR FOR CBC 1; White Blood Count 33.6 X10*3/uL (4.8-10.8)
[2024-10-28 09:09] LABS: Anion Gap 14 (12-20); Carbon Dioxide 24 mmol/L (22-29); Chloride 110 mmol/L (96-108); Magnesium 1.6 mg/dL (1.6-2.6); Potassium 3.7 mmol/L (3.3-5.1); Sodium 144 mmol/L (135-145)
[2024-10-28] MEDS: 0.9 % Sodium Chloride Flush 3 ML SYRINGE IVFLUSH ×3 (09:20→23:48)
--- NOTE | 2024-10-28 09:35 | PM.PNGS ---
Subjective Subjective Date of Service: 10/28/24 Interval history: States he feels well this morning Has minimal pain No nausea currently No events overnight Physical Exam Vital Signs: Vital Signs: Last Vital Signs Temp 98.6 F 10/28/24 07:26 Pulse 76 10/28/24 07:26 Resp 12 10/28/24 07:26 BP 138/65 10/28/24 07:26 Pulse Ox 95 10/28/24 07:26 O2 Del Method Room Air 10/28/24 07:26 O2 Flow Rate 1 10/27/24 08:17 BMI result Body Mass Index 25.7 Const: Other: Looks well, answering questions well although with dysarthria General: comfortable and no acute distress Resp: Effort & Inspection: normal respiratory effort Cardio: Rate: regular rate GI: Other: Minimal tenderness to deep palpation around the umbilicus and a little bit to the left but Hall's sign Palpation (GI): Soft to palpation, not firm and no guarding Objective Data Active Medications Acetaminophen (Acetaminophen 325 Mg Tablet) 650 mg PO Q6H PRN PRN Reason: Pain, Mild 1-3,fever,headache Calcium Carbonate (Calcium Carbonate 750 Mg Tab.Chew) 750 mg PO Q4H PRN PRN Reason: Heartburn Dextrose (Dextrose 50 % 25 Gm/50 Ml Syringe) 25 gm IVPUSH Q15M PRN; Protocol PRN Reason: per Hypoglycemia Standing Ord. Enoxaparin Sodium (Enoxaparin Sodium 40 Mg/0.4 Ml Syringe) 40 mg SUBCUT Q24H [facility] Last Admin: 10/28/24 09:20 Dose: 40 mg Documented By: KATY Glucose (Glucose Gel 15 Gm Gel..Gram.) 15 gm PO Q15M PRN; Protocol PRN Reason: per Hypoglycemia Standing Ord. Piperacillin Sod/Tazobactam (Sod 4.5 gm/ Sodium Chloride) 100 mls @ 200 mls/hr IV Q6H [facility] Last Infusion: 10/28/24 05:10 Dose: Infused Documented By: DONNA Lactated Ringer's (Lr) 1,000 mls @ 100 mls/hr IVCONT .Q10H [facility] Last Admin: 10/28/24 05:51 Dose: 100 mls/hr Documented By: DONNA Vancomycin HCl 1,250 mg/ (Sodium Chloride) 250 mls @ 166.667 mls/hr IV Q24H [facility] Insulin Human Lispro (Insulin Lispro 100 Unit/Ml 3 Ml Vial) 0 unit SUBCUT Q6H [facility]; Protocol Last Admin: 10/28/24 06:12 Dose: Not Given Documented By: DONNA Non-Admin Reason: No Insulin Coverage Comments: poc 78 Magnesium Hydroxide (Milk Of Magnesia 30 Ml Oral.Susp) 30 ml PO DAILY PRN PRN Reason: Constipation Melatonin (Melatonin 3 Mg Tablet) 6 mg PO BEDTIME PRN PRN Reason: Insomnia Ondansetron HCl (Ondansetron Hcl 4 Mg/2 Ml Vial) 4 mg IVPUSH Q8H PRN PRN Reason: Nausea and Vomiting Last Admin: 10/27/24 18:05 Dose: 4 mg Documented By: RANDALL Pharmacy Consult (Consult Rx Vancomycin Dosing) 1 each MISCELLANE DAILY PRN PRN Reason: Consult order Sodium Biphosphate/Sodium Phosphate (Sodium Phosphate,[place]-Dibasic 133 Ml Enema) 133 ml LA ONCE PRN PRN Reason: fecal impaction Last Admin: 10/27/24 18:21 Dose: 133 ml Documented By: KATY Sodium Chloride (0.9 % Sodium Chloride Flush 3 Ml Syringe) [facility] Admin: 10/28/24 09:20 Dose: 3 ml Documented By: KATY Labs 10/28/24 05:34 10/28/24 05:34 Labs: Laboratory Results - last 24 hr 10/27/24 10/27/24 10/28/24 12:13 17:23 00:44 MCV MCH MCHC RDW Plt Count MPV Immature Gran % (Auto) Neut % (Auto) Lymph % (Auto) [place] % (Auto) Eos % (Auto) Baso % (Auto) Lymph # (Auto) [place] # (Auto) Eos # (Auto) Baso # (Auto) Abs Immat Gran (auto) Absolute Neuts (auto) Absolute Nucleated RBC Nucleated RBC % (auto) Hold Purple Top Anion Gap Estim Creat Clear Calc Estimated GFR POC Glucose 153 H 174 H 110 Magnesium Vancomycin Trough 10/28/24 10/28/24 10/28/24 05:34 06:09 07:02 MCV 84.6 MCH 27.4 MCHC 32.4 RDW 14.6 Plt Count 127 L MPV 11.7 Immature Gran % (Auto) Cancelled Neut % (Auto) Cancelled Lymph % (Auto) Cancelled [place] % (Auto) Cancelled Eos % (Auto) Cancelled Baso % (Auto) Cancelled Lymph # (Auto) Cancelled [place] # (Auto) Cancelled Eos # (Auto) Cancelled Baso # (Auto) Cancelled Abs Immat Gran (auto) Cancelled Absolute Neuts (auto) Cancelled Absolute Nucleated RBC 0.000 Nucleated RBC % (auto) 0.0 Hold Purple Top SEE NOTE Anion Gap 14 Estim Creat Clear Calc 58.2 Estimated GFR > 60 POC Glucose 78 Magnesium 1.6 Vancomycin Trough 23.3 H Microbiology Microbiology Results: Microbiology 10/26/24 20:59 Blood Culture - Preliminary Blood - Venous Gram negative prabha 10/26/24 20:59 Blood Culture - Preliminary Blood - Venous Gram negative prabha 10/26/24 Unknown Urine Culture - Preliminary Urine clean catch - Clean Catch Midstream Culture in progress. Procedures Date of Service Date of Service: 10/28/24 Progress Note: A&P Assessment and plan (1) Leukocytosis: Status: Acute Assessment and Plan: CAT scan showed question of sigmoid diverticulitis, also with gallbladder distention Currently without Hall's sign, looks well and comfortable, not septic looking Abdomen is soft and benign, with minimal tenderness Uncertain as to why WBC is still up Question of leukemoid reaction? He looks comfortable and well Afebrile Continue IV antibiotics Okay to have clear liquids We will follow closely Time Spent With Patient Time: Total time managing care of this patient today ____ minutes. Quality Stroke Does the patient have a stroke diagnosis?: No VTE Prior VTE?: No VTE Risk Level:: Medical - moderate - high VTE Device Contraindication: Treatment Not Indicated VTE Drug Contraindication: N/A - Med Ordered
[2024-10-28 09:48] LABS: Band Neutrophils Percent 22 % (3-5); Monocytes Absolute Manual 0.7 X10*3/uL (0.1-1.2); Monocytes Percent Manual 2 % (2-11); Neutrophils Absolute Manual 32.9 X10*3/uL (2.0-8.3); Neutrophils Percent Manual 76 % (45-73)
[2024-10-28 09:51] LABS: RBC Morphology NOTED
[2024-10-28 09:52] LABS: Acanthocytes 1+ (0-2) /OIF; Burr Cells 2+ (3-5) /OIF; Dohle Bodies PRESENT; Schistocytes 1+ (0-2) /OIF
[2024-10-28 12:53] LABS: Glucose, Whole Blood 216 mg/dL (60-115)
--- NOTE | 2024-10-28 14:18 | PHA.MEDREC ---
Addendum entered by Emi Malagon RPh 10/28/24 14:44: REVIEWED BY [facility] Original Note: Pharmacy Consult ? Medication Reconciliation Pharmacy has completed the medication reconciliation. Spoke with patient's niece to confirm medications. Patient was recently discharged from a rehab facility and was sent home with medications. His niece went over the discharge list with me and reports everything on it is what he has been receiving at home.
[2024-10-28 15:03] VITALS: BP 159/82; PULSE 75; RESP 18; TEMP 35.9; O2SAT 98
--- NOTE | 2024-10-28 16:06 | MHC.CM.PN ---
CM MET WITH PT WITH A BILLET HEATER HE REPORTS HE LIVES WITH HIS TWO SISTERS WHO ASSIST WITH HIS CARE AND HAS HOME PT, HE DOES NOT KNOW THE AGENCY HE REPORTS AFTER HIS LAST ADMISSION, HE WENT TO [id number], BUT THEY DISCHARGED HIM BEFORE HE WAS WELL ENOUGH AND HE HAS HAD DIFFICULTY AT HOME HE USES A WALKER BUT REPORTS THE BEDROOMS AND BATHROOM ARE ON THE SECOND FLOOR, SO HE JUST STAYS IN HIS ROOM. PTS NIECE/HCP, JOYCE,REPORTS THE PT HAS BEEN HAVING A HARD TIME SHE SAYS THE PT WENT TO [place] AND THEN [facility], AND EVEN THOUGH THE PT AND FAMILY TOLD THEM HE WAS NOT READY, THEY DISCHARGED HIM WITH [facility] SHE SAYS THE PT STILL DOES NOT HAVE A PCP IN THIS AREA AND SEES HIS CT PCP VIRTUALLY, SHE DOES NOT HAVE THE NAME WITH HER PT IS ACTIVE WITH [facility] FOR PT AND OT, BUT STILL HAS NOT SEEN A SPEECH THERAPIST NIECE REPORTS THEY FEEL HE WILL NEED TO GO TO [facility] FROM HERE SHE SAYS BESIDES HIS [employer] MCR, HE ALSO HAS MH, SHE IS JUST NOT SURE WHAT KIND IMM DELIVERED DCP TBD PENDING PT LINDSEY HENDERSON RECOMMENDED, [facility] PREFERRED, BUT NOT [facility]
[2024-10-28] MEDS: Metoprolol Succinate ER 25 MG TAB.ER.24H PO (16:50)
[2024-10-28] MEDS: Artificial Tears 15 ML DROPS 2 DROP EYE-BOTH ×2 (16:50→20:28)
[2024-10-28 17:07] LABS: Glucose, Whole Blood 188 mg/dL (60-115)
--- NOTE | 2024-10-28 18:10 | HE.PHANOTE ---
RE VANCO DOSING PT HAD ELEVATED TROUGH YESTERDAY OF 23.3 AND DOSING WAS CHANGED FROM Q8 HOURS TO Q24 HOURS. SINCE TROUGH YESTERDAY HE HASN'T HAD ANOTHER DOSE AND TROUGH NOW IS 13.6. BECAUSE HE HAS SEPSIS I AM GOING TO MOVE TO 1 GM Q12 H DOSING AND OBTAIN A NEW TROUGH FIRST THING IN THE MORNING AFTER HE HAS HAD ONE DOSE. WILL ALSO CHECK RENAL FUNCTION IN THE MORNING WE'VE SEEN A SLIGHT CHANGE IN RENAL FUNCTION OVER THE PAST 48 HOURS.
[2024-10-28 19:33] VITALS: BP 155/77; PULSE 88; RESP 18; TEMP 36.3; O2SAT 93
[2024-10-28 23:52] LABS: Glucose, Whole Blood 155 mg/dL (60-115)
[2024-10-29] MEDS: Lactated Ringers 1,000 ML 100 ML IVCONT ×2 (02:56→11:53)
[2024-10-29 03:25] VITALS: BP 163/81; PULSE 55; RESP 18; TEMP 36.1; O2SAT 94
[2024-10-29 05:25] LABS: Glucose, Whole Blood 147 mg/dL (60-115)
[2024-10-29 06:13] LABS: Hematocrit 30.4 % (42.0-52.0); Hemoglobin 10.3 g/dl (14.0-18.0); Mean Corpuscular HGB Conc 33.9 g/dl (31.0-36.0); Mean Corpuscular Hemoglobin 27.5 pg (27.0-33.0); Mean Corpuscular Volume 81.3 fL (80.0-98.0); NRBC Abs Auto 0.000 X10*3/uL (0.0-0.012); NRBC Pct Auto 0.0 /100WBC (0.0-0.2); Platelet Count 121 X10*3/uL (160-400); Red Blood Count 3.74 X10*6/uL (4.60-5.80); White Blood Count 23.9 X10*3/uL (4.8-10.8)
[2024-10-29 06:29] LABS: Anion Gap 11 (12-20); Blood Urea Nitrogen 12 mg/dL (9-16); Calcium 7.6 mg/dL (8.4-10.2); Carbon Dioxide 26 mmol/L (22-29); Chloride 111 mmol/L (96-108); Creatinine Clr Calc Pharmacy 67.3; Estimated Glomerular Filt Rate > 60; Magnesium 1.7 mg/dL (1.6-2.6); Potassium 3.2 mmol/L (3.3-5.1); Sodium 145 mmol/L (135-145)
[2024-10-29 06:41] VITALS: BP 152/70; PULSE 57; RESP 15; TEMP 36.5; O2SAT 94
[2024-10-29 07:10] LABS: Glucose, Whole Blood 152 mg/dL (60-115)
[2024-10-29] MEDS: 0.9 % Sodium Chloride Flush 3 ML SYRINGE IVFLUSH ×3 (07:47→20:41)
--- NOTE | 2024-10-29 07:50 | P.PNGS_ITS ---
Subjective Subjective Date of Service: 10/29/24 <Priya Romero PA-C - Last Filed: 10/29/24 07:59> 10/29/24 <Oz Tijerina MD - Last Filed: 10/29/24 08:13> Interval history: States he feels better this morning. Reports gas discomfort but denies significant pain. <Priya Romero PA-C - Last Filed: 10/29/24 07:59> Physical Exam 2 Vital Signs: Vital Signs: Last Vital Signs Temp 97.7 F 10/29/24 06:41 Pulse 57 10/29/24 06:41 Resp 15 10/29/24 06:41 BP 152/70 H 10/29/24 06:41 Pulse Ox 94 10/29/24 06:41 O2 Del Method Room Air 10/29/24 06:41 O2 Flow Rate 1 10/27/24 08:17 BMI result Body Mass Index 25.7 <Priya Romero PA-C - Last Filed: 10/29/24 07:59> Const: General: comfortable, no acute distress and alert <Priya Roemro PA-C - Last Filed: 10/29/24 07:59> Orientation/consciousness: patient oriented x3 <Priya Romero PA-C - Last Filed: 10/29/24 07:59> Resp: Effort & Inspection: normal respiratory effort <CÉSAR Albert Last Filed: 10/29/24 07:59> GI: Inspection: No distended <Priya Romero PA-C - Last Filed: 10/29/24 07:59> Palpation (GI): Soft to palpation, nontender, no guarding and not rigid < Priya Romero PA-C - Last Filed: 10/29/24 07:59> Skin: General skin exam: no rashes or lesions noted <CÉSAR Albert Last Filed: 10/29/24 07:59> Neuro: General: patient oriented x3 and moves all extremities <CÉSAR Albert Last Filed: 10/29/24 07:59> Extrem: General: No no clubbing, cyanosis or edema <CÉSAR Albert Last Filed: 10/29/24 07:59> Objective Data Active Medications Acetaminophen (Acetaminophen 325 Mg Tablet) 650 mg PO Q6H PRN PRN Reason: Pain, Mild 1-3,fever,headache Artificial Tears (Artificial Tears 15 Ml Drops) 2 drop EYE-BOTH QID [facility] Last Admin: 10/28/24 20:28 Dose: 2 drop Documented By: RANDALL Aspirin (Aspirin Enteric Coated 81 Mg Tablet.Dr) 81 mg PO DAILY [facility] Atorvastatin Calcium (Atorvastatin Calcium 40 Mg Tablet) 40 mg PO BEDTIME [facility] Last Admin: 10/28/24 20:29 Dose: 40 mg Documented By: RANDALL Calcium Carbonate (Calcium Carbonate 750 Mg Tab.Chew) 750 mg PO Q4H PRN PRN Reason: Heartburn Dextrose (Dextrose 50 % 25 Gm/50 Ml Syringe) 25 gm IVPUSH Q15M PRN; Protocol PRN Reason: per Hypoglycemia Standing Ord. Enoxaparin Sodium (Enoxaparin Sodium 40 Mg/0.4 Ml Syringe) 40 mg SUBCUT Q24H [facility] Last Admin: 10/28/24 09:20 Dose: 40 mg Documented By: KATY Gabapentin (Gabapentin 100 Mg Capsule) 100 mg PO TID [facility] Last Admin: 10/28/24 20:29 Dose: 100 mg Documented By: RANDALL Glucose (Glucose Gel 15 Gm Gel..Gram.) 15 gm PO Q15M PRN; Protocol PRN Reason: per Hypoglycemia Standing Ord. Piperacillin Sod/Tazobactam (Sod 4.5 gm/ Sodium Chloride) 100 mls @ 200 mls/hr IV Q6H [facility] Last Infusion: 10/29/24 05:18 Dose: Infused Documented By: RANDALL Lactated Ringer's (Lr) 1,000 mls @ 100 mls/hr IVCONT .Q10H [facility] Last Admin: 10/29/24 02:56 Dose: 100 mls/hr Documented By: RANDALL Vancomycin HCl 750 mg/ Sodium (Chloride) 265 mls @ 265 mls/hr IV Q12H [facility] Last Admin: 10/29/24 07:44 Dose: 265 mls/hr Documented By: MINDY Insulin Human Lispro (Insulin Lispro 100 Unit/Ml 3 Ml Vial) 0 unit SUBCUT TIDAC [facility]; Protocol Last Admin: 10/29/24 07:44 Dose: 2 unit Documented By: MINDY Lidocaine (Lidocaine 4 % Patch Adh..Patch) 1 patch TRANSDERMA DAILY [facility]; Protocol Magnesium Hydroxide (Milk Of Magnesia 30 Ml Oral.Susp) 30 ml PO DAILY PRN PRN Reason: Constipation Melatonin (Melatonin 3 Mg Tablet) 6 mg PO BEDTIME PRN PRN Reason: Insomnia Metoprolol Succinate (Metoprolol Succinate Er 25 Mg Tab.Er.24h) 25 mg PO DAILY [facility]; Protocol Last Admin: 10/28/24 16:50 Dose: 25 mg Documented By: KATY Ondansetron HCl (Ondansetron Hcl 4 Mg/2 Ml Vial) 4 mg IVPUSH Q8H PRN PRN Reason: Nausea and Vomiting Last Admin: 10/28/24 18:03 Dose: 4 mg Documented By: KATY Pharmacy Consult (Consult Rx Vancomycin Dosing) 1 each MISCELLANE DAILY PRN PRN Reason: Consult order Senna/Docusate Sodium (Sennosides/Docusate Sodium Tablet) 1 tab PO BID [facility] Last Admin: 10/28/24 20:28 Dose: 1 tab Documented By: RANDALL Sitagliptin Phosphate (Sitagliptin Phosphate 50 Mg Tablet) 50 mg PO DAILY [facility] Last Admin: 10/28/24 16:50 Dose: 50 mg Documented By: KATY Sodium Biphosphate/Sodium Phosphate (Sodium Phosphate,[place]-Dibasic 133 Ml Enema) 133 ml ND ONCE PRN PRN Reason: fecal impaction Last Admin: 10/27/24 18:21 Dose: 133 ml Documented By: KATY Sodium Chloride (0.9 % Sodium Chloride Flush 3 Ml Syringe) 3 ml IVFLUSH QSHIFT [facility] Last Admin: 10/29/24 07:47 Dose: 3 ml Documented By: MINDY <Priya Romero PA-C - Last Filed: 10/29/24 07:59> Labs CBC & Chem 7: 10/29/24 05:57 10/29/24 05:57 <Priya Romero PA-C - Last Filed: 10/29/24 07:59> Labs: Laboratory Results - last 24 hr 10/28/24 10/28/24 10/28/24 05:34 12:48 17:03 MCV 84.6 MCH 27.4 MCHC 32.4 RDW 14.6 Plt Count 127 L MPV 11.7 Immature Gran % (Auto) Cancelled Neut % (Auto) Cancelled Lymph % (Auto) Cancelled [place] % (Auto) Cancelled Eos % (Auto) Cancelled Baso % (Auto) Cancelled Lymph # (Auto) Cancelled [place] # (Auto) Cancelled Eos # (Auto) Cancelled Baso # (Auto) Cancelled Abs Immat Gran (auto) Cancelled Absolute Neuts (auto) Cancelled Absolute Nucleated RBC 0.000 Nucleated RBC % (auto) 0.0 Neutrophils % (Manual) 76 H Band Neutrophils % 22 H Monocytes % (Manual) 2 Abs Neuts (Manual) 32.9 H Monocytes # (Manual) 0.7 Dohle Bodies PRESENT Platelet Estimate DECREASED Plt Morphology Comment NORMAL RBC Morphology NOTED [place] Cells 2+ (3-5) Acanthocytes (Spur) 1+ (0-2) Schistocytes 1+ (0-2) Anion Gap 14 Estim Creat Clear Calc Estimated GFR POC Glucose 216 H 188 H Random Glucose Calcium Magnesium 1.6 Random Vancomycin 10/28/24 10/28/24 10/29/24 17:21 23:49 05:17 MCV MCH MCHC RDW Plt Count MPV Immature Gran % (Auto) Neut % (Auto) Lymph % (Auto) [place] % (Auto) Eos % (Auto) Baso % (Auto) Lymph # (Auto) [place] # (Auto) Eos # (Auto) Baso # (Auto) Abs Immat Gran (auto) Absolute Neuts (auto) Absolute Nucleated RBC Nucleated RBC % (auto) Neutrophils % (Manual) Band Neutrophils % Monocytes % (Manual) Abs Neuts (Manual) Monocytes # (Manual) Dohle Bodies Platelet Estimate Plt Morphology Comment RBC Morphology Sandra Cells Acanthocytes (Spur) Schistocytes Anion Gap Estim Creat Clear Calc Estimated GFR POC Glucose 155 H 147 H Random Glucose Calcium Magnesium Random Vancomycin 13.6 L 10/29/24 10/29/24 05:57 07:06 MCV 81.3 MCH 27.5 MCHC 33.9 RDW 14.2 Plt Count 121 L MPV 11.3 Immature Gran % (Auto) Neut % (Auto) Lymph % (Auto) [place] % (Auto) Eos % (Auto) Baso % (Auto) Lymph # (Auto) [place] # (Auto) Eos # (Auto) Baso # (Auto) Abs Immat Gran (auto) Absolute Neuts (auto) Absolute Nucleated RBC 0.000 Nucleated RBC % (auto) 0.0 Neutrophils % (Manual) Band Neutrophils % Monocytes % (Manual) Abs Neuts (Manual) Monocytes # (Manual) Dohle Bodies Platelet Estimate Plt Morphology Comment RBC Morphology [place]iff Cells Acanthocytes (Spur) Schistocytes Anion Gap 11 L Estim Creat Clear Calc 67.3 Estimated GFR > 60 POC Glucose 152 H Random Glucose 161 H Calcium 7.6 L Magnesium 1.7 Random Vancomycin 17.9 <Priya Romero PA-C - Last Filed: 10/29/24 07:59> Microbiology Microbiology Results: Microbiology 10/26/24 Unknown Urine Culture - Preliminary Urine clean catch - Clean Catch Midstream Gram negative prabha 10/26/24 20:59 Blood Culture - Preliminary Blood - Venous Gram negative prabha 10/26/24 20:59 Blood Culture - Preliminary Blood - Venous Gram negative prabha <Priya Romero PA-C - Last Filed: 10/29/24 07:59> Procedures Date of Service Date of Service: 10/29/24 <Priya Romero PA-C - Last Filed: 10/29/24 07:59> 10/29/24 <Oz Tijerina MD - Last Filed: 10/29/24 08:13> Progress Note: A&P Assessment and plan (1) Diverticulitis: Status: Acute <Priya Romero PA-C - Last Filed: 10/29/24 07:59> Assessment and Plan: Says he feels well States he is comfortable Denies abdominal pain No nausea or vomiting Abdomen is soft, benign and nontender Okay to advance diet as tolerated Seen and examined independently <Oz Tijerina MD - Last Filed: 10/29/24 08:13> Assessment and Plan: Repeat CT scan showed question of sigmoid diverticulitis, also with gallbladder distention WBC now downtrending and significantly improved to 23 today. He denies abd pain. He is clinically appearing well. Abdomen is very soft and benign, nontender. Continue IV antibiotics Can begin to advance diet. <Priya Romero PA-C - Last Filed: 10/29/24 07:59> Time Spent With Patient Time: Total time managing care of this patient today ____ minutes. <Priya Romero PA-C - Last Filed: 10/29/24 07:59> Quality Stroke Does the patient have a stroke diagnosis?: No <Priya Romero PA-C - Last Filed: 10/29/24 07:59> VTE Prior VTE?: No <Priya Romero PA-C - Last Filed: 10/29/24 07:59> VTE Risk Level:: Medical - moderate - high <Priya Romero PA-C - Last Filed: 10/29/24 07:59> VTE Device Contraindication: Treatment Not Indicated <Priya Romero PA-C - Last Filed: 10/29/24 07:59> VTE Drug Contraindication: N/A - Med Ordered <Priya Romero PA-C - Last Filed: 10/29/24 07:59>
[2024-10-29] MEDS: Aspirin Enteric Coated 81 MG TABLET.DR PO (09:02)
[2024-10-29 09:08] VITALS: BP 169/74; PULSE 52
[2024-10-29] MEDS: Metoprolol Succinate ER 25 MG TAB.ER.24H PO (09:08)
[2024-10-29] MEDS: Artificial Tears 15 ML DROPS 2 DROP EYE-BOTH ×4 (09:20→20:42)
[2024-10-29] MEDS: Potassium Chloride Packet 20 MEQ PACKET 40 MEQ PO (09:26)
[2024-10-29 11:21] LABS: Glucose, Whole Blood 168 mg/dL (60-115)
[2024-10-29 15:08] VITALS: BP 138/64; PULSE 80; RESP 18; TEMP 36.2; O2SAT 97
--- NOTE | 2024-10-29 15:49 | MHC.CM.PN ---
PER ROUNDS PT NOT MEDICALLY READY FOR DC DC HARDY REMAINS DC PLAN STR
[2024-10-29 16:23] LABS: Glucose, Whole Blood 205 mg/dL (60-115)
[2024-10-29 19:05] VITALS: BP 120/60; PULSE 92; RESP 18; TEMP 36.1; O2SAT 96
[2024-10-29 20:33] LABS: Glucose, Whole Blood 197 mg/dL (60-115)
[2024-10-30 03:34] VITALS: BP 165/77; PULSE 59; RESP 16; TEMP 36; O2SAT 96
[2024-10-30 06:45] LABS: Anion Gap 11 (12-20); Blood Urea Nitrogen 7 mg/dL (9-16); Calcium 7.8 mg/dL (8.4-10.2); Carbon Dioxide 29 mmol/L (22-29); Chloride 109 mmol/L (96-108); Creatinine Clr Calc Pharmacy 77.6; Estimated Glomerular Filt Rate > 60; Magnesium 1.7 mg/dL (1.6-2.6); Potassium 3.3 mmol/L (3.3-5.1); Sodium 146 mmol/L (135-145)
[2024-10-30 06:52] VITALS: BP 160/72; PULSE 54; RESP 16; TEMP 36.4; O2SAT 96
[2024-10-30 06:59] LABS: Hematocrit 31.7 % (42.0-52.0); Hemoglobin 10.8 g/dl (14.0-18.0); Mean Corpuscular HGB Conc 34.1 g/dl (31.0-36.0); Mean Corpuscular Hemoglobin 27.7 pg (27.0-33.0); Mean Corpuscular Volume 81.3 fL (80.0-98.0); NRBC Abs Auto 0.020 X10*3/uL (0.0-0.012); NRBC Pct Auto 0.2 /100WBC (0.0-0.2); Platelet Count 134 X10*3/uL (160-400); Red Blood Count 3.90 X10*6/uL (4.60-5.80); White Blood Count 12.9 X10*3/uL (4.8-10.8)
[2024-10-30 07:16] LABS: Glucose, Whole Blood 134 mg/dL (60-115)
[2024-10-30 08:36] VITALS: BP 164/80; PULSE 65; RESP 16; TEMP 36.6; O2SAT 95
--- NOTE | 2024-10-30 09:08 | P.PNIM_ITS ---
Subjective Subjective Date of Service: 10/30/24 Interval History: Seen and examined this morning Interval history:Pt reports feeling better, no n/v, he feels better than yesterday, and tolerating present diiet, wbc is trending down Physical Exam 2 Vital Signs: Vital Signs: Last Vital Signs Temp 97.8 F 10/30/24 08:36 Pulse 65 10/30/24 08:36 Resp 16 10/30/24 08:36 BP 164/80 H 10/30/24 08:36 Pulse Ox 95 10/30/24 08:36 O2 Del Method Room Air 10/30/24 08:36 O2 Flow Rate 1 10/27/24 08:17 BMI result Body Mass Index 25.7 Objective Data Active Medications Acetaminophen (Acetaminophen 325 Mg Tablet) 650 mg PO Q6H PRN PRN Reason: Pain, Mild 1-3,fever,headache Artificial Tears (Artificial Tears 15 Ml Drops) 2 drop EYE-BOTH QID [facility] Last Admin: 10/29/24 20:42 Dose: 2 drop Documented By: RANDALL Aspirin (Aspirin Enteric Coated 81 Mg Tablet.) 81 mg PO DAILY [facility] Last Admin: 10/29/24 09:02 Dose: 81 mg Documented By: MINDY Atorvastatin Calcium (Atorvastatin Calcium 40 Mg Tablet) 40 mg PO BEDTIME [facility] Last Admin: 10/29/24 20:42 Dose: 40 mg Documented By: RANDALL Calcium Carbonate (Calcium Carbonate 750 Mg Tab.Chew) 750 mg PO Q4H PRN PRN Reason: Heartburn Ceftriaxone Sodium (Ceftriaxone Sodium 2 Gm Vial) 2 gm IVPUSH Q24H [facility] Last Admin: 10/29/24 16:37 Dose: 2 gm Documented By: MINDY Dextrose (Dextrose 50 % 25 Gm/50 Ml Syringe) 25 gm IVPUSH Q15M PRN; Protocol PRN Reason: per Hypoglycemia Standing Ord. Enoxaparin Sodium (Enoxaparin Sodium 40 Mg/0.4 Ml Syringe) 40 mg SUBCUT Q24H [facility] Last Admin: 10/29/24 09:02 Dose: 40 mg Documented By: MINDY Gabapentin (Gabapentin 100 Mg Capsule) 100 mg PO TID [facility] Last Admin: 10/29/24 20:42 Dose: 100 mg Documented By: RANDALL Glucose (Glucose Gel 15 Gm Gel..Gram.) 15 gm PO Q15M PRN; Protocol PRN Reason: per Hypoglycemia Standing Ord. Insulin Human Lispro (Insulin Lispro 100 Unit/Ml 3 Ml Vial) 0 unit SUBCUT QIDACHS [facility]; Protocol Last Admin: 10/30/24 07:17 Dose: Not Given Documented By: MINDY Non-Admin Reason: No Insulin Coverage Lidocaine (Lidocaine 4 % Patch Adh..Patch) 1 patch TRANSDERMA DAILY [facility]; Protocol Last Admin: 10/29/24 09:02 Dose: Not Given Documented By: MINDY Non-Admin Reason: Patient Refused Magnesium Hydroxide (Milk Of Magnesia 30 Ml Oral.Susp) 30 ml PO DAILY PRN PRN Reason: Constipation Melatonin (Melatonin 3 Mg Tablet) 6 mg PO BEDTIME PRN PRN Reason: Insomnia Metoprolol Succinate (Metoprolol Succinate Er 25 Mg Tab.Er.24h) 25 mg PO DAILY [facility]; Protocol Last Admin: 10/29/24 09:08 Dose: 25 mg Documented By: MINDY Comments: administered per Dr Jeff Ondansetron HCl (Ondansetron Hcl 4 Mg/2 Ml Vial) 4 mg IVPUSH Q8H PRN PRN Reason: Nausea and Vomiting Last Admin: 10/28/24 18:03 Dose: 4 mg Documented By: KATY Pharmacy Consult (Consult Rx Vancomycin Dosing) 1 each MISCELLANE DAILY PRN PRN Reason: Consult order Senna/Docusate Sodium (Sennosides/Docusate Sodium Tablet) 1 tab PO BID [facility] Last Admin: 10/29/24 20:42 Dose: 1 tab Documented By: RANDALL Sitagliptin Phosphate (Sitagliptin Phosphate 50 Mg Tablet) 50 mg PO DAILY [facility] Last Admin: 10/29/24 09:02 Dose: 50 mg Documented By: MINDY Sodium Biphosphate/Sodium Phosphate (Sodium Phosphate,[place]-Dibasic 133 Ml Enema) 133 ml MA ONCE PRN PRN Reason: fecal impaction Last Admin: 10/27/24 18:21 Dose: 133 ml Documented By: KATY Sodium Chloride (0.9 % Sodium Chloride Flush 3 Ml Syringe) 3 ml IVFLUSH QSHIFT [facility] Last Admin: 10/29/24 20:41 Dose: 3 ml Documented By: RANDALL Labs 10/30/24 06:17 10/30/24 06:17 Labs: Laboratory Results - last 24 hr 10/29/24 10/29/24 10/29/24 11:05 16:16 20:26 MCV MCH MCHC RDW Plt Count MPV Absolute Nucleated RBC Nucleated RBC % (auto) Anion Gap Estim Creat Clear Calc Estimated GFR POC Glucose 168 H 205 H 197 H Random Glucose Calcium Magnesium Random Vancomycin 10/30/24 10/30/24 06:17 07:12 MCV 81.3 MCH 27.7 MCHC 34.1 RDW 14.2 Plt Count 134 L MPV 11.1 Absolute Nucleated RBC 0.020 H Nucleated RBC % (auto) 0.2 Anion Gap 11 L Estim Creat Clear Calc 77.6 Estimated GFR > 60 POC Glucose 134 H Random Glucose 136 H Calcium 7.8 L Magnesium 1.7 Random Vancomycin 10.8 L Microbiology Microbiology Results: Microbiology 10/26/24 20:59 Blood Culture - Final Blood - Venous Escherichia coli 10/26/24 20:59 Blood Culture - Final Blood - Venous Escherichia coli 10/26/24 Unknown Urine Culture - Final Urine clean catch - Clean Catch Midstream Escherichia coli Assessment and Plan (1) Diverticulitis: Status: Acute (2) Acute UTI: Status: Acute (3) Severe sepsis: Status: Acute (4) Bandemia: Status: Acute Plan 72-year-old male with 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 need for HIDA General surgery following, no indication for intervention or testing Initially on IV vanco and Zosyn. Vanco dc, zosyn changed to Rocephin on 10/29, Advance diet with SWIMMING POOL SERVICER E.coli bacteremia, likely GI source Continue Abx as above Acute metabolic encephalopathy d/t above. Resolved Acute hypOkalemia replete, check level Acute hypOmagnesemia Repleted, check Anl-qpwyjnj-wrythfsbx type 2 diabetes with hyperglycemia Advanced to diabetic diet as tolerated POC glucose, SSI Hypertension toprolol Fecal impaction Fleets DVT prophylaxis: lovenox Full code Requires ongoing inpatient stay due to severe sepsis due to sigmoid diverticulitis and UTI requiring IV antibiotics and close monitoring of hemodynamics as well as expert consultation Quality Stroke Does the patient have a stroke diagnosis?: No VTE Prior VTE?: No VTE Risk Level:: Medical - moderate - high VTE Device Contraindication: Treatment Not Indicated VTE Drug Contraindication: N/A - Med Ordered
[2024-10-30] MEDS: Aspirin Enteric Coated 81 MG TABLET.DR PO (09:14)
[2024-10-30] MEDS: Metoprolol Succinate ER 25 MG TAB.ER.24H PO (09:14)
[2024-10-30] MEDS: Artificial Tears 15 ML DROPS 2 DROP EYE-BOTH ×4 (09:15→21:45)
[2024-10-30] MEDS: 0.9 % Sodium Chloride Flush 3 ML SYRINGE IVFLUSH ×3 (09:15→21:51)
[2024-10-30 11:13] LABS: Glucose, Whole Blood 286 mg/dL (60-115)
--- NOTE | 2024-10-30 13:02 | W.PM.IDCN ---
History of Present Illness Data of Consult Service Date: 10/29/24 Requesting physician: Galo Jeff Primary Care Provider: ALEC Vuong Reason for consult: sepsis,leukocyosis and tachycardia He presents to ER on 10/26 with nausea and vomiting. He has DM and has had prior enterococcus faecalis UTI and given Levaquin in June. He has E coli bacteremia and urine as well on 10/26. He has CT scan reported no definite diverticulitis. Review of Systems Review of Systems: Yes Unobtainable due to mental status PMFSH Past Medical History Medical History Leukocytosis Acute stroke due to ischemia Chronic back pain Type 2 diabetes mellitus without complications HTN (hypertension) Social History Social History Household Members: Family Housing: Apartment Do you presently have visiting nurse or other home services: Yes (PT) Patient Tobacco Use Status: Never used Tobacco service: No Meds Allergies Allergy/AdvReac Type Severity Reaction Status Date / Time No Known Allergies Allergy Verified 10/26/24 11:34 Active Medications: Current Medications Acetaminophen (Acetaminophen 325 Mg Tablet) 650 mg PO Q6H PRN PRN Reason: Pain, Mild 1-3,fever,headache Artificial Tears (Artificial Tears 15 Ml Drops) 2 drop EYE-BOTH QID [facility] Last Admin: 10/30/24 12:01 Dose: 2 drop Aspirin (Aspirin Enteric Coated 81 Mg Tablet.) 81 mg PO DAILY [facility] Last Admin: 10/30/24 09:14 Dose: 81 mg Atorvastatin Calcium (Atorvastatin Calcium 40 Mg Tablet) 40 mg PO BEDTIME [facility] Last Admin: 10/29/24 20:42 Dose: 40 mg Calcium Carbonate (Calcium Carbonate 750 Mg Tab.Chew) 750 mg PO Q4H PRN PRN Reason: Heartburn Ceftriaxone Sodium (Ceftriaxone Sodium 2 Gm Vial) 2 gm IVPUSH Q24H [facility] Last Admin: 10/29/24 16:37 Dose: 2 gm Dextrose (Dextrose 50 % 25 Gm/50 Ml Syringe) 25 gm IVPUSH Q15M PRN; Protocol PRN Reason: per Hypoglycemia Standing Ord. Enoxaparin Sodium (Enoxaparin Sodium 40 Mg/0.4 Ml Syringe) 40 mg SUBCUT Q24H [facility] Last Admin: 10/30/24 09:14 Dose: 40 mg Gabapentin (Gabapentin 100 Mg Capsule) 100 mg PO TID [facility] Last Admin: 10/30/24 09:14 Dose: 100 mg Glucose (Glucose Gel 15 Gm Gel..Gram.) 15 gm PO Q15M PRN; Protocol PRN Reason: per Hypoglycemia Standing Ord. Insulin Human Lispro (Insulin Lispro 100 Unit/Ml 3 Ml Vial) 0 unit SUBCUT QIDACHS [facility]; Protocol Last Admin: 10/30/24 12:00 Dose: 6 unit Lidocaine (Lidocaine 4 % Patch Adh..Patch) 1 patch TRANSDERMA DAILY [facility]; Protocol Last Admin: 10/30/24 09:15 Dose: Not Given Magnesium Hydroxide (Milk Of Magnesia 30 Ml Oral.Susp) 30 ml PO DAILY PRN PRN Reason: Constipation Melatonin (Melatonin 3 Mg Tablet) 6 mg PO BEDTIME PRN PRN Reason: Insomnia Metoprolol Succinate (Metoprolol Succinate Er 25 Mg Tab.Er.24h) 25 mg PO DAILY [facility]; Protocol Last Admin: 10/30/24 09:14 Dose: 25 mg Metronidazole (Metronidazole 500 Mg Tablet) 500 mg PO Q8H [facility] Last Admin: 10/30/24 09:17 Dose: 500 mg Ondansetron HCl (Ondansetron Hcl 4 Mg/2 Ml Vial) 4 mg IVPUSH Q8H PRN PRN Reason: Nausea and Vomiting Last Admin: 10/28/24 18:03 Dose: 4 mg Pharmacy Consult (Consult Rx Vancomycin Dosing) 1 each MISCELLANE DAILY PRN PRN Reason: Consult order Senna/Docusate Sodium (Sennosides/Docusate Sodium Tablet) 1 tab PO BID [facility] Last Admin: 10/30/24 09:16 Dose: Not Given Sitagliptin Phosphate (Sitagliptin Phosphate 50 Mg Tablet) 50 mg PO DAILY [facility] Last Admin: 10/30/24 09:14 Dose: 50 mg Sodium Biphosphate/Sodium Phosphate (Sodium Phosphate,[place]-Dibasic 133 Ml Enema) 133 ml SD ONCE PRN PRN Reason: fecal impaction Last Admin: 10/27/24 18:21 Dose: 133 ml Sodium Chloride (0.9 % Sodium Chloride Flush 3 Ml Syringe) 3 ml IVFLUSH QSHIFT [facility] Last Admin: 10/30/24 09:15 Dose: 3 ml Home Medications ?Medication ?Instructions ?Recorded ?Confirmed ?Last Taken ?Type metoprolol succinate 25 mg 25 mg PO DAILY 07/11/24 10/28/24 Unknown History tablet,extended release 24 hr acetaminophen 500 mg tablet 1,000 mg PO BID 10/28/24 10/28/24 Unknown History gabapentin 100 mg capsule 100 mg PO TID 10/28/24 10/28/24 Unknown History insulin lispro 100 unit/mL See Protocol subcut TIDAC 10/28/24 10/28/24 Unknown History subcutaneous pen lidocaine 4 % topical patch 1 patch topical DAILY 10/28/24 10/28/24 Unknown History metformin 1,000 mg tablet 1,000 mg PO BID 10/28/24 10/28/24 Unknown History polyvinyl alcohol 1.4 % eye drops 2 drp ophthalmic (eye) QID 10/28/24 10/28/24 Unknown History (Artificial Tears (polyvinyl alcohol)) sennosides 8.6 mg-docusate sodium 1 tab PO BID constipation 10/28/24 10/28/24 Unknown History 50 mg tablet (Stimulant Laxative Plus) sitagliptin phosphate 50 mg tablet 50 mg PO DAILY 10/28/24 10/28/24 Unknown History (Januvia) Physical Exam Vital Signs: Vital Signs: Last Vital Signs Temp 97.8 F 10/30/24 08:36 Pulse 65 10/30/24 08:36 Resp 16 10/30/24 08:36 BP 164/80 H 10/30/24 08:36 Pulse Ox 95 10/30/24 08:36 O2 Del Method Room Air 10/30/24 08:36 O2 Flow Rate 1 10/27/24 08:17 BMI result Body Mass Index 25.7 Const: General: cooperative HEENT: Head: Yes normal to inspection Face and sinus: Yes normal facial exam Mouth: Normal oral and palatal mucosa present Teeth and gingiva: dentition normal Eyes: General: appearance normal, both eyes and all related structures Pupils: Equal, round and reactive pupils present Resp: Effort & Inspection: normal respiratory effort Cardio: Rate: regular rate Rhythm: regular rhythm GI: Palpation (GI): Soft to palpation and nontender : General: Yes no CVA tenderness Back/Spine/Pelvis: Back: no CVA tenderness Skin: General skin exam: no rashes or lesions noted Neuro: Other: confusion General: moves all extremities Cranial nerves: Yes Equal, round and reactive pupils present Extrem: General: Yes normal to inspection Psych: Appearance: grossly normal Results Labs 10/30/24 06:17 10/30/24 06:17 Labs: Short CBC 10/30/24 Range/Units 06:17 WBC 12.9 H (4.8-10.8) X10*3/uL Hgb 10.8 L (14.0-18.0) g/dl Hct 31.7 L (42.0-52.0) % Plt Count 134 L (160-400) X10*3/uL BMP 10/30/24 06:17 Sodium 146 H Potassium 3.3 Chloride 109 H Carbon Dioxide 29 BUN 7 L Creatinine 0.72 Calcium 7.8 L Microbiology Microbiology Results: Microbiology 10/26/24 20:59 Blood - Venous Blood Culture - Final Escherichia coli 10/26/24 20:59 Blood - Venous Blood Culture - Final Escherichia coli 10/26/24 Unknown Urine clean catch - Clean Catch Midstream Urine Culture - Final Escherichia coli Assessment and Plan (1) Sepsis: Status: Acute Plan Sepsis,UTI E coli No obstruction seen Would continue Ceftriaxone and give po cephalosporin on discharge for 14 days total.
--- NOTE | 2024-10-30 15:04 | MHC.CM.PN ---
PT TO BE DCD 10/31 AT 11 FAMILY NOTIFIED
--- NOTE | 2024-10-30 15:43 | MHC.SL.SWA ---
Dysphasia Diet Status: Upgrade to NDD3/thin when OK to advance from clear liquid diet Liquid Consistency and Strategies for Safe Swallow: Liquid Intake Recommendation: Thin Solid Food Consistency: Dietary Recommendations: Chopped/Advanced (NDD3) Oral Medication Intake: Whole with Liquid Please contact the pharmacy regarding appropriate crushable or liquid drug formulations that are available whenever modified delivery is recommended. Compensatory Strategies and Precautions to be Taken for Safe Swallow: Supervision While Eating and Drinking for Safe Swallow: Intermittent Supervision Recommendation for Speech: Outpatient Speech Therapy Inpatient Speech Therapy Comment: Pt seen for clinical swallow evaluation at bedside. Recommend chopped/advanced solids (NDD3) and thin liquids once OK to advance from clear liquids diet. Pt reports hx of MBSS at [place] (July 2024?). He may benefit from updated study (inpatient vs. outpatient). Recommend continued LEAD JAVA DEVELOPER ARCHITECT tx for dysphagia, speech, and wordfinding at next level of care. Frequency/Duration: M-F while inpatient Factory Worker Clinican/Clinical Fellow: No Supervisory Statement: I have reviewed and agree with the student/clinical fellow's documentation: N/A Speech Language Pathologist: Rabia Abrams M.A., CCC-LEAD JAVA DEVELOPER ARCHITECT
[2024-10-30 15:56] VITALS: BP 169/79; PULSE 69; RESP 18; TEMP 36.7; O2SAT 96
[2024-10-30 16:22] LABS: Glucose, Whole Blood 184 mg/dL (60-115)
[2024-10-30 19:16] VITALS: BP 145/79; PULSE 67; RESP 16; TEMP 36.9; O2SAT 96
[2024-10-30 19:28] LABS: Glucose, Whole Blood 177 mg/dL (60-115)
[2024-10-31 03:08] VITALS: BP 161/77; PULSE 69; RESP 18; TEMP 36.9; O2SAT 95
--- NOTE | 2024-10-31 03:25 | PC.NURSE ---
Patient has an order for bladder scanning Q 6hr. Is incontinent , male purewick on. Canister emptied and as soon as noted output in canister patient was bladder scanned for 547 ml. Patient stated having pressure in abdomen. Dr Reed notified and order a st. cath. In the mean time patient voided again. Now bladder scanned for [address] Reed updated and still wants st. cath. First and second attempt unsuccessful, blood noted in tubing. Dr Reed aware and is okay if another nurse tries. Third attempt also with no result. At this time Dr. Reed advised to stop trying and monitor. No other new orders. Patient stable, no abdominal discomfort, no bleeding.
[2024-10-31 05:58] LABS: Hematocrit 30.5 % (42.0-52.0); Hemoglobin 10.4 g/dl (14.0-18.0); Mean Corpuscular HGB Conc 34.1 g/dl (31.0-36.0); Mean Corpuscular Hemoglobin 27.2 pg (27.0-33.0); Mean Corpuscular Volume 79.8 fL (80.0-98.0); NRBC Abs Auto 0.000 X10*3/uL (0.0-0.012); NRBC Pct Auto 0.0 /100WBC (0.0-0.2); Platelet Count 136 X10*3/uL (160-400); Red Blood Count 3.82 X10*6/uL (4.60-5.80); White Blood Count 8.1 X10*3/uL (4.8-10.8)
[2024-10-31 06:03] LABS: Anion Gap 10 (12-20); Blood Urea Nitrogen 5 mg/dL (9-16); Calcium 7.7 mg/dL (8.4-10.2); Carbon Dioxide 30 mmol/L (22-29); Chloride 106 mmol/L (96-108); Creatinine Clr Calc Pharmacy 87.3; Estimated Glomerular Filt Rate > 60; Magnesium 1.5 mg/dL (1.6-2.6); Potassium 3.1 mmol/L (3.3-5.1); Sodium 143 mmol/L (135-145)
[2024-10-31 06:49] VITALS: BP 154/90; PULSE 66; RESP 16; TEMP 36; O2SAT 96
[2024-10-31 07:04] LABS: Glucose, Whole Blood 158 mg/dL (60-115)
[2024-10-31] MEDS: Potassium Chloride Packet 20 MEQ PACKET 40 MEQ PO (07:40)
[2024-10-31] MEDS: Aspirin Enteric Coated 81 MG TABLET.DR PO (07:42)
[2024-10-31] MEDS: Metoprolol Succinate ER 25 MG TAB.ER.24H PO (07:42)
[2024-10-31] MEDS: Magnesium Sulfate/H2O 2 GM/50 ML PIGGYBACK IV (07:45)
[2024-10-31] MEDS: Artificial Tears 15 ML DROPS 2 DROP EYE-BOTH ×2 (07:54→12:46)
[2024-10-31] MEDS: 0.9 % Sodium Chloride Flush 3 ML SYRINGE IVFLUSH (07:54)
[2024-10-31 11:10] LABS: Glucose, Whole Blood 300 mg/dL (60-115)
[2024-10-31 11:35] LABS: Anion Gap 11 (12-20); Carbon Dioxide 31 mmol/L (22-29); Chloride 103 mmol/L (96-108); Magnesium 2.2 mg/dL (1.6-2.6); Potassium 3.5 mmol/L (3.3-5.1); Sodium 141 mmol/L (135-145)
--- NOTE | 2024-10-31 13:44 | P.DS_ITS ---
DS: Providers Provider Date of Service: 10/31/24 Date of admission: 10/26/24 21:10 Date of discharge: 10/31/24 Primary care physician: ALEC Vuong Consults: 10/27/24 11:21 Consult to General Surgery [place]ine [place]ing [place] [facility] [place] [facility] Reason for consultation: diverticulitis, sepsis- bandemia 10/29/24 09:12 Consult to Infectious Diseases Routine Consulting Provider[place] [facility] [place] [facility] Reason for consultation: GNR bacteremia DS: Diagnosis Discharge Diagnosis (1) Sepsis: Status: Acute DS: Summary Hospital Course Hospital Course: admission hpi Chief Complaint: Abdominal pain, vomiting This has a 74-year-old male with pertinent history of CVA status post residual right-sided hemiparesis and dysarthria, hypertension, jsy-cudxruw-dhlatfgnc diabetes mellitus who was brought to the emergency department for evaluation of abdominal pain and vomiting. Limited history from the patient due to dysarthria and confusion. History obtained with the help of niece. Patient's speech has never recovered since the stroke and he is hard to understand as per the niece. He started having nausea and vomiting 1 day prior to presentation. This continued and progressed on the day of presentation. He was also found to be confused by family members on the day of presentation. Had associated dizziness and weakness. Poor p.o. intake. Unable to obtain complete review of systems. In the emergency department, patient was found to be febrile and septic. Urine concerning for UTI and imaging with sigmoid diverticulitis. 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 coli UTI and E.coli bacteremia, initially treated with IV Vancomycin and Zosyn and once culture know to be Gram negative prabha was changed to Ceftriaxone, initial WBC of 22K went up to 33 and gradually has come down to normal presently at 8, he afebrile. A CT of abdomen suggested cystitis and possible diverticulitis although clinically did not have diverticulitis. He was seen by ID and recommended for a total of 14 days of antibiotics and transitioning from ceftriaxone to Cefuroxime at discharge. Acute metabolic encephalopathy d/t above. Resolved Acute hypOkalemia/Hypomagnesemia, repleted and resolved, K is 3.5 and Mag 2.2 Jax-oamvmrf-pgfevgfkb type 2 diabetes with hyperglycemia resume home meds Hypertension toprolol Fecal impaction Fleets resolved Dispo: To SNF as recommended by PT Time Attestation Discharge Coordination Time (in mins): 45 Quality: Safe Use of Opioids Does Pt have an Active Cancer Diagnosis on the Problem List?: No Quality: Stroke Does the patient have a stroke diagnosis?: No Physical Exam Vital Signs: Vital Signs: Last Vital Signs Temp 96.8 F 10/31/24 06:49 Pulse 66 10/31/24 06:49 Resp 16 10/31/24 06:49 BP 154/90 H 10/31/24 06:49 Pulse Ox 96 10/31/24 06:49 O2 Del Method Room Air 10/31/24 06:49 O2 Flow Rate 1 10/27/24 08:17 BMI result Body Mass Index 25.7 Constitutional - Awake and Alert, No apparent distress Eyes - PERRLA, EOMI Cardiovascular - S1S2, RRR, No edema Respiratory - Normal lung expansion, Normal respiratory effort, No respiratory distress, CTA bilaterally Gastrointestinal - mild ttp LLQ. ND; +BS; No rebound or guarding Extremities - no calf tenderness bilaterally, no swelling Skin - Warm/Dry Neurological - Alert & oriented x3 Psychological - Appropriate affect DS: Data Data Completed and Pending Labs on day of discharge: Laboratory Results - last 24 hr 10/30/24 10/30/24 10/31/24 16:14 19:11 05:04 WBC 8.1 RBC 3.82 L Hgb 10.4 L Hct 30.5 L MCV 79.8 L MCH 27.2 MCHC 34.1 RDW 14.1 Plt Count 136 L MPV 11.0 Absolute Nucleated RBC 0.000 Nucleated RBC % (auto) 0.0 Sodium 143 Potassium 3.1 L Chloride 106 Carbon Dioxide 30 H Anion Gap 10 L BUN 5 L Creatinine 0.64 Estim Creat Clear Calc 87.3 Estimated GFR > 60 POC Glucose 184 H 177 H Random Glucose 161 H Calcium 7.7 L Magnesium 1.5 L 10/31/24 10/31/24 10/31/24 07:01 10:51 11:06 WBC RBC Hgb Hct MCV MCH MCHC RDW Plt Count MPV Absolute Nucleated RBC Nucleated RBC % (auto) Sodium 141 Potassium 3.5 Chloride 103 Carbon Dioxide 31 H Anion Gap 11 L BUN Creatinine Estim Creat Clear Calc Estimated GFR POC Glucose 158 H 300 H Random Glucose Calcium Magnesium 2.2 Discharge Plan Discharge Anticipated Discharge Date/Time: 10/31/24 13:43 Patient Disposition: Xfer SNF Discharge Diagnosis: UTI, diverticulitis Referrals: [facility] [Other] - 1 Week Oc Avendano FNP-C [Primary Care Provider, Internal Medicine] - 1 Week Discharge Medications: New cefuroxime axetil 500 mg tablet 500 mg PO BID 10 Days Qty: 20 0RF Rx Instructions: next dose 11/01/24 AM Continued metoprolol succinate 25 mg Tablet Extended Release 24 Hr 25 mg PO DAILY atorvastatin 40 mg Tablet 40 mg PO BEDTIME Qty: 30 0RF aspirin 81 mg Tablet,Delayed Release (Dr/Ec) 81 mg PO DAILY Qty: 30 0RF lidocaine 4 % Adhesive Patch,Medicated 1 patch TOPICAL DAILY polyvinyl alcohol [Artificial Tears (polyvin alc)] 1.4 % Drops 2 drp OPHTHALMIC (EYE) QID sennosides-docusate sodium [Stimulant Laxative Plus] 8.6-50 mg tablet 1 tab PO BID acetaminophen 500 mg Tablet 1,000 mg PO BID metformin 1,000 mg tablet 1,000 mg PO BID gabapentin 100 mg Capsule 100 mg PO TID insulin lispro 100 unit/mL insulin pen See Protocol subcut TIDAC Protocol: Insulin Correction Scale Less than or equal to 110 ---- Give (units): 0 111 to 150 Give (units): 0 151 to 200 Give (units): 2 201 to 250 Give (units): 4 251 to 300 Give (units): 6 301 to 350 Give (units): 8 Greater than 350 Give (units): 10 Call MD if Blood Glucose > : 350 Januvia 50 mg tablet 50 mg PO DAILY Discharge Orders: Discharge Order (Routine); Ordered 10/31/24 Ordered By: Galo Jeff Diet: Advance to usual diet Activity on Discharge: As tolerated Stand Alone Forms: Patient Portal Discharge page Print Language: [place] Citizen Care Plan Goals: recovery from sepsis and UTI Health Concerns: UTI and sepsis Plan of Treatment: Take Cefuroxime as recommended and follow up with Doctor in a week Assessment: See above Patient Instructions: Urinary Tract Infection in Men (DC)
--- NOTE | 2024-10-31 14:02 | MHC.SLORD ---
Speech Language Pathology Order Status: Pt d/c today. MBSS fax not recieved by inpatient CUPOLA MELTER prior to pt d/c. Recc CUPOLA MELTER followup at next setting as indicated.
== END 2024-10-31 14:15 | disposition skilled nursing facility (03) | DRG 871 ==
LOC: HO.ED 22:25 → HO.EDOVER 22:34 → HO.S3 10-27 15:33
PROVIDERS: Physician Assistant; Admitting Provider Student in an Organized Health Care Education/Training Program; Emergency Provider Emergency Medicine; Visit Provider Internal Medicine
DX: A41.9 Sepsis, unspecified organism (principal); G93.41 Metabolic encephalopathy; I69.351 Hemiplegia and hemiparesis following cerebral infarction affecting right dominant side; K57.32 Diverticulitis of large intestine without perforation or abscess without bleeding; N39.0 Urinary tract infection, site not specified; E11.65 Type 2 diabetes mellitus with hyperglycemia; R65.20 Severe sepsis without septic shock; E87.6 Hypokalemia; K56.41 Fecal impaction; E83.42 Hypomagnesemia; Z20.822 Contact with and (suspected) exposure to COVID-19; I69.322 Dysarthria following cerebral infarction; B96.20 Unspecified Escherichia coli [E. coli] as the cause of diseases classified elsewhere; Z79.4 Long term (current) use of insulin; Z79.82 Long term (current) use of aspirin; Z79.84 Long term (current) use of oral hypoglycemic drugs; Z79.899 Other long term (current) drug therapy
CPT/HCPCS: 36415; 70450; 70551; 71045; 74177; 80048; 80051; 80076; 80202; 80307; 81001; 82565; 82947; 83605; 83735; 83880; 84145; 84484; 85007; 85025; 85027; 85610; 86140; 87040; 87077; 87086; 87088; 87186; 87205; 87637; 92610; 93005; 97162; 99285; J0131; J0696; J1650; J1836; J2405; J2543; J3374; J3475; J3480; J7120; Q9967

== ENCOUNTER → 2024-10-26 11:49 | Outpatient (BNV) | payer MEDICARE, SELFPAY | PROVIDERS: Emergency Provider Emergency Medicine; Visit Provider Radiology Diagnostic Radiology | DX: R10.9 Unspecified abdominal pain (principal); I67.82 Cerebral ischemia; R50.9 Fever, unspecified | CPT/HCPCS: 70450; 70551; 71045; 74177 ==

== ENCOUNTER → 2024-10-26 12:12 | Outpatient (BNV) | payer MEDICARE, SELFPAY | PROVIDERS: Admitting Provider Student in an Organized Health Care Education/Training Program; Emergency Provider Emergency Medicine; Visit Provider Internal Medicine Cardiovascular Disease | DX: I63.9 Cerebral infarction, unspecified (principal); R10.9 Unspecified abdominal pain | CPT/HCPCS: 93010 ==

== ENCOUNTER 2024-10-26 21:10 | Outpatient (BNV) | payer MEDICARE, SELFPAY | END 2024-10-27 10:28 | PROVIDERS: Admitting Provider Student in an Organized Health Care Education/Training Program; Emergency Provider Emergency Medicine; Visit Provider Radiology Diagnostic Radiology | DX: R18.8 Other ascites (principal) | CPT/HCPCS: 74177 ==

== ENCOUNTER → 2024-10-26 21:10 | Outpatient (BNV) | payer MEDICARE, SELFPAY | PROVIDERS: Admitting Provider Student in an Organized Health Care Education/Training Program; Emergency Provider Emergency Medicine; Visit Provider Student in an Organized Health Care Education/Training Program | DX: K57.92 Diverticulitis of intestine, part unspecified, without perforation or abscess without bleeding (principal); N39.0 Urinary tract infection, site not specified; A41.9 Sepsis, unspecified organism; R65.20 Severe sepsis without septic shock; D72.825 Bandemia | CPT/HCPCS: 99232 ==

== ENCOUNTER → 2024-10-26 21:10 | Outpatient (BNV) | payer MEDICARE, SELFPAY | PROVIDERS: Admitting Provider Student in an Organized Health Care Education/Training Program; Emergency Provider Emergency Medicine; Visit Provider Surgery | DX: D72.829 Elevated white blood cell count, unspecified (principal) | CPT/HCPCS: 99222; 99232; 99499 ==

== ENCOUNTER → 2024-10-26 21:10 | Outpatient (BNV) | payer MEDICARE, MEDICAID, SELFPAY | PROVIDERS: Admitting Provider Student in an Organized Health Care Education/Training Program; Emergency Provider Emergency Medicine; Visit Provider Internal Medicine | DX: A41.51 Sepsis due to Escherichia coli [E. coli] (principal) | CPT/HCPCS: 99232 ==